=== PATIENT | female | born 1965 | race Caucasian/White ===

== ENCOUNTER 2016-06-20 10:40 | Inpatient (IN) | payer OTHER ==
--- NOTE | 2016-06-20 11:21 | ED ---
Extremity Problem HPI - General Chief complaint: Extremity Problem,Nontraumatic Stated complaint: cellulitius Time Seen by Provider: 06/20/16 11:06 Source: patient, RN notes reviewed Mode of arrival: ambulatory Limitations: no limitations - History of Present Illness Initial comments: 50-year-old female presents emergency Department chief complaint left hand, arm infection. Patient states with the last 24 hours she has noticed streaking from her left hand at the MCP all up into her left axilla. Patient states she' s had this in the past and has almost from this. Patient states have not been able to figure out what causes this. Patient states that she did not have an injury to her hand but she states she has a wound at her MCP. Patient denies any fever but states that she's had chills. She states that she just generally does not feel well. Patient denies any chest pain, shortness breath, headache or dizziness. - Related Data Home Medications Medication Instructions Recorded Confirmed Aspirin/Acetaminophen/Caffeine 2 tab PO DAILY PRN 06/20/16 06/20/16 [Excedrin Migraine Caplet] Dronabinol [Dronabinol] 2.5 mg PO BID 06/20/16 06/20/16 Gabapentin [Neurontin] 600 mg PO TID 06/20/16 06/20/16 Rizatriptan Benzoate [Rizatriptan] 10 mg PO DAILY PRN 06/20/16 06/20/16 diphenhydrAMINE [Benadryl] 25 mg PO HS 06/20/16 06/20/16 traMADol HCL [Tramadol HCl] 50 mg PO HS 06/20/16 06/20/16 Previous Rx's Medication Instructions Recorded Albuterol Sulfate [Ventolin HFA] 2 puff INHALATION Q4H PRN #1 12/09/13 inhaler LORazepam [Ativan] 1 mg PO BID PRN #12 tab 12/15/13 Loratadine [Claritin] 10 mg PO DAILY #30 tab 05/17/14 Metoprolol Tartrate [Lopressor] 25 mg PO BID #14 tablet 05/17/14 Ondansetron Odt [Zofran ODT] 4 mg PO Q8HR PRN #15 tab 06/16/15 Allergies Allergy/AdvReac Type Severity Reaction Status Date / Time metoclopramide HCl Allergy Anaphylaxis Verified 06/20/16 12:30 [From Reglan] morphine Allergy Anaphylaxis Verified 06/20/16 12:30 prochlorperazine edisylate Allergy Anaphylaxis Verified 06/20/16 12:30 [From Compazine] prochlorperazine maleate Allergy Anaphylaxis Verified 06/20/16 12:30 [From Compazine] Tetracyclines Allergy Anaphylaxis Verified 06/20/16 12:30 Review of Systems ROS Statement: Those systems with pertinent positive or pertinent negative responses have been documented in the HPI. ROS Other: All systems not noted in ROS Statement are negative. Past Medical History Past Medical History: GERD/Reflux, Hypertension Additional Past Medical History / Comment(s): pancreatitis, IBS, neuropathy, Renauds, back PAIN, migraines, vitamin D deficiency History of Any Multi-Drug Resistant Organisms: None Reported Past Surgical History: Cholecystectomy, Tonsillectomy Additional Past Surgical History / Comment(s): neuroma, cervix, permanent stitches in common bile duct and pancreatic duct Past Psychological History: Anxiety, Depression Smoking Status: Current every day smoker Past Alcohol Use History: None Reported Past Drug Use History: Marijuana General Exam Limitations: no limitations General appearance: alert, in no apparent distress Head exam: Present: atraumatic, normocephalic, normal inspection Respiratory exam: Present: normal lung sounds bilaterally. Absent: respiratory distress, wheezes, rales, rhonchi, stridor Cardiovascular Exam: Present: regular rate, normal rhythm, normal heart sounds. Absent: systolic murmur, diastolic murmur, rubs, gallop, clicks Extremities exam: Present: other (Left hand there is 2 pustules noted at the MCP on the dorsal aspect with erythematous streaking from the hand to her left axilla there is no palpable lymph nodes in the left axilla pulses are equal bilaterally) Neurological exam: Present: alert Skin exam: Present: warm, dry Course Vital Signs 06/20/16 10:45 Temperature 98.8 F Pulse Rate 88 Respiratory 20 Rate Blood Pressure 119/75 O2 Sat by Pulse 98 Oximetry Medical Decision Making - Lab Data Result diagrams: 06/20/16 12:24 06/20/16 12:24 Lab Results 06/20/16 06/20/16 Range/Units 12:24 12:24 WBC 8.3 (3.8-10.6) k/uL RBC 4.22 (3.80-5.40) m/uL Hgb 13.7 (11.4-16.0) gm/dL Hct 41.2 (34.0-46.0) % MCV 97.6 (80.0-100.0) fL MCH 32.3 (25.0-35.0) pg MCHC 33.1 (31.0-37.0) g/dL RDW 13.2 (11.5-15.5) % Plt Count 267 (150-450) k/uL Neutrophils % 82 % Lymphocytes % 13 % Monocytes % 3 % Eosinophils % 1 % Basophils % 0 % Neutrophils # 6.7 (1.3-7.7) k/uL Lymphocytes # 1.1 (1.0-4.8) k/uL Monocytes # 0.3 (0-1.0) k/uL Eosinophils # 0.1 (0-0.7) k/uL Basophils # 0.0 (0-0.2) k/uL Sodium 143 (137-145) mmol/L Potassium 4.3 (3.5-5.1) mmol/L Chloride 109 H (98-107) mmol/L Carbon Dioxide 25 (22-30) mmol/L Anion Gap 9 mmol/L BUN 12 (7-17) mg/dL Creatinine 0.55 (0.52-1.04) mg/dL Est GFR (MDRD) Af Amer >60 (>60 ml/min/1.73 sqM) Est GFR (MDRD) Non-Af >60 (>60 ml/min/1.73 sqM) Glucose 99 (74-99) mg/dL Calcium 9.4 (8.4-10.2) mg/dL Total Bilirubin 0.5 (0.2-1.3) mg/dL AST 21 (14-36) U/L ALT 18 (9-52) U/L Alkaline Phosphatase 47 (38-126) U/L Total Protein 7.5 (6.3-8.2) g/dL Albumin 4.4 (3.5-5.0) g/dL Disposition Clinical Impression: Cellulitis, Lymphangitis Disposition: ADMITTED IP TO THIS [facility] Condition: Fair
[2016-06-20 12:33] LABS: Basophils % (A) 0 %; CH 33.1; CHCM 34.1; Eosinophils # (A) 0.1 k/uL (0-0.7); Eosinophils % (A) 1 %; HCT 41.2 % (34.0-46.0); HDW 2.49; HGB 13.7 gm/dL (11.4-16.0); Luc # (Auto) 0.08; Luc % (Auto) 1; Lymphocytes # (A) 1.1 k/uL (1.0-4.8); Lymphocytes % (A) 13 %; MCH 32.3 pg (25.0-35.0); MCHC 33.1 g/dL (31.0-37.0); MCV 97.6 fL (80.0-100.0); Monocytes # (A) 0.3 k/uL (0-1.0); Monocytes % (A) 3 %; Neutrophils # (A) 6.7 k/uL (1.3-7.7); Neutrophils % (A) 82 %; RBC 4.22 m/uL (3.80-5.40); RDW 13.2 % (11.5-15.5); WBC 8.3 k/uL (3.8-10.6); WBC (Perox) 8.33
[2016-06-20 12:45] LABS: Anion Gap 9 mmol/L; Calcium 9.4 mg/dL (8.4-10.2); Carbon Dioxide 25 mmol/L (22-30); Chloride 109 mmol/L (98-107); Glucose 99 mg/dL (74-99); Non-African American GFR(MDRD) >60 (>60 ml/min/1.73 sqM); Sodium 143 mmol/L (137-145); Total Bilirubin 0.5 mg/dL (0.2-1.3); Total Protein 7.5 g/dL (6.3-8.2)
[2016-06-20 12:47] LABS: ALT 18 U/L (9-52); AST 21 U/L (14-36); Alkaline Phosphatase 47 U/L (38-126); Blood Urea Nitrogen 12 mg/dL (7-17); Potassium 4.3 mmol/L (3.5-5.1)
[2016-06-20] MEDS ORDERED: IV VANCOMYCIN PER PHARMACY 1 EACH MISC MISCELLANE PRN (12:56)
[2016-06-20] MEDS ORDERED: AMPICILLIN-SULBACTAM 3 GM in SODIUM CHLORIDE 0.9% 100 ML IVPB STA (12:58)
[2016-06-20] MEDS ORDERED: ACETAMINOPHEN TAB 325 MG TAB PO PRN (12:59)
[2016-06-20] MEDS ORDERED: NALOXONE 0.4 MG/ML 1 ML VIAL IV PRN (12:59)
[2016-06-20] MEDS ORDERED: IBUPROFEN 400 MG TAB PO PRN (12:59)
[2016-06-20] MEDS ORDERED: SUMAtriptan SUCCINATE 50 MG TAB PO PRN (13:01)
[2016-06-20] MEDS ORDERED: ALBUTEROL NEBULIZED 2.5 MG/3 ML INHALATION PRN (13:01)
[2016-06-20] MEDS ORDERED: ONDANSETRON ODT 4 MG TAB PO PRN (13:01)
[2016-06-20] MEDS ORDERED: VANCOMYCIN 1,250 MG in SODIUM CHLORIDE 0.9% 250 ML IVPB STA (13:02)
[2016-06-20 14:38] VITALS: BMI 19.2
[2016-06-20] MEDS: GABAPENTIN 300 MG CAP PO SCH ×2 (15:10→20:48)
[2016-06-20] MEDS: NICOTINE 14MG/24HR PATCH TRANSDERM SCH (16:14)
[2016-06-20] MEDS: DRONABINOL 2.5 MG CAP PO SCH (16:14)
[2016-06-20] MEDS ORDERED: ASPIRIN-ACET-CAFF 250-250-65MG 1 EACH TAB PO PRN (20:44)
[2016-06-20] MEDS: diphenhydrAMINE 25 MG CAP PO SCH (20:48)
[2016-06-20] MEDS: LORazepam 1 MG TAB PO PRN (20:48)
[2016-06-20] MEDS: traMADol 50 MG TAB PO SCH (20:48)
[2016-06-20] MEDS: METOPROLOL TARTRATE 25 MG TAB PO SCH (20:48)
[2016-06-20] MEDS ORDERED: TEMAZEPAM 15 MG CAP PO PRN (21:00)
[2016-06-20] MEDS: VANCOMYCIN 1,000 MG in SODIUM CHLORIDE 0.9% 250 ML IVPB SCH (21:36)
[2016-06-21] MEDS: AMPICILLIN-SULBACTAM 3 GM in SODIUM CHLORIDE 0.9% 100 ML IVPB SCH ×4 (00:53→23:29)
[2016-06-21 02:48] LABS: Amorphous Sediment,Urine Rare /hpf; Appearance,Urine Turbid (Clear); Bilirubin,Urine Negative (Negative); Glucose,Urine (UA) Negative (Negative); Ketones,Urine Negative (Negative); Leukocyte Esterase,Urine Negative (Negative); Mucus,Urine Many /hpf; Nitrite,Urine Negative (Negative); Particle Count 14759; Protein,Urine 1+ (Negative); Specific Gravity,Urine 1.028 (1.001-1.035); Squamous Epithelial Cell,Urine 11 /hpf (0-4); UA Billing (MACRO vs. MICRO) MICRO; Urobilinogen,Urine <2.0 mg/dL (<2.0); WBC,Urine 9 /hpf (0-5)
[2016-06-21] MEDS: DRONABINOL 2.5 MG CAP PO SCH ×2 (07:56→17:31)
[2016-06-21] MEDS: LORATADINE 10 MG TAB PO SCH (07:57)
[2016-06-21] MEDS: METOPROLOL TARTRATE 25 MG TAB PO SCH ×2 (07:57→20:45)
[2016-06-21] MEDS: GABAPENTIN 300 MG CAP PO SCH ×3 (07:57→21:05)
[2016-06-21] MEDS: NICOTINE 14MG/24HR PATCH TRANSDERM SCH (07:58)
--- NOTE | 2016-06-21 08:10 | HP ---
DATE OF ADMISSION: Chief complaints are pain and swelling of the hand with red streaking. HISTORY OF PRESENT ILLNESS: This is a 50-year-old woman with a past medical history of GERD, hypertension, history of pancreatitis, irritable bowel syndrome, history of peripheral neuropathy, Raynaud's syndrome, history of back pain, migraines, vitamin D deficiency, tonsillectomy, cholecystectomy, history of neuroma, history of History of anxiety, depression, PTSD not otherwise specified. History of nicotine dependence, being followed by Dr. Finch in the outpatient setting. Has a recurrent infection of the left hand on several occasions which for the last 20 years which the patient has been dealing with. The patient had multiple evaluations in multiple hospitals including [facility], [facility] and other hospitals without any definite diagnosis according to her and also varying diagnosis. The current episode started about 24 hours ago as redness and subsequently patient had discharge and streaking going up the arm. The primary lesion is around the metacarpal phalangeal joints on the dorsum of the left hand. This is no history of any fever, chills or rigors. There is no history of headache, loss of consciousness or seizures. PAST MEDICAL HISTORY: History of GERD, hypertension, history of pancreatitis, IBS, neuropathy, Raynaud's, back pain, migraine, anxiety, depression, PTSD, cholecystectomy, tonsillectomy. Medications prior to admission include, home medications are: 1. Rizatriptan 10 mg daily p.r.n. 2. Excedrin 2 tablets daily p.r.n. 3. Ultram 50 mg q.h.s. 4. Benadryl 25 mg q.h.s. 5. Dronabinol 2.5 mg p.o. b.i.d. 6. Lopressor 25 mg b.i.d. 7. Claritin 10 mg daily. 8. Ativan 1 mg b.i.d. p.r.n. 9. Neurontin 600 mg p.o. t.i.d. 10. Ventolin HFA 2 puffs q.4 p.r.n. 11. Zofran ODT 4 mg q.8 p.r.n. Allergies are METOCLOPRAMIDE, MORPHINE, COMPAZINE, TETRACYCLINE. FAMILY HISTORY: No history of any heart disease or strokes in the family. SOCIAL HISTORY: History of current smoking. No history of alcohol or illicit substance abuse. REVIEW OF SYSTEMS: ENT: No diminishing hearing or diminished vision. CARDIOVASCULAR SYSTEM: No angina or palpitations. RESPIRATORY: No cough, hemoptysis. GI: No nausea. : No dysuria. NERVOUS SYSTEM: No numbness or weakness. ALLERGY/IMMUNOLOGY: No asthma or hayfever. MUSCULOSKELETAL: As mentioned earlier. DERMATOLOGY: Negative. ENDOCRINE: No history of diabetes or hypothyroidism. CONSTITUTIONAL: As mentioned earlier. RHEUMATOLOGY: As mentioned earlier. PSYCHIATRY: As mentioned earlier. PHYSICAL EXAMINATION: Patient is alert and oriented x3. Pulse 79, blood pressure 120/81, respirations 16, temperature is 97.3, pulse ox 99% on room air. HEENT: Conjunctivae normal, oral mucosa moist. Neck is no jugular venous distention. No carotid bruit. No lymph node enlargement. CARDIOVASCULAR SYSTEM: S1, S2, muffled. No S3, no S4. RESPIRATION: Breath sounds diminished at the bases. A few rhonchi, no crackles. Abdomen is soft, nontender. No mass palpable. LEGS: No edema, no swelling. NERVOUS SYSTEM: Higher functions as mentioned. Cranial nerves grossly intact. No focal motor or sensory deficits. LYMPHATICS: No lymph node enlargement in the neck, axillae or groin. Otherwise, examination of the left arm with significant erythema and punctate lesions in the dorsum of second metacarpophalangeal joint with some erythema, tenderness and some streaking has been going up to the axilla. Lab investigations at this time shows WBC is 8.3, hemoglobin is 13.7, chloride is 109. ASSESSMENT: 1. Acute cellulitis of the right hand dorsum with lymphangitis. 2. History of recurrent cellulitis and lymphangitis. 3. History of gastroesophageal reflux disease. 4. Hypertension history. 5. History of pancreatitis. 6. History of irritable bowel syndrome. 7. History of neuropathy. 8. History of Raynaud's. 9. History of back pain. 10. History of migraines. 11. History of degenerative joint disease and a herniated at C4-5. 12. History of cervical cancer. 13. History of cholecystectomy. 14. History of tonsillectomy. 15. History of neuroma. 16. History of anxiety, depression, posttraumatic stress disorder, not otherwise specified. 17. History of nicotine dependence. RECOMMENDATION: In this 50-year-old woman who presented with multiple complex medical issues, will monitor the patient closely. Continue with the current symptomatic treatment with initial broad-spectrum IV antibiotics and also Infectious Disease evaluation. The home medications will be continued. All cultures were obtained. Prognosis guarded because of multiple complex medical issues. Further recommendations to follow. A copy of this dictation will be forwarded to Dr. Finch who is the primary physician. See orders for details. DVT prophylaxis. MTDD
[2016-06-21 09:56] LABS: Basophils % (A) 0 %; CH 32.8; CHCM 33.3; Eosinophils # (A) 0.1 k/uL (0-0.7); Eosinophils % (A) 1 %; HCT 35.9 % (34.0-46.0); HDW 2.42; HGB 11.9 gm/dL (11.4-16.0); Luc # (Auto) 0.08; Luc % (Auto) 1; Lymphocytes # (A) 1.2 k/uL (1.0-4.8); Lymphocytes % (A) 16 %; MCH 32.8 pg (25.0-35.0); MCHC 33.2 g/dL (31.0-37.0); MCV 98.8 fL (80.0-100.0); Mean Platelet Volume 8.4; Monocytes # (A) 0.4 k/uL (0-1.0); Monocytes % (A) 5 %; Neutrophils # (A) 5.7 k/uL (1.3-7.7); Neutrophils % (A) 77 %; RBC 3.63 m/uL (3.80-5.40); WBC 7.4 k/uL (3.8-10.6); WBC (Perox) 7.48
[2016-06-21 10:26] LABS: Anion Gap 8 mmol/L; Blood Urea Nitrogen 10 mg/dL (7-17); Calcium 8.7 mg/dL (8.4-10.2); Carbon Dioxide 24 mmol/L (22-30); Chloride 110 mmol/L (98-107); Glucose 100 mg/dL (74-99); Non-African American GFR(MDRD) >60 (>60 ml/min/1.73 sqM); Potassium 3.9 mmol/L (3.5-5.1); Sodium 142 mmol/L (137-145)
[2016-06-21] MEDS: VANCOMYCIN 1,000 MG in SODIUM CHLORIDE 0.9% 250 ML IVPB SCH ×2 (10:57→21:05)
[2016-06-21 11:58] LABS: Erythrocyte Sedimentation Rate 2 mm/hr (0-20)
--- NOTE | 2016-06-21 12:26 | P.CONS ---
History of Present Illness - Reason for Consult Consult date: 06/21/16 Left arm cellulitis - History of Present Illness This is a 50-year-old female. She gives history that she has had 18 episodes of cellulitis to the left hand over the past 20 years. She states 20 years ago she did have an I&D done to the hand. She was last treated in June 2015 and she came to the [facility] emergency center on 2 occasions for treatment. She was treated with Cefzil for 10 days and valacyclovir for herpes zoster dermatitis and was later changed to clindamycin and Valtrex was continued. Patient states that she had sudden onset of left hand redness swelling and streaking that went all the way up to her axilla area. She states she has had chills at home. She denies any new injury or trauma to the hand. She does have cats in the home and denies any cat scratch or bite to the area. She presented to [facility] emergency center with the above complaint. She has been afebrile, white count 8.3. Urinalysis was turbid nitrate and leukoesterase negative. Urine drug screen was positive for benzodiazepines and marijuana. Patient does use a medical marijuana card and is also on Marinol. Blood culture is status received. Patient was started on Unasyn and vancomycin and [facility]. She has had significant improvement of the redness spreading up her arm. There is currently no active drainage. Tetanus status is up-to-date. Review of Systems All systems: negative Constitutional: Reports weakness, Denies chills, Denies fever Eyes: denies blurred vision, denies pain Ears, nose, mouth and throat: Denies headache, Denies sore throat Cardiovascular: Denies chest pain, Denies shortness of breath Respiratory: Denies cough Gastrointestinal: Denies abdominal pain, Denies diarrhea, Denies nausea, Denies vomiting Genitourinary: Denies dysuria, Denies hematuria Musculoskeletal: Denies myalgias Integumentary: Reports color changes, Reports darkening of skin, Reports wounds , Denies pruritus, Denies rash Neurological: Denies numbness, Denies weakness Psychiatric: Denies anxiety, Denies depression Endocrine: Denies fatigue, Denies weight change Past Medical History Past Medical History: GERD/Reflux, Hypertension Additional Past Medical History / Comment(s): pancreatitis, IBS, neuropathy, Raynauds, back PAIN, migraines, herniated disks C4 and C5; Cervical cancer History of Any Multi-Drug Resistant Organisms: None Reported Past Surgical History: Cholecystectomy, Tonsillectomy Additional Past Surgical History / Comment(s): neuroma, cervical coninition, permanent stitches in common bile duct and pancreatic, and sphincter of Oddi duct Past Anesthesia/Blood Transfusion Reactions: No Reported Reaction Past Psychological History: Anxiety, Depression, PTSD Smoking Status: Current every day smoker Past Alcohol Use History: None Reported Additional Past Alcohol Use History / Comment(s): Patient is a smoker of half a pack per day for 13 years. She smokes marijuana and has a medical marijuana card. She is also on Marinol. She denies any street drug use. She denies any alcohol use. Her 22-year-old son lives with her. There are cats in the home. She denies any recent travel and no hobbies such as gardening. Past Drug Use History: None Reported Medications and Allergies Home Medications Medication Instructions Recorded Confirmed Type Aspirin/Acetaminophen/Caffeine 2 tab PO DAILY PRN 06/20/16 06/20/16 History [Excedrin Migraine Caplet] Dronabinol [Dronabinol] 2.5 mg PO BID 06/20/16 06/20/16 History Gabapentin [Neurontin] 600 mg PO TID 06/20/16 06/20/16 History Rizatriptan Benzoate [Rizatriptan] 10 mg PO DAILY PRN 06/20/16 06/20/16 History diphenhydrAMINE [Benadryl] 25 mg PO HS 06/20/16 06/20/16 History traMADol HCL [Tramadol HCl] 50 mg PO HS 06/20/16 06/20/16 History Allergies Allergy/AdvReac Type Severity Reaction Status Date / Time metoclopramide HCl Allergy Anaphylaxis Verified 06/20/16 12:30 [From Reglan] morphine Allergy Anaphylaxis Verified 06/20/16 12:30 prochlorperazine edisylate Allergy Anaphylaxis Verified 06/20/16 12:30 [From Compazine] prochlorperazine maleate Allergy Anaphylaxis Verified 06/20/16 12:30 [From Compazine] Tetracyclines Allergy Anaphylaxis Verified 06/20/16 12:30 Physical Exam Vitals: Vital Signs Temp Pulse Pulse Pulse Resp BP BP 06/21/16 07:00 98.2 F 69 20 125/70 06/20/16 23:00 98.3 F 77 18 115/72 06/20/16 20:30 83 123/83 06/20/16 19:14 70 06/20/16 19:02 70 06/20/16 14:59 97.3 F L 79 16 120/81 06/20/16 13:53 98.2 F 69 20 117/75 Pulse Ox 06/21/16 07:00 98 06/20/16 23:00 97 06/20/16 20:30 06/20/16 19:14 06/20/16 19:02 06/20/16 14:59 99 06/20/16 13:53 98 Intake and Output 06/20/16 06/21/16 06/21/16 22:59 06:59 14:59 Intake Total 250 100 Balance 250 100 Intake: IV 250 Vancomycin 1,000 mg In 250 Sodium Chloride 0.9% 250 ml @ 125 mls/hr IVPB Q12HR@1000,2200 [facility] Rx#: [id number] Oral 100 Other: Voiding Method Toilet # Voids 0 1 Gen: This is a 50-year-old female. She is sitting up in bed and appears to be in no acute distress. HEENT: Head is atraumatic, normocephalic. Pupils equal, round. Sclerae is anicteric. Conjunctiva pink. Mucous members of the mouth are moist. Dentition is in poor order. NECK: Supple. No JVD. No lymphadenopathy. No thyromegaly. LUNGS: Clear to auscultation. No wheezes or rhonchi. No intercostal retractions. HEART: Regular rate and rhythm. No murmur. ABDOMEN: Soft. Bowel sounds are present. No masses. No tenderness. EXTREMITIES: No pedal edema. No calf tenderness. Dorsalis pedis is weak bilaterally. To the right dorsal hand there is a lesion over the distal third metacarpal with no drainage. There is erythema and edema over the hand with erythema spreading up to the antecubital area. NEUROLOGICAL: Patient is awake, alert and oriented x3. Cranial nerves 2 through 12 are grossly intact. Results Results: Laboratory Results WBC 7.4 k/uL (3.8-10.6) 06/21/16 09:05 RBC 3.63 m/uL (3.80-5.40) L 06/21/16 09:05 Hgb 11.9 gm/dL (11.4-16.0) 06/21/16 09:05 Hct 35.9 % (34.0-46.0) 06/21/16 09:05 MCV 98.8 fL (80.0-100.0) 06/21/16 09:05 MCH 32.8 pg (25.0-35.0) 06/21/16 09:05 MCHC 33.2 g/dL (31.0-37.0) 06/21/16 09:05 RDW 13.0 % (11.5-15.5) 06/21/16 09:05 Plt Count 194 k/uL (150-450) 06/21/16 09:05 Neutrophils % 77 % 06/21/16 09:05 Lymphocytes % 16 % 06/21/16 09:05 Monocytes % 5 % 06/21/16 09:05 Eosinophils % 1 % 06/21/16 09:05 Basophils % 0 % 06/21/16 09:05 Neutrophils # 5.7 k/uL (1.3-7.7) 06/21/16 09:05 Lymphocytes # 1.2 k/uL (1.0-4.8) 06/21/16 09:05 Monocytes # 0.4 k/uL (0-1.0) 06/21/16 09:05 Eosinophils # 0.1 k/uL (0-0.7) 06/21/16 09:05 Basophils # 0.0 k/uL (0-0.2) 06/21/16 09:05 ESR 2 mm/hr (0-20) 06/21/16 09:05 Sodium 142 mmol/L (137-145) 06/21/16 09:05 Potassium 3.9 mmol/L (3.5-5.1) 06/21/16 09:05 Chloride 110 mmol/L (98-107) H 06/21/16 09:05 Carbon Dioxide 24 mmol/L (22-30) 06/21/16 09:05 Anion Gap 8 mmol/L 06/21/16 09:05 BUN 10 mg/dL (7-17) 06/21/16 09:05 Creatinine 0.51 mg/dL (0.52-1.04) L 06/21/16 09:05 Est GFR (MDRD) Af Amer >60 (>60 ml/min/1.73 sqM) 06/21/16 09:05 Est GFR (MDRD) Non-Af >60 (>60 ml/min/1.73 sqM) 06/21/16 09:05 Glucose 100 mg/dL (74-99) H 06/21/16 09:05 Plasma Lactic Acid Karlo 1.2 mmol/L (0.7-2.0) 06/20/16 12:48 Calcium 8.7 mg/dL (8.4-10.2) 06/21/16 09:05 Total Bilirubin 0.5 mg/dL (0.2-1.3) 06/20/16 12:24 AST 21 U/L (14-36) 06/20/16 12:24 ALT 18 U/L (9-52) 06/20/16 12:24 Alkaline Phosphatase 47 U/L (38-126) 06/20/16 12:24 C-Reactive Protein <5.0 mg/L (<10.0) 06/20/16 12:24 Total Protein 7.5 g/dL (6.3-8.2) 06/20/16 12:24 Albumin 4.4 g/dL (3.5-5.0) 06/20/16 12:24 Urine Color Yellow 06/21/16 02:30 Urine Appearance Turbid (Clear) H 06/21/16 02:30 Urine pH 7.0 (5.0-8.0) 06/21/16 02:30 Ur Specific Indian 1.028 (1.001-1.035) 06/21/16 02:30 Urine Protein 1+ (Negative) H 06/21/16 02:30 Urine Glucose (UA) Negative (Negative) 06/21/16 02:30 Urine Ketones Negative (Negative) 06/21/16 02:30 Urine Blood Negative (Negative) 06/21/16 02:30 Urine Nitrite Negative (Negative) 06/21/16 02:30 Urine Bilirubin Negative (Negative) 06/21/16 02:30 Urine Urobilinogen <2.0 mg/dL (<2.0) 06/21/16 02:30 Ur Leukocyte Esterase Negative (Negative) 06/21/16 02:30 Urine WBC 9 /hpf (0-5) H 06/21/16 02:30 Ur Squamous Epith Cells 11 /hpf (0-4) H 06/21/16 02:30 Amorphous Sediment Rare /hpf (None) H 06/21/16 02:30 Urine Mucus Many /hpf (None) H 06/21/16 02:30 Urine Opiates Screen Not Detected (NotDetected) 06/21/16 02:30 Ur Oxycodone Screen Not Detected (NotDetected) 06/21/16 02:30 Urine Methadone Screen Not Detected (NotDetected) 06/21/16 02:30 Ur Propoxyphene Screen Not Detected (NotDetected) 06/21/16 02:30 Ur Barbiturates Screen Not Detected (NotDetected) 06/21/16 02:30 U Tricyclic Antidepress Not Detected (NotDetected) 06/21/16 02:30 Ur Phencyclidine Scrn Not Detected (NotDetected) 06/21/16 02:30 Ur Amphetamines Screen Not Detected (NotDetected) 06/21/16 02:30 U Methamphetamines Scrn Not Detected (NotDetected) 06/21/16 02:30 U Benzodiazepines Scrn Detected (NotDetected) H 06/21/16 02:30 Urine Cocaine Screen Not Detected (NotDetected) 06/21/16 02:30 U Marijuana (THC) Screen Detected (NotDetected) H 06/21/16 02:30 CBC & Chem 7: 06/21/16 09:05 06/21/16 09:05 Labs: Abnormal Lab Results - Last 24 Hours (Table) 06/21/16 Range/Units 02:30 Urine Appearance Turbid H (Clear) Urine Protein 1+ H (Negative) Urine WBC 9 H (0-5) /hpf Ur Squamous Epith Cells 11 H (0-4) /hpf Amorphous Sediment Rare H (None) /hpf Urine Mucus Many H (None) /hpf U Benzodiazepines Scrn Detected H (NotDetected) U Marijuana (THC) Screen Detected H (NotDetected) Assessment and Plan Plan: This is a 50-year-old female presented to the hospital with cellulitis to the left hand with a descending lymphangitis. She has been started on Unasyn and vancomycin with significant improvement of her symptoms. No wound cultures available. Blood cultures status received. Tetanus status is up-to-date. Immunocompromise workup will be placed. Ensure has been resumed per patient's request and probiotic has been started. Continue supportive care. Further recommendations as patient progresses. The above dictated assessment and findings were discussed with Dr. Sal. The impression and plan of care have been directed as dictated. Sara Dao nurse practitioner acting as scribe for Dr. Sal. Time with Patient: Greater than 30
--- NOTE | 2016-06-21 16:13 | P.PN ---
Subjective Disservice by [id number]. Progress note being dictated for Dr. Johnson. Interval history: This is a 50-year-old female admitted with recurrent left hand cellulitis with lymphangitis and multiple other medical issues. Maintained on vancomycin and Unasyn. Improving. Denies pain of affected extremity. Afebrile, normal WBC. Denies chest pain, palpitations or increasing shortness of breath. Objective - Vital Signs Vital signs: Vital Signs Temp 98.1 F 06/21/16 15:00 Pulse 55 L 06/21/16 15:00 Resp 18 06/21/16 15:00 BP 121/76 06/21/16 15:00 Pulse Ox 99 06/21/16 15:00 Intake & Output 06/20/16 06/21/16 06/21/16 18:59 06:59 18:59 Intake Total 350 Balance 350 Weight 47.627 kg 47.627 kg Intake: IV 250 Vancomycin 1,000 mg In 250 Sodium Chloride 0.9% 250 ml @ 125 mls/hr IVPB Q12HR@1000,2200 [facility] Rx#: [id number] Oral 100 Other: Voiding Method Toilet Toilet # Voids 1 3 - Exam PHYSICAL EXAM: VITAL SIGNS: As above GENERAL: Sitting up in bed, no acute distress] HEENT: [Pupils equal conjunctiva normal.] NECK: [Supple, no JVD] RESPIRATORY EFFORT:[Normal] LUNGS: [Lungs clear, no wheezes rhonchi or crackles] CARDIOVASCULAR[regular S1 and S2, no murmurs rubs or gallops, decreasing edema] GI: [Abdomen soft, nontender, positive bowel sounds.] PSYCH: [Alert and oriented -3, mood and affect normal.] SKIN: Left hand, decreased pinkness, erythema, positive edema, warm, positive radial pulse, no drainage NEURO: No focal deficits, moves all 4 extremities Microbiology 06/20/16 12:24 Blood Blood Culture - Preliminary No Growth after 24 hours 06/21/16 02:30 Urine,Clean Catch Urine Culture - Preliminary - Labs CBC & Chem 7: 06/21/16 09:05 06/21/16 09:05 Labs: Abnormal Lab Results - Last 24 Hours (Table) 06/21/16 06/21/16 06/21/16 Range/Units 02:30 09:05 09:05 RBC 3.63 L (3.80-5.40) m/uL Chloride 110 H (98-107) mmol/L Creatinine 0.51 L (0.52-1.04) mg/dL Glucose 100 H (74-99) mg/dL Urine Appearance Turbid H (Clear) Urine Protein 1+ H (Negative) Urine WBC 9 H (0-5) /hpf Ur Squamous Epith Cells 11 H (0-4) /hpf Amorphous Sediment Rare H (None) /hpf Urine Mucus Many H (None) /hpf U Benzodiazepines Scrn Detected H (NotDetected) U Marijuana (THC) Screen Detected H (NotDetected) Microbiology - Last 24 Hours (Table) 06/21/16 02:30 Urine Culture - Preliminary Urine,Clean Catch Assessment and Plan Plan: 1. Acute cellulitis of left hand dorsum with lymphangitis,recurrent]. 2. Gastroesophageal reflux disease 3. [Hypertension]. 4. [Irritable bowel syndrome, history of]. 5. [Neuropathy]. 6. [Raynauds disease]. 7. [Chronic Back pain, degenerative joint disease, herniated at C4-5]. 8. History of anxiety, depression, posttraumatic stress disorder, not otherwise specified 9. History of nicotine dependence Plan: Continue on current medication regime , antibiotics, monitoring and symptomatic treatment. Antibiotics as per infectious disease. Follow cultures closely. Further recommendations to follow. The impression and plan of care has been dictated as directed. : I performed a H&P examination of this patient and discussed the same with the dictator. I agree with the dictator's note. Any additional findings/opinions/ etc. will be noted.
[2016-06-21] MEDS: LACTOBACILLUS ACIDOPH & BULGAR 1 EACH PACKET PO SCH (20:37)
--- NOTE | 2016-06-21 20:41 | P.CON ---
Consult Note - . Consult date: 06/21/16 Assessment/Plan:: This is a 50-year-old female. She gives history that she has had 18 episodes of cellulitis to the left hand over the past 20 years. She states 20 years ago she did have an I&D done to the hand. She was last treated in June 2015 and she came to the [facility] emergency center on 2 occasions for treatment. She was treated with Cefzil for 10 days and valacyclovir for herpes zoster dermatitis and was later changed to clindamycin and Valtrex was continued. Patient states that she had sudden onset of left hand redness swelling and streaking that went all the way up to her axilla area. She states she has had chills at home. She denies any new injury or trauma to the hand. She does have cats in the home and denies any cat scratch or bite to the area. She presented to [facility] emergency center with the above complaint. She has been afebrile, white count 8.3. Urinalysis was turbid nitrate and leukoesterase negative. Urine drug screen was positive for benzodiazepines and marijuana. Patient does use a medical marijuana card and is also on Marinol. Blood culture is status received. Patient was started on Unasyn and vancomycin and admitted to the [facility] floor. She has had significant improvement of the redness spreading up her arm. There is currently no active drainage. Tetanus status is up-to-date. Please see the consult note is dictated by nurse practitioner Sara Hernándezneo. This pleasant 42-year-old woman has a very extensive past medical history for her age. She does relate that she's had many bouts of lesions to her left hand. She relates that it is always in the same spot. She develops a few blisters at the dorsum of the left third metacarpal head. After which she develops the ascending infection and lymphangitis. She's had several hospitalizations. 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 At this time with the occurrence, with a common lesion at the same place would make a herpetic filemon a likely source of her recurrent infection at this site. There is blister that is present in this is unroofed and material was sent for herpes PCR. Routine wound culture is also sent. She is receiving antibiotic therapy because of the ascending lymphangitis. It seems to be having quite a good response at this time. We'll continue current antibiotics while cultures are process. Oral antiviral therapy with Valtrex as initiated given the current high probability of the herpetic process. The patient is instructed about the potential. In that the drainage that would come from this area would be infectious. She does have a bit of a prodrome before the onset of the lesions. If it's happening once a year and we prove that it is herpetic in nature, she would be able to utilize a preemptive antiviral therapy in the future to prevent further severe disease. Given that it's only yearly would not likely be a candidate for daily antiviral suppressive therapy. The patient is a slight build and further workup is being initiated including an IgG level, and complement factors to ensure there is adequate immune response at this time. She has been for 5 years. I agree with evaluation, assessment and plan as dictated by nurse practitioner Mrs. Sara Dao.
[2016-06-21] MEDS: diphenhydrAMINE 25 MG CAP PO SCH (20:45)
[2016-06-21] MEDS: traMADol 50 MG TAB PO SCH (20:46)
[2016-06-21] MEDS ORDERED: valACYclovir 500 MG TAB PO SCH (21:00)
[2016-06-21] MEDS: LORazepam 1 MG TAB PO PRN (21:05)
[2016-06-22] MEDS: DRONABINOL 2.5 MG CAP PO SCH ×2 (07:51→16:28)
[2016-06-22] MEDS: LORazepam 1 MG TAB PO PRN (07:51)
[2016-06-22] MEDS: AMPICILLIN-SULBACTAM 3 GM in SODIUM CHLORIDE 0.9% 100 ML IVPB SCH ×2 (07:52→15:05)
[2016-06-22] MEDS: METOPROLOL TARTRATE 25 MG TAB PO SCH (07:52)
[2016-06-22] MEDS: GABAPENTIN 300 MG CAP PO SCH ×2 (07:52→15:06)
[2016-06-22] MEDS: LACTOBACILLUS ACIDOPH & BULGAR 1 EACH PACKET PO SCH (07:52)
[2016-06-22] MEDS: NICOTINE 14MG/24HR PATCH TRANSDERM SCH (07:52)
[2016-06-22] MEDS: LORATADINE 10 MG TAB PO SCH (07:52)
[2016-06-22] MEDS ORDERED: VANCOMYCIN TROUGH DUE 1 EACH MISC MISCELLANE ONE (09:00)
[2016-06-22] MEDS: valACYclovir HCL 1,000 MG TABLET PO SCH (09:36)
[2016-06-22 09:44] LABS: Basophils % (A) 1 %; CHCM 34.1; Eosinophils % (A) 1 %; HCT 36.3 % (34.0-46.0); HDW 2.49; Luc # (Auto) 0.09; Luc % (Auto) 2; Lymphocytes # (A) 1.2 k/uL (1.0-4.8); Lymphocytes % (A) 29 %; MCH 32.2 pg (25.0-35.0); MCHC 33.1 g/dL (31.0-37.0); MCV 97.2 fL (80.0-100.0); Mean Platelet Volume 7.3; Monocytes # (A) 0.3 k/uL (0-1.0); Monocytes % (A) 7 %; Neutrophils # (A) 2.4 k/uL (1.3-7.7); Neutrophils % (A) 61 %; RBC 3.74 m/uL (3.80-5.40); WBC 3.9 k/uL (3.8-10.6); WBC (Perox) 4.08
[2016-06-22 09:57] LABS: Anion Gap 8 mmol/L; Blood Urea Nitrogen 7 mg/dL (7-17); Calcium 8.8 mg/dL (8.4-10.2); Carbon Dioxide 24 mmol/L (22-30); Chloride 110 mmol/L (98-107); Glucose 91 mg/dL (74-99); Non-African American GFR(MDRD) >60 (>60 ml/min/1.73 sqM); Potassium 3.7 mmol/L (3.5-5.1); Sodium 142 mmol/L (137-145)
[2016-06-22] MEDS: VANCOMYCIN 1,000 MG in SODIUM CHLORIDE 0.9% 250 ML IVPB SCH ×2 (10:38→16:28)
--- NOTE | 2016-06-22 10:45 | PN ---
DATE OF SERVICE: 06/21/2016 This is a 50-year-old woman who was admitted with acute cellulitis of the left hand and recurrent lymphangitis, is being monitored closely and is on broad-spectrum IV antibiotics. Seen and evaluated the patient with the nurse practitioner. Please refer to the nurse practitioner's notes and impression documented as ascribed for further information.
[2016-06-22] MEDS ORDERED: METOPROLOL TARTRATE 25 MG TAB ONE (21:00)
[2016-06-22] MEDS ORDERED: LORazepam 1 MG TAB ONE (21:00)
[2016-06-22] MEDS ORDERED: diphenhydrAMINE 25 MG CAP ONE (21:00)
[2016-06-22] MEDS ORDERED: traMADol 50 MG TAB ONE (21:00)
[2016-06-22] MEDS ORDERED: GABAPENTIN 300 MG CAP ONE (21:00)
[2016-06-22] MEDS ORDERED: valACYclovir HCL 1,000 MG TABLET PO ONE (21:00)
[2016-06-23 07:26] VITALS: BP 121/76; PULSE 62; RESP 18; TEMP 97.1
[2016-06-23] MEDS: valACYclovir HCL 1,000 MG TABLET PO SCH ×2 (07:57→08:45)
[2016-06-23] MEDS: traMADol 50 MG TAB PO SCH (07:57)
[2016-06-23] MEDS: LACTOBACILLUS ACIDOPH & BULGAR 1 EACH PACKET PO SCH ×2 (07:57→08:45)
[2016-06-23] MEDS: METOPROLOL TARTRATE 25 MG TAB PO SCH ×2 (07:57→08:45)
[2016-06-23] MEDS: diphenhydrAMINE 25 MG CAP PO SCH (07:57)
[2016-06-23] MEDS: AMPICILLIN-SULBACTAM 3 GM in SODIUM CHLORIDE 0.9% 100 ML IVPB SCH ×2 (07:58→08:44)
[2016-06-23] MEDS: VANCOMYCIN 1,000 MG in SODIUM CHLORIDE 0.9% 250 ML IVPB SCH ×2 (07:58→10:34)
[2016-06-23] MEDS: GABAPENTIN 300 MG CAP PO SCH ×2 (07:58→08:45)
[2016-06-23] MEDS: DRONABINOL 2.5 MG CAP PO SCH (08:44)
[2016-06-23] MEDS: NICOTINE 14MG/24HR PATCH TRANSDERM SCH (08:45)
[2016-06-23] MEDS: LORATADINE 10 MG TAB PO SCH (08:45)
--- NOTE | 2016-06-23 11:28 | PN ---
DATE OF SERVICE: 06/22/2016 This 50-year-old woman who was admitted with acute cellulitis, also No chest pain, no palpitation, no fever. The patient was started on acyclovir. On exam, alert and oriented x3. Pulse is 71, blood pressure 123/78, temperature 98.9, pulse ox 98% on room air. HEENT: Conjunctivae normal. NECK: No JVD. CARDIAC: S1, S2 LUNGS: Diminished at the bases. A few rhonchi, no crackles. ABDOMEN: Soft, nontender. NEURO: No focal deficits. LABS: WBC 3, hemoglobin is 12, sodium 142, potassium 3.7. UA noted. ASSESSMENT: 1. Acute cellulitis of the left hand dorsum with lymphangitis, recurrent. 2. Gastroesophageal reflux disease. 3. Hypertension. 5. Irritable bowel syndrome history. 6. History of neuropathy. 7. History Raynaud's. 8. History of chronic back pain, degenerative joint disease and herniated disc C4-5. 9. History of anxiety and depression, posttraumatic stress disorder, not otherwise specified. 10. History of nicotine dependence. Recommendations and discussion: Recommendation to continue current medication, continue symptomatic treatment. Continue with antibiotics. Continue with antivirals. Guarded prognosis. Further recommendations to follow. MTDD
[2016-06-23 11:45] LABS: Basophils % (A) 1 %; CH 33.1; Eosinophils % (A) 1 %; HCT 36.8 % (34.0-46.0); HDW 2.63; HGB 12.8 gm/dL (11.4-16.0); Luc % (Auto) 2; Lymphocytes # (A) 1.5 k/uL (1.0-4.8); Lymphocytes % (A) 30 %; MCH 32.9 pg (25.0-35.0); MCHC 34.7 g/dL (31.0-37.0); MCV 94.9 fL (80.0-100.0); Mean Platelet Volume 7.1; Monocytes # (A) 0.3 k/uL (0-1.0); Monocytes % (A) 5 %; Neutrophils # (A) 3.1 k/uL (1.3-7.7); Neutrophils % (A) 62 %; RBC 3.88 m/uL (3.80-5.40); RDW 12.6 % (11.5-15.5); WBC (Perox) 5.29
[2016-06-23 11:48] LABS: Anion Gap 8 mmol/L; Blood Urea Nitrogen 10 mg/dL (7-17); Calcium 9.2 mg/dL (8.4-10.2); Carbon Dioxide 25 mmol/L (22-30); Chloride 109 mmol/L (98-107); Glucose 91 mg/dL (74-99); Non-African American GFR(MDRD) >60 (>60 ml/min/1.73 sqM); Potassium 4.7 mmol/L (3.5-5.1); Sodium 142 mmol/L (137-145)
[2016-06-23] MEDS ORDERED: VANCOMYCIN TROUGH DUE 1 EACH MISC MISCELLANE ONE (23:00)
--- NOTE | 2016-06-26 20:40 | DS ---
DATE OF ADMISSION: 06/20/2016 DATE OF DISCHARGE: 06/23/2016 FINAL DIAGNOSES: 1. Acute cellulitis of the left hand, dorsum, with lymphangitis, recurrent. 2. Gastroesophageal reflux disease. 3. Herpetic filemon possibly. 4. Hypertension. 5. Irritable bowel syndrome. 6. History of neuropathy. 7. History of Raynaud's. 8. History of chronic back pain, degenerative joint disease as well as herniated disc at C4-5. 9. History of anxiety, depression, post-traumatic disorder not otherwise specified. 10. History of nicotine dependence. 11. FULL CODE. DISCHARGE DISPOSITION: The patient will be discharged in stable condition with a guarded prognosis. Discharge cleared by multiple consultants. HISTORY OF PRESENT ILLNESS: This 50-year-old woman with a past medical history of severe cellulitis and infection of the dorsum of the left hand. The patient was thought to have a combination of cellulitis as well as herpetic filemon. Dr. Sal saw the patient. Patient was treated with antibiotics and antivirals; improved significantly. The cultures and pancultures are pending at this time. The complements levels are normal. Other reports are pending at this time. On exam, vitals are stable. CARDIOVASCULAR SYSTEM: S1, S2 muffled. ABDOMEN: Soft. NERVOUS SYSTEM: No focal deficit. DISCHARGE ADVICE AND MEDICATIONS: 1. Diet is cardiac. 2. Activity limited until followup. 3. Follow up with Dr. Finch in 1 to 2 days. 4. Follow up with Dr. Sal as recommended. 5. Albuterol HFA 2 puffs q.i.d. and p.r.n. 6. Augmentin 875 mg p.o. b.i.d. for 5 days. 7. Aspirin acetaminophen 2 tablets p.o. daily p.r.n. 8. Dronabinol 2.5 mg p.o. b.i.d. 9. Neurontin 600 mg p.o. b.i.d. 10. Ativan 1 mg b.i.d. p.r.n. 11. Claritin 10 mg p.o. daily. 12. Lopressor 25 mg p.o. b.i.d. 13. Habitrol 14 daily. 14. No smoking. 15. Zofran 4 mg p.o. q.8 p.r.n. 16. Rizatriptan 10 mg daily p.r.n. 17. Benadryl 25 mg p.o. at bedtime. 18. Ultram 50 mg p.o. at bedtime. 19. Valtrex 1000 mg p.o. b.i.d. for 10 days and then continue to follow with Dr. Sal. Once again, the patient will be discharged in stable condition with guarded prognosis. [facility]
== END 2016-06-23 15:33 | disposition home or self-care (01) | DRG 603 ==
LOC: EC 10:40 → SUPCPDRO 10:40 → 4MS4W 13:09 → OBSVTOIN 13:09
PROVIDERS: ADMIT Internal Medicine; ATTEND Internal Medicine
DX: L03.114 Cellulitis of left upper limb (principal); B02.8 Zoster with other complications; I10 Essential (primary) hypertension; G62.9 Polyneuropathy, unspecified; M50.221 Other cervical disc displacement at C4-C5 level; F17.200 Nicotine dependence, unspecified, uncomplicated; F43.10 Post-traumatic stress disorder, unspecified; I73.00 Raynaud's syndrome without gangrene; K21.9 Gastro-esophageal reflux disease without esophagitis; K58.9 Irritable bowel syndrome, unspecified; E55.9 Vitamin D deficiency, unspecified; F32.9 Major depressive disorder, single episode, unspecified; F41.9 Anxiety disorder, unspecified; G43.909 Migraine, unspecified, not intractable, without status migrainosus; G89.29 Other chronic pain; M19.90 Unspecified osteoarthritis, unspecified site; M50.321 Other cervical disc degeneration at C4-C5 level; Z79.899 Other long term (current) drug therapy; Z79.82 Long term (current) use of aspirin; Z88.1 Allergy status to other antibiotic agents; Z88.5 Allergy status to narcotic agent; Z88.8 Allergy status to other drugs, medicaments and biological substances
CPT/HCPCS: 36415; 80048; 80053; 80202; 80306; 81001; 82784; 82785; 83605; 85025; 85652; 86140; 86160; 86162; 87040; 87070; 87086; 87205; 87529; 94640; 99285

== ENCOUNTER 2017-03-20 08:55 | Emergency (ER) | payer OTHER ==
[2017-03-20 09:11] VITALS: TEMP 99
[2017-03-20] MEDS ORDERED: SODIUM CHLORIDE 0.9% 1,000 ML IV ONE (09:28)
[2017-03-20] MEDS ORDERED: KETOROLAC 30 MG/ML 1 ML VIAL IVP STA (09:29)
[2017-03-20] MEDS ORDERED: ONDANSETRON 4 MG/2 ML VIAL IVP STA (09:29)
--- NOTE | 2017-03-20 09:37 | ED ---
Abdominal Pain HPI - General Chief Complaint: Abdominal Pain Stated Complaint: Abd Pain, nauseated Time Seen by Provider: 03/20/17 09:15 Source: patient, RN notes reviewed Mode of arrival: ambulatory Limitations: no limitations - History of Present Illness Initial Comments: This is a 51-year-old female who presents with a chief complaint of chronic abdominal pain. Her pain is located in the right upper quadrant, right back, and right epigastric region. She has a history of pancreatitis, cholecystitis and other abdominal surgeries. The patient has been controlling her pain with Dronabinol, but had a recent insurance change where they will no longer cover the medication for her. She last took the medication 3 weeks ago, and began experiencing nausea and vomiting 6 days after discontinuing the Dronabinol. The patient reports taking Vicodin, which did not help with her pain. She states that she has been working with her Dronabinol prescriber, but has been unsuccessful in getting the medication covered. She was instructed to come to the ED if she was unable to tolerate the pain. - Related Data Home Medications Medication Instructions Recorded Confirmed Aspirin/Acetaminophen/Caffeine 2 tab PO DAILY PRN 06/20/16 03/20/17 [Excedrin Migraine Caplet] Dronabinol 2.5 mg PO BID 06/20/16 03/20/17 Gabapentin [Neurontin] 600 mg PO TID 06/20/16 03/20/17 Rizatriptan Benzoate [Rizatriptan] 10 mg PO DAILY PRN 06/20/16 03/20/17 diphenhydrAMINE [Benadryl] 25 mg PO HS 06/20/16 03/20/17 Albuterol Sulfate [Ventolin HFA] 2 puff INHALATION RT-Q6H PRN 03/20/17 03/20/17 Famotidine [Pepcid AC] 10 mg PO BID PRN 03/20/17 03/20/17 Nicotine 7Mg/24Hr Patch [Habitrol 1 patch TRANSDERM DAILY 03/20/17 03/20/17 7Mg/24Hr Patch] Omeprazole [PriLOSEC] 20 mg PO DAILY 03/20/17 03/20/17 Vitamin D3 200iu 200 unit PO DAILY 03/20/17 03/20/17 Previous Rx's Medication Instructions Recorded LORazepam [Ativan] 1 mg PO BID PRN #12 tab 12/15/13 Loratadine [Claritin] 10 mg PO DAILY #30 tab 05/17/14 Metoprolol Tartrate [Lopressor] 25 mg PO BID #14 tablet 05/17/14 Ondansetron Odt [Zofran ODT] 4 mg PO Q8HR PRN #15 tab 06/16/15 Hydrocodone/Acetaminophen [Canton 1 tab PO Q6HR PRN #10 tab 03/20/17 5-325] Allergies Allergy/AdvReac Type Severity Reaction Status Date / Time metoclopramide HCl Allergy Anaphylaxis Verified 03/20/17 09:44 [From Reglan] morphine Allergy Anaphylaxis Verified 03/20/17 09:44 prochlorperazine edisylate Allergy Anaphylaxis Verified 03/20/17 09:44 [From Compazine] prochlorperazine maleate Allergy Anaphylaxis Verified 03/20/17 09:44 [From Compazine] Tetracyclines Allergy Anaphylaxis Verified 03/20/17 09:44 levofloxacin [From Levaquin] AdvReac Nausea & Verified 03/20/17 09:44 Vomiting Review of Systems ROS Statement: Those systems with pertinent positive or pertinent negative responses have been documented in the HPI. ROS Other: All systems not noted in ROS Statement are negative. Past Medical History Past Medical History: Cancer, GERD/Reflux, Hypertension Additional Past Medical History / Comment(s): pancreatitis, IBS, neuropathy, Raynauds, back PAIN, migraines, herniated disks C4 and C5; Cervical cancer, herpetic filemon History of Any Multi-Drug Resistant Organisms: None Reported Past Surgical History: Cholecystectomy, Tonsillectomy Additional Past Surgical History / Comment(s): neuroma, cervical coninition, permanent stitches in common bile duct and pancreatic, and sphincter of Oddi duct Past Anesthesia/Blood Transfusion Reactions: No Reported Reaction Past Psychological History: Anxiety, Depression, PTSD Smoking Status: Current every day smoker Past Alcohol Use History: None Reported Past Drug Use History: None Reported General Exam Limitations: no limitations General appearance: alert, in no apparent distress Head exam: Present: atraumatic, normocephalic, normal inspection Eye exam: Present: normal appearance, PERRL, EOMI. Absent: scleral icterus, conjunctival injection, periorbital swelling Respiratory exam: Present: normal lung sounds bilaterally. Absent: respiratory distress, wheezes, rales, rhonchi, stridor Cardiovascular Exam: Present: regular rate, normal rhythm, normal heart sounds. Absent: systolic murmur, diastolic murmur, rubs, gallop, clicks GI/Abdominal exam: Present: soft, tenderness (generalized abdominal tenderness) , normal bowel sounds. Absent: distended, guarding, rebound, rigid, organomegaly, mass Back exam: Present: normal inspection, tenderness (mild tenderness to palpation of the right medial mid-back) Neurological exam: Present: alert, oriented X3, CN II-XII intact Psychiatric exam: Present: normal affect, normal mood Skin exam: Present: warm, dry, intact, normal color. Absent: rash Course Vital Signs 03/20/17 09:07 Temperature 99.0 F Pulse Rate 96 Respiratory 18 Rate Blood Pressure 159/82 O2 Sat by Pulse 96 Oximetry Medical Decision Making - Medical Decision Making 51-year-old female presented from for chronic abdominal issues pancreatitis. Patient's labwork is unremarkable vitals are stable. I did explain that she needs a follow-up with primary care physician for pain medication and figure out what their prescribers secondary to her insurance not covering her cannabis. Patient will be discharged at this time return parameters were discussed. - Lab Data Result diagrams: 03/20/17 09:35 03/20/17 09:35 Lab Results 03/20/17 03/20/17 03/20/17 Range/Units 09:35 09:35 10:00 WBC 7.2 (3.8-10.6) k/uL RBC 4.21 (3.80-5.40) m/uL Hgb 13.7 (11.4-16.0) gm/dL Hct 39.4 (34.0-46.0) % MCV 93.7 (80.0-100.0) fL MCH 32.6 (25.0-35.0) pg MCHC 34.8 (31.0-37.0) g/dL RDW 12.2 (11.5-15.5) % Plt Count 267 (150-450) k/uL Neutrophils % 60 % Lymphocytes % 31 % Monocytes % 6 % Eosinophils % 2 % Basophils % 1 % Neutrophils # 4.3 (1.3-7.7) k/uL Lymphocytes # 2.3 (1.0-4.8) k/uL Monocytes # 0.4 (0-1.0) k/uL Eosinophils # 0.1 (0-0.7) k/uL Basophils # 0.0 (0-0.2) k/uL Sodium 143 (137-145) mmol/L Potassium 4.1 (3.5-5.1) mmol/L Chloride 105 (98-107) mmol/L Carbon Dioxide 26 (22-30) mmol/L Anion Gap 12 mmol/L BUN 15 (7-17) mg/dL Creatinine 0.70 (0.52-1.04) mg/dL Est GFR (MDRD) Af Amer >60 (>60 ml/min/1.73 sqM) Est GFR (MDRD) Non-Af >60 (>60 ml/min/1.73 sqM) Glucose 103 H (74-99) mg/dL Calcium 9.6 (8.4-10.2) mg/dL Total Bilirubin 0.3 (0.2-1.3) mg/dL AST 22 (14-36) U/L ALT 22 (9-52) U/L Alkaline Phosphatase 46 (38-126) U/L Total Protein 7.4 (6.3-8.2) g/dL Albumin 4.5 (3.5-5.0) g/dL Amylase 59 (30-110) U/L Lipase 157 (23-300) U/L Urine Color Yellow Urine Appearance Slightly Cloudy H (Clear) Urine pH 6.0 (5.0-8.0) Ur Specific Kimper 1.030 (1.001-1.035) Urine Protein 1+ (Negative) Urine Glucose (UA) Negative (Negative) Urine Ketones 1+ (Negative) Urine Blood Negative (Negative) Urine Nitrite Negative (Negative) Urine Bilirubin 1+ H (Negative) Urine Urobilinogen 2.0 (<2.0) mg/dL Ur Leukocyte Esterase Negative (Negative) Urine WBC 1 (0-5) /hpf Ur Squamous Epith Cells 6 H (0-4) /hpf Calcium Oxalate Crystal Rare H (None) /hpf Urine Mucus Many H (None) /hpf Disposition Clinical Impression: Chronic abdominal pain Disposition: HOME SELF-CARE Condition: Stable Instructions: Abdominal Pain (ED) Additional Instructions: Please return to the Emergency Department if symptoms worsen or any other concerns. Prescriptions: Hydrocodone/Acetaminophen [Canton 5-325] 1 tab PO Q6HR PRN #10 tab PRN Reason: Pain Referrals: Ridge Finch III, MD [Primary Care Provider] - 1-2 days Time of Disposition: 11:16
[2017-03-20 10:00] LABS: Basophils % (A) 1 %; Eosinophils # (A) 0.1 k/uL (0-0.7); Eosinophils % (A) 2 %; HCT 39.4 % (34.0-46.0); HGB 13.7 gm/dL (11.4-16.0); Lymphocytes # (A) 2.3 k/uL (1.0-4.8); Lymphocytes % (A) 31 %; MCH 32.6 pg (25.0-35.0); MCHC 34.8 g/dL (31.0-37.0); MCV 93.7 fL (80.0-100.0); Mean Platelet Volume 7.6; Monocytes # (A) 0.4 k/uL (0-1.0); Monocytes % (A) 6 %; Neutrophils # (A) 4.3 k/uL (1.3-7.7); Neutrophils % (A) 60 %; Platelet Count 267 k/uL (150-450); RBC 4.21 m/uL (3.80-5.40); RDW 12.2 % (11.5-15.5); WBC 7.2 k/uL (3.8-10.6)
[2017-03-20 10:11] LABS: ALT 22 U/L (9-52); AST 22 U/L (14-36); Albumin 4.5 g/dL (3.5-5.0); Alkaline Phosphatase 46 U/L (38-126); Amylase 59 U/L (30-110); Anion Gap 12 mmol/L; Blood Urea Nitrogen 15 mg/dL (7-17); Calcium 9.6 mg/dL (8.4-10.2); Carbon Dioxide 26 mmol/L (22-30); Chloride 105 mmol/L (98-107); Glucose 103 mg/dL (74-99); Lipase 157 U/L (23-300); Potassium 4.1 mmol/L (3.5-5.1); Sodium 143 mmol/L (137-145); Total Bilirubin 0.3 mg/dL (0.2-1.3); Total Protein 7.4 g/dL (6.3-8.2)
[2017-03-20 10:25] LABS: Calcium Oxalate Crystals,Urine Rare /hpf; Mucus,Urine Many /hpf; Squamous Epithelial Cell,Urine 6 /hpf (0-4); WBC,Urine 1 /hpf (0-5)
[2017-03-20 10:29] LABS: Appearance,Urine Slightly Cloudy (Clear); Color,Urine Yellow; Protein,Urine 1+ (Negative)
[2017-03-20 10:30] LABS: Bilirubin,Urine 1+ (Negative); Blood,Urine Negative (Negative); Glucose,Urine (UA) Negative (Negative); Ketones,Urine 1+ (Negative); Leukocyte Esterase,Urine Negative (Negative); Nitrite,Urine Negative (Negative)
[2017-03-20] MEDS ORDERED: HYDROmorphone 0.5 MG/0.5 ML SYRINGE IVP STA (10:40)
[2017-03-20 11:29] VITALS: BP 129/78; PULSE 73; RESP 16
[2017-03-21 14:12] LABS: Bilirubin Confirmation, Urine QNS (Negative)
== END 2017-03-20 11:36 | disposition home or self-care (01) ==
LOC: EC 08:55
DX: G89.29 Other chronic pain (principal); R10.13 Epigastric pain; R10.11 Right upper quadrant pain; K21.9 Gastro-esophageal reflux disease without esophagitis; F17.200 Nicotine dependence, unspecified, uncomplicated; Z85.41 Personal history of malignant neoplasm of cervix uteri; Z90.49 Acquired absence of other specified parts of digestive tract; Z79.899 Other long term (current) drug therapy; Z88.8 Allergy status to other drugs, medicaments and biological substances; Z88.5 Allergy status to narcotic agent; Z88.1 Allergy status to other antibiotic agents
CPT/HCPCS: 36415; 80053; 82150; 83690; 85025; 81001; 99284; 96374; 96375 ×2; 96361 ×2; J2405; J1885; J1170

== ENCOUNTER → 2018-01-06 | Outpatient (CLI) | payer OTHER ==
--- NOTE | 2018-01-06 11:57 | MM ---
Reason for exam: clinical finding. History: Patient had first child at age 35. Family history of breast cancer in sister at age 47, breast cancer in maternal aunt at age 70, and breast cancer in maternal grandmother at age 50. Took hormonal contraceptives for 3 years beginning at age 18. Indicated problem(s): lump or thickening and pain in the right breast. Physical Findings: Nurse Summary: 1cm nodule in the right breast at 11 o'clock (nurse cw). [facility] Diagnostic Mammo w CAD MARSHA Bilateral CC and MLO view(s) were taken. No prior studies available for comparison. The breast tissue is extremely dense which could obscure a lesion on mammography. Finding: There is a complex coarse calcifications in the 6 o'clock lower quadrant, middle position of the left breast, 3cm from the nipple. Subtle distortion right MLO view, not on ML. These results were verbally communicated with the patient and result sheet given to the patient on 01/06/18. ASSESSMENT: Benign, BI-RAD 2 RECOMMENDATION: Routine screening mammogram of both breasts in 1 year. Manage on a clinical basis with regard to palpable.
--- NOTE | 2018-01-06 11:59 | USB ---
Reason for exam: clinical finding. History: Patient had first child at age 35. Family history of breast cancer in sister at age 47, breast cancer in maternal aunt at age 70, and breast cancer in maternal grandmother at age 50. Took hormonal contraceptives for 3 years beginning at age 18. US Breast BILAT Right complete breast ultrasound includes all four quadrants, the retroareolar region and axilla. Finding demonstrates a 0.9 x 1.0 x 0.7cm oval, cystic lesion at 10 o'clock BB, a 0.8 x 1.1 x 0.4cm oval, cystic lesion at 10 o'clock and a 0.5 x 0.6 x 0.4cm oval, cystic lesion at 11 o'clock. Corresponds to palpable. Left complete breast ultrasound includes all four quadrants, the retroareolar region and axilla. Finding demonstrates a 0.7 x 0.4 x 0.7cm node at 3 o'clock, 6cm from nipple. These results were verbally communicated with the patient and result sheet given to the patient on 01/06/18. ASSESSMENT: Benign, BI-RAD 2 RECOMMENDATION: Routine screening mammogram of both breasts in 1 year. Manage on a clinical basis with regard to palpable.
== END | disposition home or self-care (01) ==
LOC: RADMAMWWP 08:51
PROVIDERS: ATTEND Family Medicine
DX: N63.10 Unspecified lump in the right breast, unspecified quadrant (principal)
CPT/HCPCS: 77066

== ENCOUNTER 2018-04-16 15:25 | Emergency (ER) | payer OTHER ==
[2018-04-16 15:40] VITALS: RESP 18; TEMP 98.3
[2018-04-16] MEDS ORDERED: PANTOPRAZOLE 40 MG/10 ML VIAL IVP STA (15:52)
[2018-04-16] MEDS ORDERED: ONDANSETRON 4 MG/2 ML VIAL IVP STA (15:52)
[2018-04-16] MEDS ORDERED: SODIUM CHLORIDE 0.9% 1,000 ML IV STA (15:52)
--- NOTE | 2018-04-16 15:56 | ED ---
General Adult HPI - General Chief complaint: Abdominal Pain Stated complaint: RT FLANK PAIN Time Seen by Provider: 04/16/18 15:25 Source: patient, EMS, RN notes reviewed Mode of arrival: EMS Limitations: no limitations - History of Present Illness Initial comments: This is a 52-year-old female presents emergency Department with past medical history significant pancreatitis. Patient comes in today stating she has the same symptom she has no chest pain or tightness. Patient states she has some epigastric right upper quadrant abdominal pain. Patient denies any radiation today. Patient states she's been vomiting since yesterday and cannot keep any thing down. Patient denies any fever or chills. Patient denies any chest pain patient denies any palpitations. Patient denies any lightheadedness dizziness or near syncopal episode. Patient states she does have some burning with urination and some urinary frequency she thinks she has urinary tract infection. Patient denies any swelling to the legs. - Related Data Home Medications Medication Instructions Recorded Confirmed Gabapentin [Neurontin] 600 mg PO QID 06/20/16 04/16/18 Sucralfate [Carafate] 1 gm PO BID 04/16/18 04/16/18 tiZANidine HCL [Zanaflex] 4 mg PO BID 04/16/18 04/16/18 Previous Rx's Medication Instructions Recorded LORazepam [Ativan] 1 mg PO BID PRN #12 tab 12/15/13 Loratadine [Claritin] 10 mg PO DAILY #30 tab 05/17/14 Metoprolol Tartrate [Lopressor] 25 mg PO BID #14 tablet 05/17/14 Hydrocodone/Acetaminophen [Hardin 1 tab PO Q6HR PRN #10 tab 03/20/17 5-325] Sulfamethox-Tmp 800-160Mg [Bactrim 1 each PO Q12HR #14 tab 04/16/18 DS 800-160 mg] Allergies Allergy/AdvReac Type Severity Reaction Status Date / Time metoclopramide HCl Allergy Anaphylaxis Verified 04/16/18 16:05 [From Reglan] morphine Allergy Anaphylaxis Verified 04/16/18 16:05 prochlorperazine edisylate Allergy Anaphylaxis Verified 04/16/18 16:05 [From Compazine] prochlorperazine maleate Allergy Anaphylaxis Verified 04/16/18 16:05 [From Compazine] Tetracyclines Allergy Anaphylaxis Verified 04/16/18 16:05 levofloxacin [From Levaquin] AdvReac Nausea & Verified 04/16/18 16:05 Vomiting Review of Systems ROS Statement: Those systems with pertinent positive or pertinent negative responses have been documented in the HPI. ROS Other: All systems not noted in ROS Statement are negative. Past Medical History Past Medical History: Cancer, GERD/Reflux, Hypertension Additional Past Medical History / Comment(s): pancreatitis, IBS, neuropathy, Raynauds, back PAIN, migraines, herniated disks C4 and C5; Cervical cancer, herpetic filemon History of Any Multi-Drug Resistant Organisms: None Reported Past Surgical History: Cholecystectomy, Tonsillectomy Additional Past Surgical History / Comment(s): neuroma, cervical coninition, permanent stitches in common bile duct and pancreatic, and sphincter of Oddi duct Past Anesthesia/Blood Transfusion Reactions: No Reported Reaction Past Psychological History: Anxiety, Depression, PTSD Smoking Status: Current every day smoker Past Alcohol Use History: None Reported Past Drug Use History: None Reported General Exam - General Exam Comments Initial Comments: GENERAL: Patient is well-developed and well-nourished. Patient is nontoxic and well- hydrated and is in mild distress. ENT: Neck is soft and supple. No significant lymphadenopathy is noted. Oropharynx is clear. Moist mucous membranes. Neck has full range of motion without eliciting any pain. EYES: The sclera were anicteric and conjunctiva were pink and moist. Extraocular movements were intact and pupils were equal round and reactive to light. Eyelids were unremarkable. PULMONARY: Unlabored respirations. Good breath sounds bilaterally. No audible rales rhonchi or wheezing was noted. CARDIOVASCULAR: There is a regular rate and rhythm without any murmurs gallops or rubs. ABDOMEN: Mild right upper quadrant and epigastric tenderness no rebound or guarding. SKIN: Skin is clear with no lesions or rashes and otherwise unremarkable. NEUROLOGIC: Patient is alert and oriented x3. Cranial nerves II through XII are grossly intact. Motor and sensory are also intact. Normal speech, volume and content. Symmetrical smile. MUSCULOSKELETAL: Normal extremities with adequate strength and full range of motion. No lower extremity swelling or edema. No calf tenderness. LYMPHATICS: No significant lymphadenopathy is noted PSYCHIATRIC: Normal psychiatric evaluation. Limitations: no limitations Course Vital Signs 04/16/18 04/16/18 15:36 16:42 Temperature 98.3 F Pulse Rate 67 58 L Respiratory 18 18 Rate Blood Pressure 130/96 127/72 O2 Sat by Pulse 95 100 Oximetry Medical Decision Making - Medical Decision Making Computed tomography scan shows no acute abnormality. Patient did not vomit while in the emergency department. Patient was aware that she has hematuria at this point will follow-up. I will treat the patient with antibiotics until the patient follows up to find out what her culture results are. - Lab Data Result diagrams: 04/16/18 16:15 04/16/18 16:15 Lab Results 04/16/18 04/16/18 04/16/18 Range/Units 16:15 16:15 16:36 WBC 7.5 (3.8-10.6) k/uL RBC 3.70 L (3.80-5.40) m/uL Hgb 12.8 (11.4-16.0) gm/dL Hct 38.1 (34.0-46.0) % MCV 103.0 H (80.0-100.0) fL MCH 34.6 (25.0-35.0) pg MCHC 33.6 (31.0-37.0) g/dL RDW 13.6 (11.5-15.5) % Plt Count 299 (150-450) k/uL Neutrophils % 71 % Lymphocytes % 24 % Monocytes % 4 % Eosinophils % 0 % Basophils % 0 % Neutrophils # 5.3 (1.3-7.7) k/uL Lymphocytes # 1.8 (1.0-4.8) k/uL Monocytes # 0.3 (0-1.0) k/uL Eosinophils # 0.0 (0-0.7) k/uL Basophils # 0.0 (0-0.2) k/uL Macrocytosis Slight Sodium 139 (137-145) mmol/L Potassium 3.8 (3.5-5.1) mmol/L Chloride 107 (98-107) mmol/L Carbon Dioxide 26 (22-30) mmol/L Anion Gap 6 mmol/L BUN 12 (7-17) mg/dL Creatinine 0.52 (0.52-1.04) mg/dL Est GFR (CKD-EPI)AfAm >90 (>60 ml/min/1.73 sqM) Est GFR (CKD-EPI)NonAf >90 (>60 ml/min/1.73 sqM) Glucose 94 (74-99) mg/dL Calcium 9.5 (8.4-10.2) mg/dL Total Bilirubin 0.5 (0.2-1.3) mg/dL AST 24 (14-36) U/L ALT 38 (9-52) U/L Alkaline Phosphatase 64 (38-126) U/L Total Protein 7.2 (6.3-8.2) g/dL Albumin 4.4 (3.5-5.0) g/dL Amylase 49 (30-110) U/L Lipase 62 (23-300) U/L Urine Color Dark Brown Urine Appearance Clear (Clear) Urine pH 6.0 (5.0-8.0) Ur Specific [place] 1.016 (1.001-1.035) Urine Protein Trace H (Negative) Urine Glucose (UA) Negative (Negative) Urine Ketones Negative (Negative) Urine Blood Moderate H (Negative) Urine Nitrite Positive H (Negative) Urine Bilirubin 1+ H (Negative) Urine Urobilinogen 4.0 (<2.0) mg/dL Ur Leukocyte Esterase Negative (Negative) Urine RBC 53 H (0-5) /hpf Urine WBC 1 (0-5) /hpf Ur Squamous Epith Cells 2 (0-4) /hpf Urine Bacteria Rare H (None) /hpf Urine Mucus Few H (None) /hpf Disposition Clinical Impression: Abdominal pain, Hematuria Disposition: HOME SELF-CARE Condition: Good Instructions (If sedation given, give patient instructions): Hematuria (ED), Abdominal Pain (ED) Prescriptions: Sulfamethox-Tmp 800-160Mg [Bactrim DS 800-160 mg] 1 each PO Q12HR #14 tab Is patient prescribed a controlled substance at d/c from ED?: No Referrals: Caroline Diamond MD [Primary Care Provider] - 1-2 days Time of Disposition: 18:06
[2018-04-16 16:20] LABS: Basophils % (A) 0 %; Eosinophils % (A) 0 %; HCT 38.1 % (34.0-46.0); HGB 12.8 gm/dL (11.4-16.0); Lymphocytes # (A) 1.8 k/uL (1.0-4.8); Lymphocytes % (A) 24 %; MCH 34.6 pg (25.0-35.0); MCHC 33.6 g/dL (31.0-37.0); Macrocytosis Slight; Mean Platelet Volume 7.2; Monocytes # (A) 0.3 k/uL (0-1.0); Monocytes % (A) 4 %; Neutrophils # (A) 5.3 k/uL (1.3-7.7); Neutrophils % (A) 71 %; Platelet Count 299 k/uL (150-450); RDW 13.6 % (11.5-15.5); WBC 7.5 k/uL (3.8-10.6)
--- NOTE | 2018-04-16 16:25 | XR ---
EXAMINATION TYPE: XR KUB DATE OF EXAM: 04/16/2018 CLINICAL DATA: 52 year-old female with right flank and abdominal pain, [facility] COMPARISON: 06/16/2015 FINDINGS: Lung bases are clear. No evidence for free intraperitoneal air. No dilated small bowel. Scattered colonic air is present. Some colonic air-fluid levels in the pelvis . Stable curvilinear calcification projecting over the right iliac bone. Moderate progressive degenerat caron change right hip and at least mild at the left hip. Mild levoconvex scoliosis. IMPRESSION: Some colonic air-fluid levels in the pelvis suggests ileus or enteritis. Overall nonobstructive bowel gas pattern. No free air.
[2018-04-16 16:28] LABS: Potassium 3.8 mmol/L (3.5-5.1)
[2018-04-16 16:29] LABS: ALT 38 U/L (9-52); AST 24 U/L (14-36); Albumin 4.4 g/dL (3.5-5.0); Alkaline Phosphatase 64 U/L (38-126); Amylase 49 U/L (30-110); Anion Gap 6 mmol/L; Blood Urea Nitrogen 12 mg/dL (7-17); Calcium 9.5 mg/dL (8.4-10.2); Carbon Dioxide 26 mmol/L (22-30); Chloride 107 mmol/L (98-107); Glucose 94 mg/dL (74-99); Lipase 62 U/L (23-300); Sodium 139 mmol/L (137-145); Total Bilirubin 0.5 mg/dL (0.2-1.3); Total Protein 7.2 g/dL (6.3-8.2)
[2018-04-16 16:50] LABS: Appearance,Urine Clear (Clear); Bacteria,Urine Rare /hpf; Bilirubin,Urine 1+ (Negative); Blood,Urine Moderate (Negative); Color,Urine Dark Brown; Glucose,Urine (UA) Negative (Negative); Ketones,Urine Negative (Negative); Leukocyte Esterase,Urine Negative (Negative); Mucus,Urine Few /hpf; Nitrite,Urine Positive (Negative); Protein,Urine Trace (Negative); RBC,Urine 53 /hpf (0-5); Specific Gravity,Urine 1.016 (1.001-1.035); Squamous Epithelial Cell,Urine 2 /hpf (0-4); WBC,Urine 1 /hpf (0-5)
[2018-04-16] MEDS ORDERED: HYDROmorphone 1 MG/ML 1 ML SYRINGE IVP STA (16:51)
[2018-04-16] MEDS ORDERED: cefTRIAXone IN SWFI 1,000 MG/10 ML SYRINGE IVP STA (17:05)
--- NOTE | 2018-04-16 17:40 | CT ---
EXAMINATION TYPE: CT abdomen pelvis w con DATE OF EXAM: 04/16/2018 COMPARISON: 06/26/2013 HISTORY: Generalized pain with nasuea CT DLP: 372 mGycm Automated exposure control for dose reduction was used. TECHNIQUE: Helical acquisition of images was performed from the lung bases through the pelvis. CONTRAST: Performed without Oral Contrast and with IV Contrast, patient injected with 100 mL of Isovue 300. FINDINGS: Lung bases are clear of consolidation. There is no pleural effusion. Heart size is normal. There is n o pericardial effusion. There are small amount of air in the biliary tree. There is cholecystectomy. Spleen appears normal. There is no evidence of pancreatic mass. The bile ducts are not dilated. There is no adrenal mass. Kidneys have normal size and contour. There is satisfactory contrast opacif ication. There is no hydronephrosis. Ureters are not dilated. There is no retroperitoneal adenopathy. Uterus is anteverted. Bladder distends smoothly. There is no free fluid in the pelvis. There is no in guinal hernia. The appendix is partly filled with air and appears normal. There is no evidence of a p elvic mass. There is no ascites. There is no evidence of free air. IMPRESSION: AIR IN THE BILIARY TREE UNCHANGED COMPARED TO OLD EXAM. NO DILATED DUCTS. NORMAL APPENDIX.
[2018-04-16 18:29] VITALS: BP 121/70; PULSE 78
== END 2018-04-16 18:29 | disposition home or self-care (01) ==
LOC: EC 15:25
DX: R10.11 Right upper quadrant pain (principal); R10.13 Epigastric pain; R31.9 Hematuria, unspecified; G62.9 Polyneuropathy, unspecified; K21.9 Gastro-esophageal reflux disease without esophagitis; F41.9 Anxiety disorder, unspecified; F17.200 Nicotine dependence, unspecified, uncomplicated; Z79.899 Other long term (current) drug therapy; Z88.5 Allergy status to narcotic agent; Z88.1 Allergy status to other antibiotic agents; Z88.8 Allergy status to other drugs, medicaments and biological substances; Z90.49 Acquired absence of other specified parts of digestive tract; Z85.41 Personal history of malignant neoplasm of cervix uteri
CPT/HCPCS: 36415; 80053; 82150; 83690; 85025; 81001; 87086; 74018; 74177; 99285; 96374; 96375 ×3; 96361 ×2; J2405; J0696; J1170; C9113; Q9967

== ENCOUNTER 2018-05-12 07:31 | Emergency (ER) | payer OTHER ==
[2018-05-12] MEDS ORDERED: SODIUM CHLORIDE 0.9% 2,000 ML IV STA (07:42)
[2018-05-12] MEDS ORDERED: diphenhydrAMINE 50 MG/ML 1 ML VIAL IVP STA (07:51)
[2018-05-12] MEDS ORDERED: ONDANSETRON 4 MG/2 ML VIAL IVP STA (07:51)
[2018-05-12] MEDS ORDERED: HYDROmorphone 1 MG/ML 1 ML SYRINGE IVP STA (07:51)
[2018-05-12 08:13] LABS: Basophils % (A) 0 %; Eosinophils # (A) 0.1 k/uL (0-0.7); Eosinophils % (A) 1 %; HCT 40.4 % (34.0-46.0); HGB 13.7 gm/dL (11.4-16.0); Lymphocytes # (A) 2.2 k/uL (1.0-4.8); Lymphocytes % (A) 17 %; MCH 34.4 pg (25.0-35.0); MCV 100.9 fL (80.0-100.0); Macrocytosis Slight; Mean Platelet Volume 8.3; Monocytes # (A) 0.5 k/uL (0-1.0); Monocytes % (A) 4 %; Neutrophils # (A) 9.9 k/uL (1.3-7.7); Neutrophils % (A) 77 %; Platelet Count 346 k/uL (150-450); WBC 12.8 k/uL (3.8-10.6)
--- NOTE | 2018-05-12 08:22 | ED ---
Abdominal Pain HPI - General Chief Complaint: Abdominal Pain Stated Complaint: Nausea/Vomiting Time Seen by Provider: 05/12/18 07:42 Source: patient, EMS, RN notes reviewed Mode of arrival: EMS Limitations: no limitations - History of Present Illness Initial Comments: This a 52-year-old female presents emergency Department with chief complaint of abdominal pain. Patient states severe pain in her midabdomen slightly radiates. Patient states she does have history of chronic pancreatitis. Patient states she's also had multiple surgeries and abdomen with prior obstruction. Patient reports no fever or chills no chest pain or shortness breath. Patient has no dysuria no hematuria slight diarrhea no melena. She is a. Patient states she cannot keep anything down. This was a sudden onset of pain this morning. - Related Data Home Medications Medication Instructions Recorded Confirmed Gabapentin [Neurontin] 600 mg PO QID 06/20/16 05/12/18 Sucralfate [Carafate] 1 gm PO BID 04/16/18 05/12/18 tiZANidine HCL [Zanaflex] 4 mg PO BID 04/16/18 05/12/18 Aspirin/Acetaminophen/Caffeine 1 tab PO Q12H PRN 05/12/18 05/12/18 [Excedrin Migraine Caplet] Cetirizine HCl [Zyrtec] 10 mg PO DAILY 05/12/18 05/12/18 Cholecalciferol [Vitamin D3] 3,000 unit PO DAILY 05/12/18 05/12/18 Ensure 1 can PO DAILY 05/12/18 05/12/18 Esomeprazole Magnesium [NexIUM] 20 mg PO DAILY 05/12/18 05/12/18 Famotidine [Pepcid] 20 mg PO DAILY 05/12/18 05/12/18 Hyoscyamine Sulfate [Hyoscyamine 0.125 mg SL DAILY PRN 05/12/18 05/12/18 Sulfate SL] LORazepam [Ativan] 1 mg PO HS PRN 05/12/18 05/12/18 Multivitamins, Thera [Multivitamin 1 tab PO DAILY 05/12/18 05/12/18 (formulary)] Nicotine 7Mg/24Hr Patch [Habitrol 1 patch TRANSDERM DAILY 05/12/18 05/12/18 7Mg/24Hr Patch] Ondansetron [Zofran] 4 mg PO Q12HR PRN 05/12/18 05/12/18 Rizatriptan Benzoate [Maxalt PAINTER PLATE] 10 mg PO DAILY PRN 05/12/18 05/12/18 valACYclovir HCL [Valtrex] 1,000 mg PO DAILY PRN 05/12/18 05/12/18 Previous Rx's Medication Instructions Recorded Loratadine [Claritin] 10 mg PO DAILY #30 tab 05/17/14 Metoprolol Tartrate [Lopressor] 25 mg PO BID #14 tablet 05/17/14 HYDROcodone/APAP 7.5-325MG [Sheldon 1 tab PO Q6HR PRN 3 Days #12 tab 05/12/18 7.5-325] Ondansetron Odt [Zofran Odt] 4 mg PO Q8HR PRN #10 tab 05/12/18 Allergies Allergy/AdvReac Type Severity Reaction Status Date / Time metoclopramide HCl Allergy Anaphylaxis Verified 05/12/18 08:19 [From Reglan] morphine Allergy Anaphylaxis Verified 05/12/18 08:19 prochlorperazine edisylate Allergy Anaphylaxis Verified 05/12/18 08:19 [From Compazine] prochlorperazine maleate Allergy Anaphylaxis Verified 05/12/18 08:19 [From Compazine] Tetracyclines Allergy Anaphylaxis Verified 05/12/18 08:19 levofloxacin [From Levaquin] AdvReac Nausea & Verified 05/12/18 08:19 Vomiting Review of Systems ROS Statement: Those systems with pertinent positive or pertinent negative responses have been documented in the HPI. ROS Other: All systems not noted in ROS Statement are negative. Past Medical History Past Medical History: Cancer, GERD/Reflux, Hypertension Additional Past Medical History / Comment(s): pancreatitis, IBS, neuropathy, Raynauds, back PAIN, migraines, herniated disks C4 and C5; Cervical cancer (in remission), herpetic filemon History of Any Multi-Drug Resistant Organisms: None Reported Past Surgical History: Cholecystectomy, Tonsillectomy Additional Past Surgical History / Comment(s): neuroma, cervical coninition, permanent stitches in common bile duct and pancreatic, and sphincter of Oddi duct Past Anesthesia/Blood Transfusion Reactions: No Reported Reaction Past Psychological History: Anxiety, Depression, PTSD Smoking Status: Current every day smoker Past Alcohol Use History: None Reported Past Drug Use History: Marijuana General Exam Limitations: no limitations General appearance: alert, in no apparent distress Head exam: Present: atraumatic, normocephalic, normal inspection Eye exam: Present: normal appearance, PERRL, EOMI. Absent: scleral icterus, conjunctival injection, periorbital swelling ENT exam: Present: normal exam, mucous membranes moist Neck exam: Present: normal inspection. Absent: tenderness, meningismus, lymphadenopathy Respiratory exam: Present: normal lung sounds bilaterally. Absent: respiratory distress, wheezes, rales, rhonchi, stridor Cardiovascular Exam: Present: regular rate, normal rhythm, normal heart sounds. Absent: systolic murmur, diastolic murmur, rubs, gallop, clicks GI/Abdominal exam: Present: soft, tenderness, normal bowel sounds. Absent: distended, guarding, rebound, rigid Neurological exam: Present: alert, oriented X3, CN II-XII intact Skin exam: Present: warm, dry, intact, normal color. Absent: rash Course Vital Signs 05/12/18 05/12/18 07:35 11:27 Temperature 97.3 F L 97.6 F Pulse Rate 58 L 64 Respiratory 26 H 18 Rate Blood Pressure 161/119 97/77 O2 Sat by Pulse 100 100 Oximetry Medical Decision Making - Medical Decision Making 52-year-old female presented from for abdominal pain left flank pain. Patient has obstructive uropathy. Patient has no evidence of stone. Case discussed with Dr. Ratliff at urology patient was seen in office this week. Patient we discharged with pain medication, antiemetics. - Lab Data Result diagrams: 05/12/18 07:45 05/12/18 07:45 Lab Results 05/12/18 05/12/18 05/12/18 Range/Units 07:45 07:45 07:45 WBC 12.8 H (3.8-10.6) k/uL RBC 4.00 (3.80-5.40) m/uL Hgb 13.7 (11.4-16.0) gm/dL Hct 40.4 (34.0-46.0) % MCV 100.9 H (80.0-100.0) fL MCH 34.4 (25.0-35.0) pg MCHC 34.0 (31.0-37.0) g/dL RDW 14.0 (11.5-15.5) % Plt Count 346 (150-450) k/uL Neutrophils % 77 % Lymphocytes % 17 % Monocytes % 4 % Eosinophils % 1 % Basophils % 0 % Neutrophils # 9.9 H (1.3-7.7) k/uL Lymphocytes # 2.2 (1.0-4.8) k/uL Monocytes # 0.5 (0-1.0) k/uL Eosinophils # 0.1 (0-0.7) k/uL Basophils # 0.0 (0-0.2) k/uL Macrocytosis Slight Sodium 141 (137-145) mmol/L Potassium 3.5 (3.5-5.1) mmol/L Chloride 107 (98-107) mmol/L Carbon Dioxide 23 (22-30) mmol/L Anion Gap 11 mmol/L BUN 17 (7-17) mg/dL Creatinine 0.61 (0.52-1.04) mg/dL Est GFR (CKD-EPI)AfAm >90 (>60 ml/min/1.73 sqM) Est GFR (CKD-EPI)NonAf >90 (>60 ml/min/1.73 sqM) Glucose 106 H (74-99) mg/dL Calcium 9.7 (8.4-10.2) mg/dL Total Bilirubin 0.7 (0.2-1.3) mg/dL AST 25 (14-36) U/L ALT 28 (9-52) U/L Alkaline Phosphatase 70 (38-126) U/L Troponin I <0.012 (0.000-0.034) ng/mL Total Protein 7.6 (6.3-8.2) g/dL Albumin 4.7 (3.5-5.0) g/dL Amylase 79 (30-110) U/L Lipase 113 (23-300) U/L Urine Color Urine Appearance (Clear) Urine pH (5.0-8.0) Ur Specific [place] (1.001-1.035) Urine Protein (Negative) Urine Glucose (UA) (Negative) Urine Ketones (Negative) Urine Blood (Negative) Urine Nitrite (Negative) Urine Bilirubin (Negative) Urine Urobilinogen (<2.0) mg/dL Ur Leukocyte Esterase (Negative) Urine RBC (0-5) /hpf Urine WBC (0-5) /hpf Ur Squamous Epith Cells (0-4) /hpf Urine Mucus (None) /hpf 05/12/18 Range/Units 09:05 WBC (3.8-10.6) k/uL RBC (3.80-5.40) m/uL Hgb (11.4-16.0) gm/dL Hct (34.0-46.0) % MCV (80.0-100.0) fL MCH (25.0-35.0) pg MCHC (31.0-37.0) g/dL RDW (11.5-15.5) % Plt Count (150-450) k/uL Neutrophils % % Lymphocytes % % Monocytes % % Eosinophils % % Basophils % % Neutrophils # (1.3-7.7) k/uL Lymphocytes # (1.0-4.8) k/uL Monocytes # (0-1.0) k/uL Eosinophils # (0-0.7) k/uL Basophils # (0-0.2) k/uL Macrocytosis Sodium (137-145) mmol/L Potassium (3.5-5.1) mmol/L Chloride (98-107) mmol/L Carbon Dioxide (22-30) mmol/L Anion Gap mmol/L BUN (7-17) mg/dL Creatinine (0.52-1.04) mg/dL Est GFR (CKD-EPI)AfAm (>60 ml/min/1.73 sqM) Est GFR (CKD-EPI)NonAf (>60 ml/min/1.73 sqM) Glucose (74-99) mg/dL Calcium (8.4-10.2) mg/dL Total Bilirubin (0.2-1.3) mg/dL AST (14-36) U/L ALT (9-52) U/L Alkaline Phosphatase (38-126) U/L Troponin I (0.000-0.034) ng/mL Total Protein (6.3-8.2) g/dL Albumin (3.5-5.0) g/dL Amylase (30-110) U/L Lipase (23-300) U/L Urine Color Light Yellow Urine Appearance Clear (Clear) Urine pH 7.0 (5.0-8.0) Ur Specific [place] 1.010 (1.001-1.035) Urine Protein Negative (Negative) Urine Glucose (UA) Negative (Negative) Urine Ketones 1+ H (Negative) Urine Blood Trace H (Negative) Urine Nitrite Negative (Negative) Urine Bilirubin Negative (Negative) Urine Urobilinogen <2.0 (<2.0) mg/dL Ur Leukocyte Esterase Negative (Negative) Urine RBC 9 H (0-5) /hpf Urine WBC <1 (0-5) /hpf Ur Squamous Epith Cells 3 (0-4) /hpf Urine Mucus Rare H (None) /hpf Disposition Clinical Impression: Obstructive uropathy, Abdominal pain Disposition: HOME SELF-CARE Condition: Stable Instructions (If sedation given, give patient instructions): Abdominal Pain (ED) Additional Instructions: Please return to the Emergency Department if symptoms worsen or any other concerns. Prescriptions: HYDROcodone/APAP 7.5-325MG [Sheldon 7.5-325] 1 tab PO Q6HR PRN 3 Days #12 tab PRN Reason: Pain Ondansetron Odt [Zofran Odt] 4 mg PO Q8HR PRN #10 tab PRN Reason: Nausea Is patient prescribed a controlled substance at d/c from ED?: Yes Referrals: Caroline Diamond MD [Primary Care Provider] - 1-2 days Konrad Ryan MD [STAFF PHYSICIAN] - 1-2 days Time of Disposition: 14:13
[2018-05-12 08:24] LABS: ALT 28 U/L (9-52); AST 25 U/L (14-36); Albumin 4.7 g/dL (3.5-5.0); Alkaline Phosphatase 70 U/L (38-126); Amylase 79 U/L (30-110); Anion Gap 11 mmol/L; Blood Urea Nitrogen 17 mg/dL (7-17); Calcium 9.7 mg/dL (8.4-10.2); Carbon Dioxide 23 mmol/L (22-30); Chloride 107 mmol/L (98-107); Glucose 106 mg/dL (74-99); Lipase 113 U/L (23-300); Potassium 3.5 mmol/L (3.5-5.1); Sodium 141 mmol/L (137-145); Total Bilirubin 0.7 mg/dL (0.2-1.3); Total Protein 7.6 g/dL (6.3-8.2)
--- NOTE | 2018-05-12 08:42 | XR ---
EXAMINATION TYPE: XR KUB DATE OF EXAM: 05/12/2018 CLINICAL DATA: 52 year-old female with abdominal pain, [facility] COMPARISON: 04/16/2018 FINDINGS: Lung bases are clear. No evidence for free intraperitoneal air. No dilated small bowel or air-fluid levels. Scattered small air-fluid levels are present centrally in the mid to lower abdomen and right lower quadrant. Colonic gas is present on the left side of the ab domen. Scattered calcifications are unchanged. Advanced degenerative changes of the right hip. IMPRESSION: Scattered small air-fluid levels in the mid to lower abdomen seem to be within the small bowel. Howev er, colonic gas is present and no abnormal bowel dilatation is seen. Findings are suggestive of a reg ional ileus or enteritis rather than small bowel obstruction. No free air.
[2018-05-12 09:27] LABS: Appearance,Urine Clear (Clear); Bilirubin,Urine Negative (Negative); Blood,Urine Trace (Negative); Color,Urine Light Yellow; Glucose,Urine (UA) Negative (Negative); Ketones,Urine 1+ (Negative); Leukocyte Esterase,Urine Negative (Negative); Mucus,Urine Rare /hpf; Nitrite,Urine Negative (Negative); Protein,Urine Negative (Negative); RBC,Urine 9 /hpf (0-5); Squamous Epithelial Cell,Urine 3 /hpf (0-4); Urobilinogen,Urine <2.0 mg/dL (<2.0); WBC,Urine <1 /hpf (0-5)
[2018-05-12] MEDS ORDERED: KETOROLAC 30 MG/ML 1 ML VIAL IVP STA (10:17)
[2018-05-12] MEDS ORDERED: LORazepam 2 MG/ML INJ IV STA (10:17)
--- NOTE | 2018-05-12 10:40 | CT ---
EXAMINATION TYPE: CT abdomen pelvis w con DATE OF EXAM: 05/12/2018 COMPARISON: Prior CT 04/16/2017 HISTORY: Upper Abdominal and upper flank pain CT DLP: 471.2 mGycm Automated exposure control for dose reduction was used. TECHNIQUE: Helical acquisition of images from the lung bases through the pelvis have been completed. Exam performed without oral and with IV contrast. CONTRAST: Performed without Oral Contrast and with IV Contrast, patient injected with 100 mL of Isovue 300. FINDINGS: Lack of oral contrast could compromise the sensitivity of the exam. LUNG BASES: No significant abnormality is appreciated. AORTA: No significant abnormality is appreciated. LIVER/GB: Air in the biliary tree is again noted, there is periportal halo noted within the liver, ga llbladder is absent, central bile duct prominent likely due to postcholecystectomy change. PANCREAS: No significant abnormality is seen. SPLEEN: No significant abnormality is seen. ADRENALS: No significant abnormality is seen. KIDNEYS: The left kidney shows decreased nephrogram as compared to the right, there is delayed contra st excretion and left-sided hydronephrosis. Perinephric fluid is present on the left which is develop ed in the interval. Multiple serpiginous enhancing structures compatible with collateral vasculature is noted about the left renal collecting system similar to prior. A ureteral calculus is not identifi ed. REPRODUCTIVE ORGANS: Extensive vascularity, collateralization present in the left adnexal region. [place] within normal limits. Probable follicles associated with the right ovary. BOWEL: Fluid-filled colon is noted in the right lower quadrant. The appendix not seen with certainty . There is mass effect by the fluid-filled colon on the urinary bladder. FREE AIR: No Free Air visible. ASCITES: None visible. PELVIC ADENOPATHY: None visualized. RETROPERITONEAL ADENOPATHY: No Retroperitoneal Adenopathy visible. URINARY BLADDER: Mass effect as described due to fluid-filled right-sided:. OSSEOUS STRUCTURES: No significant abnormality is seen. IMPRESSION: FINDINGS SUGGEST URETERAL OBSTRUCTION WITHOUT DEFINITE STONE, CORRELATE FOR POSSIBLE URINARY TRACT IN FECTION. CONSIDER PLAIN FILM EXAM TO ASSESS FOR URINARY EXCRETION ON THE LEFT. LARGE AMOUNT OF VASCUL AR COLLATERALS ARE NOTED IN THE LEFT ADNEXAL REGION WELL ABOUT THE LEFT RENAL PELVIS. ADDITIONA L FINDINGS ABOVE.
[2018-05-12 12:30] VITALS: RESP 18
[2018-05-12 14:25] VITALS: BP 127/76; PULSE 60; TEMP 98
== END 2018-05-12 14:20 | disposition home or self-care (01) ==
LOC: EC 07:31
DX: N13.9 Obstructive and reflux uropathy, unspecified (principal); I10 Essential (primary) hypertension; K21.9 Gastro-esophageal reflux disease without esophagitis; G62.9 Polyneuropathy, unspecified; F41.9 Anxiety disorder, unspecified; F17.200 Nicotine dependence, unspecified, uncomplicated; Z79.82 Long term (current) use of aspirin; Z79.899 Other long term (current) drug therapy; Z88.1 Allergy status to other antibiotic agents; Z88.5 Allergy status to narcotic agent; Z88.8 Allergy status to other drugs, medicaments and biological substances; Z90.49 Acquired absence of other specified parts of digestive tract; Z85.41 Personal history of malignant neoplasm of cervix uteri
CPT/HCPCS: 99284 ×2; 96374 ×2; 96375 ×5; 96361 ×5; 36415; 80053; 82150; 83690; 84484; 85025; 81001; 74018; 74177; J2060; J1200; J2405; J1885; J1170; Q9967

== ENCOUNTER 2018-07-24 14:58 | Emergency (ER) | payer OTHER ==
[2018-07-24] MEDS ORDERED: KETOROLAC 30 MG/ML 1 ML VIAL IVP STA (16:08)
[2018-07-24] MEDS ORDERED: SODIUM CHLORIDE 0.9% 1,000 ML IV STA (16:08)
[2018-07-24 16:21] LABS: Basophils % (A) 0 %; Eosinophils # (A) 0.1 k/uL (0-0.7); Eosinophils % (A) 1 %; HCT 44.1 % (34.0-46.0); HGB 14.8 gm/dL (11.4-16.0); Lymphocytes # (A) 2.3 k/uL (1.0-4.8); Lymphocytes % (A) 22 %; MCH 34.8 pg (25.0-35.0); MCHC 33.6 g/dL (31.0-37.0); MCV 103.8 fL (80.0-100.0); Macrocytosis Slight; Mean Platelet Volume 7.5; Monocytes # (A) 0.3 k/uL (0-1.0); Monocytes % (A) 3 %; Neutrophils # (A) 7.3 k/uL (1.3-7.7); Neutrophils % (A) 72 %; Platelet Count 292 k/uL (150-450); RBC 4.25 m/uL (3.80-5.40); RDW 12.7 % (11.5-15.5); WBC 10.2 k/uL (3.8-10.6)
[2018-07-24 16:27] LABS: Appearance,Urine Clear (Clear); Bacteria,Urine Occasional /hpf; Bilirubin,Urine Negative (Negative); Blood,Urine Negative (Negative); Calcium Oxalate Crystals,Urine Few /hpf; Color,Urine Yellow; Glucose,Urine (UA) Negative (Negative); Ketones,Urine 1+ (Negative); Leukocyte Esterase,Urine Trace (Negative); Mucus,Urine Many /hpf; Nitrite,Urine Negative (Negative); PH, Urine 5.5 (5.0-8.0); Protein,Urine 1+ (Negative); RBC,Urine 5 /hpf (0-5); Specific Gravity,Urine 1.025 (1.001-1.035); Squamous Epithelial Cell,Urine 3 /hpf (0-4); WBC,Urine 3 /hpf (0-5)
[2018-07-24 16:30] LABS: ALT 15 U/L (9-52); AST 26 U/L (14-36); African American GFR (CKD) >90 (>60 ml/min/1.73 sqM); Albumin 5.2 g/dL (3.5-5.0); Alkaline Phosphatase 78 U/L (38-126); Amylase 56 U/L (30-110); Anion Gap 8 mmol/L; Blood Urea Nitrogen 21 mg/dL (7-17); Calcium 10.3 mg/dL (8.4-10.2); Carbon Dioxide 26 mmol/L (22-30); Chloride 109 mmol/L (98-107); Glucose 97 mg/dL (74-99); Lipase 96 U/L (23-300); Potassium 4.2 mmol/L (3.5-5.1); Sodium 143 mmol/L (137-145); Total Bilirubin 0.4 mg/dL (0.2-1.3); Total Protein 8.6 g/dL (6.3-8.2)
--- NOTE | 2018-07-24 16:35 | XR ---
EXAMINATION TYPE: XR KUB DATE OF EXAM: 07/24/2018 CLINICAL DATA: 52 year-old female abdominal pain, nausea, and diarrhea, [facility] COMPARISON: 05/12/2018 FINDINGS: Lung bases are clear. No evidence for free intraperitoneal air. A few small air-fluid levels in the pelvis. Small amount of scattered colonic air. No dilated small b owel loops. Tiny phleboliths in the pelvis. Stable curvilinear calcification projecting over the right iliac bone . At least moderate degenerative change of the right hip and [id number] at the left hip. IMPRESSION: 1. No evidence for free air or bowel obstruction. 2. Scattered small air-fluid levels in the pelvis could represent enteritis or ileus.
[2018-07-24] MEDS ORDERED: ONDANSETRON 4 MG/2 ML VIAL IVP STA (16:58)
--- NOTE | 2018-07-24 17:13 | ED ---
Abdominal Pain HPI - General Chief Complaint: Abdominal Pain Stated Complaint: Diarrhea Time Seen by Provider: 07/24/18 15:07 Source: patient Mode of arrival: ambulatory Limitations: no limitations - History of Present Illness Initial Comments: Patient is a 52-year-old female with a history of IBS is presenting to the emergency department with diarrhea x 1 week. Patient reports the diarrhea has been persistent with multiple episodes daily. Patient also reports intermittent nausea and 2-3 episodes of vomiting. Patient reports generalized abdominal cramping and pain that is constant and has not improved in a week. Patient reports the symptoms are typical for her due to her IBS but the prolonged diarrhea is not. Patient denies hematemesis, hematochezia or melena. Patient denies fever, headache, chest pain, shortness of breath, chest tightness or back pain. - Related Data Home Medications Medication Instructions Recorded Confirmed Gabapentin [Neurontin] 600 mg PO QID 06/20/16 05/12/18 Sucralfate [Carafate] 1 gm PO BID 04/16/18 05/12/18 tiZANidine HCL [Zanaflex] 4 mg PO BID 04/16/18 05/12/18 Aspirin/Acetaminophen/Caffeine 1 tab PO Q12H PRN 05/12/18 05/12/18 [Excedrin Migraine Caplet] Cetirizine HCl [Zyrtec] 10 mg PO DAILY 05/12/18 05/12/18 Cholecalciferol [Vitamin D3] 3,000 unit PO DAILY 05/12/18 05/12/18 Ensure 1 can PO DAILY 05/12/18 05/12/18 Esomeprazole Magnesium [NexIUM] 20 mg PO DAILY 05/12/18 05/12/18 Famotidine [Pepcid] 20 mg PO DAILY 05/12/18 05/12/18 Hyoscyamine Sulfate [Hyoscyamine 0.125 mg SL DAILY PRN 05/12/18 05/12/18 Sulfate SL] LORazepam [Ativan] 1 mg PO HS PRN 05/12/18 05/12/18 Multivitamins, Thera [Multivitamin 1 tab PO DAILY 05/12/18 05/12/18 (formulary)] Nicotine 7Mg/24Hr Patch [Habitrol 1 patch TRANSDERM DAILY 05/12/18 05/12/18 7Mg/24Hr Patch] Ondansetron [Zofran] 4 mg PO Q12HR PRN 05/12/18 05/12/18 Rizatriptan Benzoate [Maxalt MACHINE SETUP OPERATOR] 10 mg PO DAILY PRN 05/12/18 05/12/18 valACYclovir HCL [Valtrex] 1,000 mg PO DAILY PRN 05/12/18 05/12/18 Previous Rx's Medication Instructions Recorded Loratadine [Claritin] 10 mg PO DAILY #30 tab 05/17/14 Metoprolol Tartrate [Lopressor] 25 mg PO BID #14 tablet 05/17/14 HYDROcodone/APAP 7.5-325MG [[place] 1 tab PO Q6HR PRN 3 Days #12 tab 05/12/18 7.5-325] Ondansetron Odt [Zofran Odt] 4 mg PO Q8HR PRN #10 tab 05/12/18 Allergies Allergy/AdvReac Type Severity Reaction Status Date / Time metoclopramide HCl Allergy Anaphylaxis Verified 07/24/18 15:02 [From Reglan] morphine Allergy Anaphylaxis Verified 07/24/18 15:02 prochlorperazine edisylate Allergy Anaphylaxis Verified 07/24/18 15:02 [From Compazine] prochlorperazine maleate Allergy Anaphylaxis Verified 07/24/18 15:02 [From Compazine] Tetracyclines Allergy Anaphylaxis Verified 07/24/18 15:02 levofloxacin [From Levaquin] AdvReac Nausea & Verified 07/24/18 15:02 Vomiting Review of Systems ROS Statement: Those systems with pertinent positive or pertinent negative responses have been documented in the HPI. ROS Other: All systems not noted in ROS Statement are negative. Past Medical History Past Medical History: Cancer, GERD/Reflux, Hypertension Additional Past Medical History / Comment(s): pancreatitis, IBS, neuropathy, Raynauds, back PAIN, migraines, herniated disks C4 and C5; Cervical cancer (in remission), herpetic filemon History of Any Multi-Drug Resistant Organisms: None Reported Past Surgical History: Cholecystectomy, Tonsillectomy Additional Past Surgical History / Comment(s): neuroma, cervical coninition, permanent stitches in common bile duct and pancreatic, and sphincter of Oddi duct Past Anesthesia/Blood Transfusion Reactions: No Reported Reaction Past Psychological History: Anxiety, Depression, PTSD Smoking Status: Current every day smoker Past Alcohol Use History: None Reported Past Drug Use History: Marijuana General Exam Limitations: no limitations General appearance: alert, in no apparent distress Head exam: Present: atraumatic, normocephalic, normal inspection Eye exam: Present: normal appearance, PERRL, EOMI Pupils: Present: normal accommodation ENT exam: Present: normal exam, mucous membranes moist Neck exam: Present: normal inspection, full ROM Respiratory exam: Present: normal lung sounds bilaterally Cardiovascular Exam: Present: regular rate, normal rhythm, normal heart sounds GI/Abdominal exam: Present: soft, tenderness (Generalized abdominal tenderness on palpation.), normal bowel sounds. Absent: guarding, rebound, rigid Extremities exam: Present: normal inspection, full ROM Back exam: Present: normal inspection, full ROM. Absent: tenderness, CVA tenderness (R), CVA tenderness (L) Neurological exam: Present: alert, oriented X3 Psychiatric exam: Present: normal affect, normal mood Skin exam: Present: warm, intact, normal color Course Vital Signs 07/24/18 14:59 Temperature 99.5 F Pulse Rate 88 Respiratory 20 Rate Blood Pressure 121/75 O2 Sat by Pulse 97 Oximetry Medical Decision Making - Medical Decision Making Patient is a 52-year-old female presents emergency department for diarrhea. Patient was given IV fluids and Zofran. KUB is negative for perforation But is suggestive of possible enteritis. On reevaluation patient reports she feels much better and is ready go home. She will be discharged with Zofran. Patient advised to follow-up with a GI specialist. Patient advised to return to emergency department if symptoms worsen. Case discussed with physician. - Lab Data Result diagrams: 07/24/18 16:05 07/24/18 16:05 Lab Results 07/24/18 07/24/18 07/24/18 Range/Units 16:05 16:05 16:05 WBC 10.2 (3.8-10.6) k/uL RBC 4.25 (3.80-5.40) m/uL Hgb 14.8 (11.4-16.0) gm/dL Hct 44.1 (34.0-46.0) % MCV 103.8 H (80.0-100.0) fL MCH 34.8 (25.0-35.0) pg MCHC 33.6 (31.0-37.0) g/dL RDW 12.7 (11.5-15.5) % Plt Count 292 (150-450) k/uL Neutrophils % 72 % Lymphocytes % 22 % Monocytes % 3 % Eosinophils % 1 % Basophils % 0 % Neutrophils # 7.3 (1.3-7.7) k/uL Lymphocytes # 2.3 (1.0-4.8) k/uL Monocytes # 0.3 (0-1.0) k/uL Eosinophils # 0.1 (0-0.7) k/uL Basophils # 0.0 (0-0.2) k/uL Macrocytosis Slight Sodium 143 (137-145) mmol/L Potassium 4.2 (3.5-5.1) mmol/L Chloride 109 H (98-107) mmol/L Carbon Dioxide 26 (22-30) mmol/L Anion Gap 8 mmol/L BUN 21 H (7-17) mg/dL Creatinine 0.58 (0.52-1.04) mg/dL Est GFR (CKD-EPI)AfAm >90 (>60 ml/min/1.73 sqM) Est GFR (CKD-EPI)NonAf >90 (>60 ml/min/1.73 sqM) Glucose 97 (74-99) mg/dL Calcium 10.3 H (8.4-10.2) mg/dL Total Bilirubin 0.4 (0.2-1.3) mg/dL AST 26 (14-36) U/L ALT 15 (9-52) U/L Alkaline Phosphatase 78 (38-126) U/L Total Protein 8.6 H (6.3-8.2) g/dL Albumin 5.2 H (3.5-5.0) g/dL Amylase 56 (30-110) U/L Lipase 96 (23-300) U/L Urine Color Yellow Urine Appearance Clear (Clear) Urine pH 5.5 (5.0-8.0) Ur Specific [place] 1.025 (1.001-1.035) Urine Protein 1+ H (Negative) Urine Glucose (UA) Negative (Negative) Urine Ketones 1+ H (Negative) Urine Blood Negative (Negative) Urine Nitrite Negative (Negative) Urine Bilirubin Negative (Negative) Urine Urobilinogen 3.0 (<2.0) mg/dL Ur Leukocyte Esterase Trace H (Negative) Urine RBC 5 (0-5) /hpf Urine WBC 3 (0-5) /hpf Ur Squamous Epith Cells 3 (0-4) /hpf Calcium Oxalate Crystal Few H (None) /hpf Urine Bacteria Occasional H (None) /hpf Urine Mucus Many H (None) /hpf Disposition Clinical Impression: Diarrhea Disposition: HOME SELF-CARE Condition: Stable Additional Instructions: Please take prescribed medication as directed. Please follow up with GI. Please return to emergency department if symptoms worsen. Is patient prescribed a controlled substance at d/c from ED?: No Referrals: Caroline Diamond MD [Primary Care Provider] - 1-2 days Time of Disposition: 17:44
[2018-07-24 18:25] VITALS: BP 124/78; PULSE 87; RESP 18; TEMP 98
== END 2018-07-24 18:25 | disposition home or self-care (01) ==
LOC: EC 14:58
DX: R19.7 Diarrhea, unspecified (principal); R10.84 Generalized abdominal pain; R11.2 Nausea with vomiting, unspecified; K21.9 Gastro-esophageal reflux disease without esophagitis; G62.9 Polyneuropathy, unspecified; I10 Essential (primary) hypertension; K58.9 Irritable bowel syndrome, unspecified; F32.9 Major depressive disorder, single episode, unspecified; F41.9 Anxiety disorder, unspecified; F43.10 Post-traumatic stress disorder, unspecified; F17.200 Nicotine dependence, unspecified, uncomplicated; Z85.41 Personal history of malignant neoplasm of cervix uteri; Z79.899 Other long term (current) drug therapy; Z88.1 Allergy status to other antibiotic agents; Z88.5 Allergy status to narcotic agent; Z88.8 Allergy status to other drugs, medicaments and biological substances
CPT/HCPCS: 36415; 80053; 82150; 83690; 85025; 81001; 74018; 99284; 96374; 96375; 96361 ×2; J2405; J1885

== ENCOUNTER 2019-02-19 16:38 | Inpatient (IN) | payer OTHER ==
[2019-02-19] MEDS ORDERED: ACETAMINOPHEN TAB 500 MG TAB PO STA (17:24)
[2019-02-19 17:37] LABS: Basophils # (A) 0.2 k/uL (0-0.2); Basophils % (A) 2 %; Eosinophils # (A) 0.1 k/uL (0-0.7); Eosinophils % (A) 1 %; HCT 43.1 % (34.0-46.0); HGB 14.8 gm/dL (11.4-16.0); Lymphocytes # (A) 0.8 k/uL (1.0-4.8); Lymphocytes % (A) 7 %; MCH 34.9 pg (25.0-35.0); MCHC 34.3 g/dL (31.0-37.0); MCV 101.6 fL (80.0-100.0); Mean Platelet Volume 8.1; Monocytes # (A) 0.6 k/uL (0-1.0); Monocytes % (A) 5 %; Neutrophils # (A) 9.7 k/uL (1.3-7.7); Neutrophils % (A) 85 %; Platelet Count 295 k/uL (150-450); RBC 4.24 m/uL (3.80-5.40); RDW 12.6 % (11.5-15.5); WBC 11.5 k/uL (3.8-10.6)
[2019-02-19] MEDS ORDERED: SODIUM CHLORIDE 0.9% 1,000 ML IV STA (17:40)
[2019-02-19 17:48] LABS: Appearance,Urine Turbid (Clear); Bilirubin,Urine Negative (Negative); Blood,Urine Moderate (Negative); Color,Urine Yellow; Glucose,Urine (UA) Negative (Negative); Ketones,Urine 1+ (Negative); Leukocyte Esterase,Urine Large (Negative); Mucus,Urine Few /hpf; Nitrite,Urine Positive (Negative); Protein,Urine 2+ (Negative); RBC,Urine 16 /hpf (0-5); WBC,Urine >182 /hpf (0-5)
[2019-02-19 17:50] LABS: African American GFR (CKD) >90 (>60 ml/min/1.73 sqM); Amphetamine Screen,Urine Not Detected (NotDetected); Anion Gap 12 mmol/L; Barbiturate Screen,Urine Not Detected (NotDetected); Benzodiazepines Screen,Urine Not Detected (NotDetected); Blood Urea Nitrogen 18 mg/dL (7-17); Calcium 9.9 mg/dL (8.4-10.2); Carbon Dioxide 23 mmol/L (22-30); Chloride 104 mmol/L (98-107); Cocaine Screen,Urine Not Detected (NotDetected); Glucose 112 mg/dL (74-99); Magnesium 1.8 mg/dL (1.6-2.3); Methadone Screen, Urine Not Detected (NotDetected); Non-African American GFR(CKD) >90 (>60 ml/min/1.73 sqM); Opiate Screen,Urine Not Detected (NotDetected); Oxycodone Screen, Urine Not Detected (NotDetected); Phencyclidine Screen,Urine Not Detected (NotDetected); Potassium 4.1 mmol/L (3.5-5.1); Sodium 139 mmol/L (137-145); Tricyclic Antidepressant,Urine Not Detected (NotDetected); Urn Cannabinoid Scrn Detected (NotDetected)
--- NOTE | 2019-02-19 18:04 | XR ---
EXAMINATION TYPE: XR chest 2V DATE OF EXAM: 02/19/2019 COMPARISON: 03/03/2015 HISTORY: Fever TECHNIQUE: FINDINGS: Heart and mediastinum are normal. Lungs are clear of infiltrate. There is mild pulmonary hy perinflation. Bony thorax is intact. IMPRESSION: There is probably some COPD. Normal heart. No change compared to old exam. No acute lung disease.
--- NOTE | 2019-02-19 18:09 | ED ---
General Adult HPI - General Chief complaint: Psychiatric Symptoms Stated complaint: Mental health Time Seen by Provider: 02/19/19 17:02 Source: patient Mode of arrival: wheelchair Limitations: physical limitation - History of Present Illness Initial comments: Dictation was produced using [employer] dictation software. please excuse any grammatical, word or spelling errors. Chief Complaint: 53-year-old female past medical history of GERD, hypertension, pancreatic tenderness presents with homelessness, suicidal ideation and fever. History of Present Illness: 53-year-old female presents with suicidal ideation. Patient has no specific plan. She is recently homeless again. Patient has been not having nausea vomiting and fever. She does have some right-sided flank pain. Patient has been having urinary urgency over the last one week. She also has been having nasal congestion, cough and runnynose. He reports that she normally has runny nose. Denies any overt sick contacts. The ROS documented in this emergency department record has been reviewed and confirmed by me. Those systems with pertinent positive or negative responses have been documented in the HPI. All other systems are other negative and/or noncontributory. PHYSICAL EXAM: General Impression: Alert and oriented x3, not in acute distress HEENT: Normocephalic atraumatic, extra-ocular movements intact, pupils equal and reactive to light bilaterally, mucous membranes moist. Cardiovascular: Heart regular rate and rhythm, S1&S2 audible, no murmurs, rubs or gallops Chest: Lungs clear to auscultation bilaterally, no rhonchi, no wheeze, no rales Abdomen: Bowel sounds present, abdomen soft, non-tender, non-distended, no organomegaly Musculoskeletal: Pulses present and equal in all extremities, no peripheral edema, positive CVA tenderness on the right Motor: no focal deficits noted Neurological: CN II-XII grossly intact, no focal motor or sensory deficits noted Skin: Intact with no visualized rashes Psych: Normal affect and mood ED course: 53-year-old female presents with fever, suicidal ideation upon arrival shows temperature 102.3, heart rate of 129. She has urinary symptoms and right-sided flank pain. There is concern for pyelonephritis. Laboratory evaluation obtained. Leukocytosis of 11.5, macrocytosis. Anabolic panel is unremarkable. No lactic acidosis. Urinalysis positive for urinary tract infection. Chest x-ray, flu and rapid strep test is negative. Urine drug screen positive for marijuana. He didn't patient's social situation believe patient would benefit from inpatient admission. Patient given Rocephin. She'll be admitted for pyelonephritis. Psychiatry in consultation for suicidal ideation. Suicide precautions are ordered. Discussed patient case with Dr. Mark elizabeth was willing to accept patient's care. EKG interpretation: Ventricular rate 119, sinus tachycardia,. 112, QRS 70, QTC 427. No ND prolongation, no QTC prolongation, no ST or T-wave changes noted. EKG compared to 02/19/2014 showing no changes. Overall, this EKG is unremarkable - Related Data Home Medications Medication Instructions Recorded Confirmed Gabapentin [Neurontin] 600 mg PO QID 06/20/16 05/12/18 Sucralfate [Carafate] 1 gm PO BID 04/16/18 05/12/18 tiZANidine HCL [Zanaflex] 4 mg PO BID 04/16/18 05/12/18 Aspirin/Acetaminophen/Caffeine 1 tab PO Q12H PRN 05/12/18 05/12/18 [Excedrin Migraine Caplet] Cetirizine HCl [Zyrtec] 10 mg PO DAILY 05/12/18 05/12/18 Cholecalciferol [Vitamin D3] 3,000 unit PO DAILY 05/12/18 05/12/18 Ensure 1 can PO DAILY 05/12/18 05/12/18 Esomeprazole Magnesium [NexIUM] 20 mg PO DAILY 05/12/18 05/12/18 Famotidine [Pepcid] 20 mg PO DAILY 05/12/18 05/12/18 Hyoscyamine Sulfate [Hyoscyamine 0.125 mg SL DAILY PRN 05/12/18 05/12/18 Sulfate SL] LORazepam [Ativan] 1 mg PO HS PRN 05/12/18 05/12/18 Multivitamins, Thera [Multivitamin 1 tab PO DAILY 05/12/18 05/12/18 (formulary)] Nicotine 7Mg/24Hr Patch [Habitrol 1 patch TRANSDERM DAILY 05/12/18 05/12/18 7Mg/24Hr Patch] Ondansetron [Zofran] 4 mg PO Q12HR PRN 05/12/18 05/12/18 Rizatriptan Benzoate [Maxalt ADVERTISING COPYWRITER] 10 mg PO DAILY PRN 05/12/18 05/12/18 valACYclovir HCL [Valtrex] 1,000 mg PO DAILY PRN 05/12/18 05/12/18 Previous Rx's Medication Instructions Recorded Loratadine [Claritin] 10 mg PO DAILY #30 tab 05/17/14 Metoprolol Tartrate [Lopressor] 25 mg PO BID #14 tablet 05/17/14 HYDROcodone/APAP 7.5-325MG [[place] 1 tab PO Q6HR PRN 3 Days #12 tab 05/12/18 7.5-325] Ondansetron Odt [Zofran Odt] 4 mg PO Q8HR PRN #10 tab 05/12/18 Allergies Allergy/AdvReac Type Severity Reaction Status Date / Time metoclopramide HCl Allergy Anaphylaxis Verified 07/24/18 15:02 [From Reglan] morphine Allergy Anaphylaxis Verified 07/24/18 15:02 prochlorperazine edisylate Allergy Anaphylaxis Verified 07/24/18 15:02 [From Compazine] prochlorperazine maleate Allergy Anaphylaxis Verified 07/24/18 15:02 [From Compazine] Tetracyclines Allergy Anaphylaxis Verified 07/24/18 15:02 levofloxacin [From Levaquin] AdvReac Nausea & Verified 07/24/18 15:02 Vomiting Review of Systems ROS Statement: Those systems with pertinent positive or pertinent negative responses have been documented in the HPI. ROS Other: All systems not noted in ROS Statement are negative. Past Medical History Past Medical History: Cancer, GERD/Reflux, Hypertension Additional Past Medical History / Comment(s): pancreatitis, IBS, neuropathy, Raynauds, back PAIN, migraines, herniated disks C4 and C5; Cervical cancer (in remission), herpetic filemon History of Any Multi-Drug Resistant Organisms: None Reported Past Surgical History: Cholecystectomy, Tonsillectomy Additional Past Surgical History / Comment(s): neuroma, cervical coninition, permanent stitches in common bile duct and pancreatic, and sphincter of Oddi duct Past Anesthesia/Blood Transfusion Reactions: No Reported Reaction Past Psychological History: Anxiety, Depression, PTSD Smoking Status: Current every day smoker Past Alcohol Use History: None Reported Past Drug Use History: Marijuana General Exam Limitations: physical limitation Course Vital Signs 02/19/19 02/19/19 02/19/19 16:48 17:44 18:10 Temperature 102.3 F H Pulse Rate 129 H 97 Respiratory 19 16 16 Rate Blood Pressure 137/92 O2 Sat by Pulse 96 99 Oximetry 02/19/19 18:47 Temperature 102.2 F H Pulse Rate Respiratory Rate Blood Pressure O2 Sat by Pulse Oximetry Medical Decision Making - Lab Data Result diagrams: 02/19/19 17:29 02/19/19 17:29 Lab Results 02/19/19 02/19/19 02/19/19 Range/Units 17:29 17:29 17:29 WBC 11.5 H (3.8-10.6) k/uL RBC 4.24 (3.80-5.40) m/uL Hgb 14.8 (11.4-16.0) gm/dL Hct 43.1 (34.0-46.0) % MCV 101.6 H (80.0-100.0) fL MCH 34.9 (25.0-35.0) pg MCHC 34.3 (31.0-37.0) g/dL RDW 12.6 (11.5-15.5) % Plt Count 295 (150-450) k/uL Neutrophils % 85 % Lymphocytes % 7 % Monocytes % 5 % Eosinophils % 1 % Basophils % 2 % Neutrophils # 9.7 H (1.3-7.7) k/uL Lymphocytes # 0.8 L (1.0-4.8) k/uL Monocytes # 0.6 (0-1.0) k/uL Eosinophils # 0.1 (0-0.7) k/uL Basophils # 0.2 (0-0.2) k/uL Sodium 139 (137-145) mmol/L Potassium 4.1 (3.5-5.1) mmol/L Chloride 104 (98-107) mmol/L Carbon Dioxide 23 (22-30) mmol/L Anion Gap 12 mmol/L BUN 18 H (7-17) mg/dL Creatinine 0.67 (0.52-1.04) mg/dL Est GFR (CKD-EPI)AfAm >90 (>60 ml/min/1.73 sqM) Est GFR (CKD-EPI)NonAf >90 (>60 ml/min/1.73 sqM) Glucose 112 H (74-99) mg/dL Plasma Lactic Acid [place] 1.1 (0.7-2.0) mmol/L Calcium 9.9 (8.4-10.2) mg/dL Magnesium 1.8 (1.6-2.3) mg/dL Lipase (23-300) U/L Urine Color Urine Appearance (Clear) Urine pH (5.0-8.0) Ur Specific [place] (1.001-1.035) Urine Protein (Negative) Urine Glucose (UA) (Negative) Urine Ketones (Negative) Urine Blood (Negative) Urine Nitrite (Negative) Urine Bilirubin (Negative) Urine Urobilinogen (<2.0) mg/dL Ur Leukocyte Esterase (Negative) Urine RBC (0-5) /hpf Urine WBC (0-5) /hpf Urine WBC Clumps (None) /hpf Urine Mucus (None) /hpf Urine Opiates Screen (NotDetected) Ur Oxycodone Screen (NotDetected) Urine Methadone Screen (NotDetected) Ur Propoxyphene Screen (NotDetected) Ur Barbiturates Screen (NotDetected) U Tricyclic Antidepress (NotDetected) Ur Phencyclidine Scrn (NotDetected) Ur Amphetamines Screen (NotDetected) U Methamphetamines Scrn (NotDetected) U Benzodiazepines Scrn (NotDetected) Urine Cocaine Screen (NotDetected) U Marijuana (THC) Screen (NotDetected) Influenza Type A RNA (Not Detectd) Influenza Type B (PCR) (Not Detectd) Group A Strep Rapid (Negative) 02/19/19 02/19/19 02/19/19 Range/Units 17:29 17:29 17:29 WBC (3.8-10.6) k/uL RBC (3.80-5.40) m/uL Hgb (11.4-16.0) gm/dL Hct (34.0-46.0) % MCV (80.0-100.0) fL MCH (25.0-35.0) pg MCHC (31.0-37.0) g/dL RDW (11.5-15.5) % Plt Count (150-450) k/uL Neutrophils % % Lymphocytes % % Monocytes % % Eosinophils % % Basophils % % Neutrophils # (1.3-7.7) k/uL Lymphocytes # (1.0-4.8) k/uL Monocytes # (0-1.0) k/uL Eosinophils # (0-0.7) k/uL Basophils # (0-0.2) k/uL Sodium (137-145) mmol/L Potassium (3.5-5.1) mmol/L Chloride (98-107) mmol/L Carbon Dioxide (22-30) mmol/L Anion Gap mmol/L BUN (7-17) mg/dL Creatinine (0.52-1.04) mg/dL Est GFR (CKD-EPI)AfAm (>60 ml/min/1.73 sqM) Est GFR (CKD-EPI)NonAf (>60 ml/min/1.73 sqM) Glucose (74-99) mg/dL Plasma Lactic Acid [place] (0.7-2.0) mmol/L Calcium (8.4-10.2) mg/dL Magnesium (1.6-2.3) mg/dL Lipase 69 (23-300) U/L Urine Color Yellow Urine Appearance Turbid H (Clear) Urine pH 6.0 (5.0-8.0) Ur Specific [place] 1.020 (1.001-1.035) Urine Protein 2+ H (Negative) Urine Glucose (UA) Negative (Negative) Urine Ketones 1+ H (Negative) Urine Blood Moderate H (Negative) Urine Nitrite Positive H (Negative) Urine Bilirubin Negative (Negative) Urine Urobilinogen 2.0 (<2.0) mg/dL Ur Leukocyte Esterase Large H (Negative) Urine RBC 16 H (0-5) /hpf Urine WBC >182 H (0-5) /hpf Urine WBC Clumps Many H (None) /hpf Urine Mucus Few H (None) /hpf Urine Opiates Screen Not Detected (NotDetected) Ur Oxycodone Screen Not Detected (NotDetected) Urine Methadone Screen Not Detected (NotDetected) Ur Propoxyphene Screen Not Detected (NotDetected) Ur Barbiturates Screen Not Detected (NotDetected) U Tricyclic Antidepress Not Detected (NotDetected) Ur Phencyclidine Scrn Not Detected (NotDetected) Ur Amphetamines Screen Not Detected (NotDetected) U Methamphetamines Scrn Not Detected (NotDetected) U Benzodiazepines Scrn Not Detected (NotDetected) Urine Cocaine Screen Not Detected (NotDetected) U Marijuana (THC) Screen Detected H (NotDetected) Influenza Type A RNA (Not Detectd) Influenza Type B (PCR) (Not Detectd) Group A Strep Rapid (Negative) 02/19/19 02/19/19 Range/Units 17:34 17:34 WBC (3.8-10.6) k/uL RBC (3.80-5.40) m/uL Hgb (11.4-16.0) gm/dL Hct (34.0-46.0) % MCV (80.0-100.0) fL MCH (25.0-35.0) pg MCHC (31.0-37.0) g/dL RDW (11.5-15.5) % Plt Count (150-450) k/uL Neutrophils % % Lymphocytes % % Monocytes % % Eosinophils % % Basophils % % Neutrophils # (1.3-7.7) k/uL Lymphocytes # (1.0-4.8) k/uL Monocytes # (0-1.0) k/uL Eosinophils # (0-0.7) k/uL Basophils # (0-0.2) k/uL Sodium (137-145) mmol/L Potassium (3.5-5.1) mmol/L Chloride (98-107) mmol/L Carbon Dioxide (22-30) mmol/L Anion Gap mmol/L BUN (7-17) mg/dL Creatinine (0.52-1.04) mg/dL Est GFR (CKD-EPI)AfAm (>60 ml/min/1.73 sqM) Est GFR (CKD-EPI)NonAf (>60 ml/min/1.73 sqM) Glucose (74-99) mg/dL Plasma Lactic Acid [place] (0.7-2.0) mmol/L Calcium (8.4-10.2) mg/dL Magnesium (1.6-2.3) mg/dL Lipase (23-300) U/L Urine Color Urine Appearance (Clear) Urine pH (5.0-8.0) Ur Specific [place] (1.001-1.035) Urine Protein (Negative) Urine Glucose (UA) (Negative) Urine Ketones (Negative) Urine Blood (Negative) Urine Nitrite (Negative) Urine Bilirubin (Negative) Urine Urobilinogen (<2.0) mg/dL Ur Leukocyte Esterase (Negative) Urine RBC (0-5) /hpf Urine WBC (0-5) /hpf Urine WBC Clumps (None) /hpf Urine Mucus (None) /hpf Urine Opiates Screen (NotDetected) Ur Oxycodone Screen (NotDetected) Urine Methadone Screen (NotDetected) Ur Propoxyphene Screen (NotDetected) Ur Barbiturates Screen (NotDetected) U Tricyclic Antidepress (NotDetected) Ur Phencyclidine Scrn (NotDetected) Ur Amphetamines Screen (NotDetected) U Methamphetamines Scrn (NotDetected) U Benzodiazepines Scrn (NotDetected) Urine Cocaine Screen (NotDetected) U Marijuana (THC) Screen (NotDetected) Influenza Type A RNA Not Detected (Not Detectd) Influenza Type B (PCR) Not Detected (Not Detectd) Group A Strep Rapid Negative (Negative) Disposition Clinical Impression: Pyelonephritis Disposition: ADMITTED IP TO THIS [facility] Condition: Fair Referrals: None,Stated [Primary Care Provider] - 1-2 days Decision Time: 19:15
[2019-02-19] MEDS ORDERED: cefTRIAXone IN SWFI 1,000 MG/10 ML SYRINGE IVP STA (18:54)
[2019-02-19] MEDS ORDERED: NALOXONE 0.4 MG/ML 1 ML VIAL IV PRN (19:10)
[2019-02-19] MEDS ORDERED: LORazepam 1 MG TAB PO PRN (21:14)
--- NOTE | 2019-02-19 21:44 | P.HPIM ---
History of Present Illness H&P Date: 02/19/19 The patient is a 53-year-old female with a past medical history of PTSD, anxiety, depression, chronic pain secondary to DJD as well as cervical disc herniation C4 through 6, essential hypertension, GERD, PUD, neuropathy, Raynauds syndrome who presented to the ER due to poor social situation and being homeless, there is concern for suicidal ideation her the patient reported no plan and actually stated that she was feeling increasingly hopeless and was going to sleep on the street as she had nowhere to go. The patient since September has been [employer] and has [email or web address] friends recently found herself without a place to stay. The patient also reports a week of dysuria urgency and suprapubic and lower abdominal pain, with subjective fevers and chills for the last 2-3 days, she also reports lower back pain, and noted some nausea heaves and nonbloody bilious emesis today. The patient has tried hear cranberry pills without any improvement, she reports that diminished appetite over the last 2 days has had minimal oral intake. She also reports symptoms of URI including nasal congestion cough and runny nose. In the ER the patient had a comprehensive workup she was noted to be febrile at 102.3 and was tachycardic on presentation, she was normotensive. Chest x-ray showed probable COPD no acute lung disease Further workup with a CBC Indicated a white count of 11.5, sodium 139, potassium 4.1, BUN 18, urinalysis was nitrite positive large leuk esterase positive, With greater than 182 WBCs, The patient was given a liter of fluids and given a dose of Rocephin recommended for admission Review of Systems Pertinent positives per HPI all other review of systems are otherwise negative Past Medical History Past Medical History: Cancer, GERD/Reflux, Hypertension Additional Past Medical History / Comment(s): pancreatitis, IBS, neuropathy, Raynauds, back PAIN, migraines, herniated disks C4 and C5; Cervical cancer (in remission), herpetic filemon History of Any Multi-Drug Resistant Organisms: None Reported Past Surgical History: Cholecystectomy, Tonsillectomy Additional Past Surgical History / Comment(s): neuroma, cervical coninition, permanent stitches in common bile duct and pancreatic, and sphincter of Oddi duct Past Anesthesia/Blood Transfusion Reactions: No Reported Reaction Past Psychological History: Anxiety, Depression, PTSD Smoking Status: Current every day smoker Past Alcohol Use History: None Reported Past Drug Use History: Marijuana Medications and Allergies Home Medications Medication Instructions Recorded Confirmed Type Loratadine [Claritin] 10 mg PO DAILY #30 tab 05/17/14 02/19/19 Rx Metoprolol Tartrate [Lopressor] 25 mg PO BID #14 tablet 05/17/14 02/19/19 Rx Gabapentin [Neurontin] 600 mg PO QID 06/20/16 02/19/19 History Aspirin/Acetaminophen/Caffeine 1 tab PO Q12H PRN 05/12/18 02/19/19 History [Excedrin Migraine Caplet] Cholecalciferol [Vitamin D3] 3,000 unit PO DAILY 05/12/18 02/19/19 History Esomeprazole Magnesium [NexIUM] 20 mg PO DAILY 05/12/18 02/19/19 History Famotidine [Pepcid] 20 mg PO DAILY 05/12/18 02/19/19 History Hyoscyamine Sulfate [Hyoscyamine 0.125 mg SL Q12H PRN 05/12/18 02/19/19 History Sulfate SL] LORazepam [Ativan] 1 mg PO HS PRN 05/12/18 02/19/19 History Nicotine 7Mg/24Hr Patch [Habitrol 1 patch TRANSDERM DAILY 05/12/18 02/19/19 History 7Mg/24Hr Patch] Rizatriptan Benzoate [Maxalt TIMBER SIZER] 10 mg PO DAILY PRN 05/12/18 02/19/19 History valACYclovir HCL [Valtrex] 1,000 mg PO BID 05/12/18 02/19/19 History Ascorbic Acid [Vitamin C] 500 mg PO DAILY 02/19/19 02/19/19 History DULoxetine HCL [Cymbalta] 20 mg PO DAILY 02/19/19 02/19/19 History Lidocaine 4% Cream [Lmx 4] 1 applic TOPICAL DAILY 02/19/19 02/19/19 History Ondansetron Odt [Zofran Odt] 8 mg PO Q8HR PRN 02/19/19 02/19/19 History Sucralfate [Carafate] 1 gm PO BID 02/19/19 02/19/19 History tiZANidine HCL [Zanaflex] 2 - 4 mg PO Q8H PRN 02/19/19 02/19/19 History traZODone HCL [Desyrel] 100 mg PO HS 02/19/19 02/19/19 History Allergies Allergy/AdvReac Type Severity Reaction Status Date / Time metoclopramide HCl Allergy Anaphylaxis Verified 02/19/19 20:45 [From Reglan] morphine Allergy Anaphylaxis Verified 02/19/19 20:45 prochlorperazine edisylate Allergy Anaphylaxis Verified 02/19/19 20:45 [From Compazine] prochlorperazine maleate Allergy Anaphylaxis Verified 02/19/19 20:45 [From Compazine] Tetracyclines Allergy Anaphylaxis Verified 02/19/19 20:45 levofloxacin [From Levaquin] AdvReac Nausea & Verified 02/19/19 20:45 Vomiting Physical Exam Vitals: Vital Signs Temp Pulse Resp BP Pulse Ox 02/19/19 19:47 100.9 F H 89 16 115/74 98 02/19/19 18:47 102.2 F H 02/19/19 18:10 97 16 99 02/19/19 17:44 16 02/19/19 16:48 102.3 F H 129 H 19 137/92 96 Intake and Output 02/19/19 02/19/19 02/19/19 06:59 14:59 22:59 Other: Weight 45.359 kg Constitutional: No acute distress, conversant, pleasant Eyes: Anicteric sclerae, moist conjunctiva, no lid-lag, PERRLA ENMT: NC/AT,Oropharynx clear, no erythema, exudates Neck:Supple, FROM, no masses, or JVD, No carotid bruits; No thyromegaly Lungs: Clear to auscultation, Clear to percussion, Normal respiratory effort, no accessory muscle use Cardiovascular: Heart regular in rate and rhythm, No murmurs, gallops, or rubs no peripheral edema Abdominal/: Right CVA tenderness, Soft mild suprapubic tenderness, non distended, no guarding, no rebound or rigidity, Normoactive bowel sounds No hepatomegaly, No splenomegaly, No palpable mass No abdominal wall hernia noted Skin: Normal temperature, tone, texture, turgor, No induration No subcutaneous nodules, No rash, lesions, No ulcers Extremities:No digital cyanosis No clubbing, Pedal pulses intact and symmetrical Radial pulses intact and symmetrical Normal gait and station, No calf tenderness Psychiatric: Alert and oriented to person, place and time, flat affect depressed emotional, denies any suicidal ideation, noted depressive symptomatology Neuro: Muscles Strength 5/5 in all 4 extremities, Sensation to light touch g rossly present throughout, Cranial nerves II-XII grossly intact. No focal sensory deficits Results CBC & Chem 7: 02/19/19 17:29 02/19/19 17:29 Labs: Abnormal Lab Results - Last 24 Hours (Table) 02/19/19 02/19/19 02/19/19 Range/Units 17:29 17:29 17:29 WBC 11.5 H (3.8-10.6) k/uL MCV 101.6 H (80.0-100.0) fL Neutrophils # 9.7 H (1.3-7.7) k/uL Lymphocytes # 0.8 L (1.0-4.8) k/uL BUN 18 H (7-17) mg/dL Glucose 112 H (74-99) mg/dL Urine Appearance Turbid H (Clear) Urine Protein 2+ H (Negative) Urine Ketones 1+ H (Negative) Urine Blood Moderate H (Negative) Urine Nitrite Positive H (Negative) Ur Leukocyte Esterase Large H (Negative) Urine RBC 16 H (0-5) /hpf Urine WBC >182 H (0-5) /hpf Urine WBC Clumps Many H (None) /hpf Urine Mucus Few H (None) /hpf U Marijuana (THC) Screen (NotDetected) 02/19/19 Range/Units 17:29 WBC (3.8-10.6) k/uL MCV (80.0-100.0) fL Neutrophils # (1.3-7.7) k/uL Lymphocytes # (1.0-4.8) k/uL BUN (7-17) mg/dL Glucose (74-99) mg/dL Urine Appearance (Clear) Urine Protein (Negative) Urine Ketones (Negative) Urine Blood (Negative) Urine Nitrite (Negative) Ur Leukocyte Esterase (Negative) Urine RBC (0-5) /hpf Urine WBC (0-5) /hpf Urine WBC Clumps (None) /hpf Urine Mucus (None) /hpf U Marijuana (THC) Screen Detected H (NotDetected) Assessment and Plan Assessment: Sepsis Acute pyelonephritis Severe Depression Chronic pain Peripheral neuropathy PTSD and anxiety IBS Raynaud's syndrome Plan: The patient is admitted anticipated greater than 2 midnight stay with sepsis secondary to urinary tract infection, patient is normotensive and hemodynamically stable after being initially tachycardic, will order blood cultures, and urine cultures stat. Continue empiric IV antibiotics with Rocephin with supportive therapy Zofran and morphine as needed. Patient is severely depressed but is not actively suicidal, agree with consult to psychiatry, discontinue one-to-one site safety manager. Continue IV fluids NS at 100 mL an hour. Resume all the patient's home medications, continue to follow her clinical course, initiate her on SCDs heparin and PPI for DVT and GI prophylaxis respectively CODE STATUS: Full code Anticipated discharge: 2-3 days Discussed plan of care with patient
[2019-02-19] MEDS ORDERED: HYOSCYAMINE SULFATE 0.125 MG TAB PO PRN (22:00)
[2019-02-19] MEDS ORDERED: SUMAtriptan SUCCINATE 50 MG TAB PO PRN (22:00)
[2019-02-19] MEDS: GABAPENTIN 300 MG CAP PO SCH (22:08)
[2019-02-19] MEDS ORDERED: traZODone HCL 100 MG TAB PO SCH (23:15)
[2019-02-19] MEDS: tiZANidine 4 MG TAB PO PRN (23:46)
[2019-02-19] MEDS: HEPARIN SODIUM,PORCINE 5,000 UNIT/ML 1 ML VIAL SQ SCH (23:46)
[2019-02-19] MEDS: SODIUM CHLORIDE 0.9% 1,000 ML IV SCH (23:46)
[2019-02-20] MEDS: ACETAMINOPHEN TAB 325 MG TAB PO PRN ×3 (01:55→19:28)
[2019-02-20] MEDS: ASCORBIC ACID 500 MG TAB PO SCH (08:05)
[2019-02-20] MEDS: FAMOTIDINE 20 MG TAB PO SCH (08:05)
[2019-02-20] MEDS: METOPROLOL TARTRATE 25 MG TAB PO SCH ×2 (08:05→20:24)
[2019-02-20] MEDS: GABAPENTIN 300 MG CAP PO SCH ×4 (08:05→20:23)
[2019-02-20] MEDS: SUCRALFATE 1 GM TAB PO SCH ×2 (08:05→17:01)
[2019-02-20] MEDS: HEPARIN SODIUM,PORCINE 5,000 UNIT/ML 1 ML VIAL SQ SCH ×2 (08:05→17:01)
[2019-02-20] MEDS: PANTOPRAZOLE 40 MG TABLET PO SCH (08:05)
[2019-02-20] MEDS: CHOLECALCIFEROL 1,000 UNIT TAB PO SCH (08:06)
[2019-02-20] MEDS: valACYclovir HCL 1,000 MG TABLET PO SCH ×2 (08:29→20:24)
[2019-02-20] MEDS: NICOTINE 7MG/24HR PATCH TRANSDERM SCH (08:29)
[2019-02-20] MEDS ORDERED: LORATADINE 10 MG TAB PO SCH (09:00)
[2019-02-20] MEDS ORDERED: DULoxetine HCL 20 MG CAPSULE.DR PO SCH (09:00)
--- NOTE | 2019-02-20 10:39 | P.CN ---
Psychiatric Consult - . Consult date: 02/20/19 Consult:: 02/20/19 10:25 IDENTIFYING DATA: This patient is a 53-year-old female who is currently homeless and is has 1 kid and no current income. HISTORY OF PRESENT ILLNESS: The patient was brought into the ED for suicidal ideation with no plan, homelessness, nausea or vomiting fever and urinary urgency Times one week. Patient was admitted to the medical floors for treatment of pyelonephritis. Psychiatry was consulted for depression and suicidal ideation with no plan. Patient was seen at the bedside sleeping however was awoken. She was somewhat argumentative with play writer however was directable during conversation. Patient was preoccupied with her medical comorbidities and her medications. Patient also spoke significantly about her pain which she feels is not under control. Patient claims that she is in a "crappy mood" since September. She states that she is feeling overwhelmed due to being homeless and having to go to shelters and be on a wait list. She states that she cannot go on the top bunk due to her medical problems at a group home. Patient states that she did have some fleeting thoughts of suicidal ideations with no plan however claims that she would not act on it and states that if her medical issues are addressed in the hospital and she will not be suicidal and will be "happier". She admits to mild anxiety. She claims that she has poor sleep due to her restless leg symptoms and pain. At this time patient denies any homical ideations, intent or plan. Patient denies any auditory, visual hallucinations and denies any paranoia or delusions. patient admits to smoking marijuana daily less than 1 g and states that "it's my medication is not a drug". She admits to smoking cigarettes daily and denies any other drugs or alcohol. PAST PSYCHIATRIC HISTORY: she claims that she has a history of anxiety and depression and is currently on Cymbalta 20 mg daily and trazodone 100 mg at night. She denies any suicide attempts in the past. She claims that she was admitted to [facility] inpatient psych facility in 2010 after her . PAST MEDICAL HISTORY: GERD, hypertension, back pain, cervical cancer, pyelonephritis ALLERGIES: [as per EMR]. CHEMICAL DEPENDENCY HISTORY: [as per HPI]. FAMILY PSYCHIATRIC/SUBSTANCE USE HISTORY: [denies] SOCIAL HISTORY: patient states that she is , homeless and has 1 kid and no income. Patient states that she was born and raised in [place] and moved to [place] afterwards. She states that she completed high school and did a degree at [employer] for [employer] and [place]. MENTAL STATUS EXAM: General Appearance: Patient appears to be stated age is thin,alert, argumentative at times, however is directable.fair hygiene and grooming, diaphoresis. Behavior: [Patient is calmly lying in bed without any agitated behavior.]in some distress secondary to pain. Speech: Patient's speech is fluent and nonpressured. irritable tone at times. Mood/Affect: Patient reports their mood is "crappy mood", affect is congruent Suicidality/Homicidality: Patient denies having any homicidal ideation intent or plan. she admits to fleeting thoughts of suicide in the past however no current plan or intent. Suicidal ideation also seems to be in the setting of manipulation for pain medication and related to her medical comorbidity. Perceptions: Patient denies any auditory or visual hallucinations. Though content/process: There is no evidence of any delusional thought content and thought process is linear and goal-directed. argumentative with play writer and med seeking. Memory and concentration: AOX3, grossly intact for the purposes of this session. Can spell "WORLD" backwards Judgment and insight: poor IMPRESSIONS: depressive disorder unspecified Anxiety disorder unspecified cluster C personality traits PLAN: -At this time patient does NOT meet criteria for inpatient psychiatric admission. -Would recommend the following medication changes/additions: we will increase Cymbalta to 20 mg twice a day for depression/pain. Will increase trazodone to 150 mg daily at bedtime. Will add on ropinirole 0.25 mg daily at bedtime for RLS, this can be increased to help manage restless leg symptoms at night. On melatonin for sleep. -would recommend strict limits on med seeking behavior and would refrain from giving any benzodiazepines at this time. patient does have manipulative traits and her suicidal ideations are most likely related to her medical condition and also her pain level and housing situation. Would recommend continuing with pain control and treatment of underlying medical conditions. -can discontinue one-to-one sitter at this time, however nurses to give close observation the patient and reassess if sitter needs to be restarted once again. -Psychiatry will sign off at this point, please contact with any questions. social work to look at appropriate housing options for patient
[2019-02-20 14:11] VITALS: BMI 18.3
--- NOTE | 2019-02-20 17:08 | P.PN ---
Subjective Progress Note Date: 02/20/19 Patient is a 53-year-old female, homeless with a PMH of anxiety, depression, cervical DJD, hypertension, GERD, peptic ulcer disease, and PTSD who presented to the ED with suicidal ideation, poor social situation, and complaints of dysuria with abdominal pain. The patient had reported that she had been having difficulty in her life since she has recently become homeless and has been sleeping on the streets. She reported that due to her abdominal pain, she had not been able to tolerate much food. The patient underwent an extensive evaluation in the emergency room, and was noted to be febrile to 102.9, laboratory evaluation showing WBC count of 11.5, hemoglobin 14.8, platelet is 295, UA consistent with UTI, sodium 139, potassium 4.1, BUN 18, creatinine 0.67, and lipase 69. She was admitted for further management of pyelonephritis. The patient was evaluated by psychiatry for her suicidal ideation who recommended no current one-to-one sitter needed. The patient was seen and examined at the bedside on 02/20. She reported continued suprapubic along with right upper quadrant abdominal pain with radiation to the back. She denied fever, chills, and though endorsed poor appetite with some nausea. Objective - Vital Signs Vital signs: Vital Signs Temp 98.7 F 02/20/19 15:00 Pulse 88 02/20/19 15:00 Resp 17 02/20/19 15:00 BP 110/71 02/20/19 15:00 Pulse Ox 96 02/20/19 15:00 Intake & Output 02/19/19 02/20/19 02/20/19 18:59 06:59 18:59 Intake Total 590 Balance 590 Weight 45.359 kg 45.359 kg 45.359 kg Intake: Oral 590 Other: Voiding Method Toilet # Voids 2 1 - Exam General: Disheveled female, non-toxic, in no acute distress, appears older than stated age, normal weight HEENT: NC/AT, anicteric sclerae, moist conjunctiva, no lid-lag, PERRLA, poor dentition Cardiovascular: S1/S2 wnl, no murmurs, rubs, or gallops Lungs: Clear to auscultation, normal respiratory effort, no accessory muscle use Abdominal: Soft, suprapubic and right upper quadrant tenderness to palpation, non-distended, mild guarding, rebound, or rigidity, right CVA tenderness Skin: Warm, dry Extremities: No edema or contractures Psychiatric: Alert and oriented to person, place and time, appropriate affect Neuro: CN II-XII grossly intact, Strength 5/5 in all 4 extremities, Speech intact, Sensation to light touch grossly intact throughout - Labs CBC & Chem 7: 02/19/19 17:29 02/19/19 17:29 Labs: Abnormal Lab Results - Last 24 Hours (Table) 02/19/19 02/19/19 02/19/19 Range/Units 17:29 17:29 17:29 WBC 11.5 H (3.8-10.6) k/uL MCV 101.6 H (80.0-100.0) fL Neutrophils # 9.7 H (1.3-7.7) k/uL Lymphocytes # 0.8 L (1.0-4.8) k/uL BUN 18 H (7-17) mg/dL Glucose 112 H (74-99) mg/dL Urine Appearance Turbid H (Clear) Urine Protein 2+ H (Negative) Urine Ketones 1+ H (Negative) Urine Blood Moderate H (Negative) Urine Nitrite Positive H (Negative) Ur Leukocyte Esterase Large H (Negative) Urine RBC 16 H (0-5) /hpf Urine WBC >182 H (0-5) /hpf Urine WBC Clumps Many H (None) /hpf Urine Mucus Few H (None) /hpf U Marijuana (THC) Screen (NotDetected) 02/19/19 Range/Units 17:29 WBC (3.8-10.6) k/uL MCV (80.0-100.0) fL Neutrophils # (1.3-7.7) k/uL Lymphocytes # (1.0-4.8) k/uL BUN (7-17) mg/dL Glucose (74-99) mg/dL Urine Appearance (Clear) Urine Protein (Negative) Urine Ketones (Negative) Urine Blood (Negative) Urine Nitrite (Negative) Ur Leukocyte Esterase (Negative) Urine RBC (0-5) /hpf Urine WBC (0-5) /hpf Urine WBC Clumps (None) /hpf Urine Mucus (None) /hpf U Marijuana (THC) Screen Detected H (NotDetected) Microbiology - Last 24 Hours (Table) 02/19/19 17:29 Urine Culture - Preliminary Urine,Clean Catch 02/19/19 17:34 Group A Strep Throat Culture - Preliminary Throat Assessment and Plan Plan: Acute pyelonephritis -Continue with IV ceftriaxone -Follow urine cultures -Follow blood cultures -Antiemetics Depression with suicidal ideation -Psychiatry recommendations appreciated Chronic conditions, depression, chronic pain, peripheral neuropathy, resides syndrome, PTSD, anxiety -Continue with home meds DVT prophylaxis -Heparin Discussed with: Patient Anticipated discharge date: 1-[address] A total of 35 minutes was spent on the care of this complex patient more than 50% of the time was spent in counseling and care coordination.
[2019-02-20] MEDS: ONDANSETRON ODT 4 MG TAB PO PRN (17:15)
[2019-02-20] MEDS: MELATONIN 3 MG TABLET PO SCH (20:23)
[2019-02-20] MEDS: traZODone HCL 50 MG TAB PO SCH (20:24)
[2019-02-20] MEDS: DULoxetine HCL 20 MG CAPSULE.DR PO SCH (20:39)
[2019-02-20] MEDS ORDERED: traZODone HCL 100 MG TAB PO SCH (21:00)
[2019-02-20] MEDS: tiZANidine 4 MG TAB PO PRN (21:47)
[2019-02-20] MEDS: SODIUM CHLORIDE 0.9% 1,000 ML IV SCH (22:15)
[2019-02-21] MEDS: HEPARIN SODIUM,PORCINE 5,000 UNIT/ML 1 ML VIAL SQ SCH ×3 (00:43→17:54)
[2019-02-21] MEDS: GABAPENTIN 300 MG CAP PO SCH ×4 (07:59→20:48)
[2019-02-21] MEDS: ASCORBIC ACID 500 MG TAB PO SCH (07:59)
[2019-02-21] MEDS: CHOLECALCIFEROL 1,000 UNIT TAB PO SCH (07:59)
[2019-02-21] MEDS: SUCRALFATE 1 GM TAB PO SCH ×2 (08:00→17:54)
[2019-02-21] MEDS: FAMOTIDINE 20 MG TAB PO SCH (08:00)
[2019-02-21] MEDS: PANTOPRAZOLE 40 MG TABLET PO SCH (08:00)
[2019-02-21] MEDS: METOPROLOL TARTRATE 25 MG TAB PO SCH ×2 (08:01→21:03)
[2019-02-21] MEDS: valACYclovir HCL 1,000 MG TABLET PO SCH ×2 (08:01→20:49)
[2019-02-21] MEDS: DULoxetine HCL 20 MG CAPSULE.DR PO SCH ×2 (08:01→20:49)
[2019-02-21] MEDS: NICOTINE 7MG/24HR PATCH TRANSDERM SCH (08:02)
[2019-02-21 09:12] LABS: HCT 34.4 % (34.0-46.0); MCH 34.2 pg (25.0-35.0); MCV 103.6 fL (80.0-100.0); Macrocytosis Slight; Platelet Count 170 k/uL (150-450); RBC 3.32 m/uL (3.80-5.40); RDW 12.7 % (11.5-15.5); WBC 5.9 k/uL (3.8-10.6)
[2019-02-21 09:15] LABS: HGB 11.4 gm/dL (11.4-16.0)
[2019-02-21] MEDS ORDERED: IBUPROFEN 600 MG TAB PO STA (11:26)
--- NOTE | 2019-02-21 15:28 | P.PN ---
Subjective Progress Note Date: 02/21/19 Patient is a 53-year-old female, homeless with a PMH of anxiety, depression, cervical DJD, hypertension, GERD, peptic ulcer disease, and PTSD who presented to the ED with suicidal ideation, poor social situation, and complaints of dysuria with abdominal pain. The patient had reported that she had been having difficulty in her life since she has recently become homeless and has been sleeping on the streets. She reported that due to her abdominal pain, she had not been able to tolerate much food. The patient underwent an extensive evaluation in the emergency room, and was noted to be febrile to 102.9, laboratory evaluation showing WBC count of 11.5, hemoglobin 14.8, platelet is 295, UA consistent with UTI, sodium 139, potassium 4.1, BUN 18, creatinine 0.67, and lipase 69. She was admitted for further management of pyelonephritis. The patient was evaluated by psychiatry for her suicidal ideation who recommended no current one-to-one sitter needed. The patient was seen and examined at the bedside on 02/21. The patient continues to have suprapubic and R flank pain. She denied fever, chills, nausea, or vomiting. Objective - Vital Signs Vital signs: Vital Signs Temp 98.6 F 02/21/19 07:00 Pulse 76 02/21/19 07:00 Resp 16 02/21/19 07:00 BP 110/71 02/21/19 07:00 Pulse Ox 98 02/21/19 07:00 Intake & Output 02/20/19 02/21/19 02/21/19 18:59 06:59 18:59 Intake Total 590 Balance 590 Weight 45.359 kg Intake: Oral 590 Other: # Voids 1 3 2 - Exam General: Disheveled female, non-toxic, in no acute distress, appears older than stated age, normal weight HEENT: NC/AT, anicteric sclerae, moist conjunctiva, no lid-lag, PERRLA, poor dentition Cardiovascular: S1/S2 wnl, no murmurs, rubs, or gallops Lungs: Clear to auscultation, normal respiratory effort, no accessory muscle use Abdominal: Soft, suprapubic and right upper quadrant tenderness to palpation, non-distended, mild guarding, rebound, or rigidity, right CVA tenderness Skin: Warm, dry Extremities: No edema or contractures Psychiatric: Alert and oriented to person, place and time, appropriate affect Neuro: CN II-XII grossly intact, Strength 5/5 in all 4 extremities, Speech intact, Sensation to light touch grossly intact throughout - Labs CBC & Chem 7: 02/21/19 08:46 02/19/19 17:29 Labs: Abnormal Lab Results - Last 24 Hours (Table) 02/21/19 Range/Units 08:46 RBC 3.32 L (3.80-5.40) m/uL MCV 103.6 H (80.0-100.0) fL Microbiology - Last 24 Hours (Table) 02/19/19 17:34 Group A Strep Throat Culture - Final Throat 02/19/19 17:29 Urine Culture - Preliminary Urine,Clean Catch Gram Neg Bacilli 02/19/19 19:08 Blood Culture - Preliminary Blood No Growth after 24 hours Assessment and Plan Plan: Acute pyelonephritis -Continue with IV ceftriaxone -Follow urine cultures -Follow blood cultures -Antiemetics -Will avoid IV narcotics due to history of substance use and drug-seeking behavior Depression with suicidal ideation -Psychiatry recommendations appreciated Chronic conditions, depression, chronic pain, peripheral neuropathy, resides syndrome, PTSD, anxiety -Continue with home meds DVT prophylaxis -Heparin Discussed with: Patient Anticipated discharge date: 1-[address] A total of 35 minutes was spent on the care of this complex patient more than 50% of the time was spent in counseling and care coordination.
[2019-02-21] MEDS: ONDANSETRON ODT 4 MG TAB PO PRN (15:35)
[2019-02-21] MEDS: LORATADINE 10 MG TAB PO SCH (20:48)
[2019-02-21] MEDS: MELATONIN 3 MG TABLET PO SCH (20:48)
[2019-02-21] MEDS: traZODone HCL 50 MG TAB PO SCH (20:48)
[2019-02-21] MEDS: SODIUM CHLORIDE 0.9% 1,000 ML IV SCH (21:34)
[2019-02-22] MEDS: HEPARIN SODIUM,PORCINE 5,000 UNIT/ML 1 ML VIAL SQ SCH ×3 (00:37→16:02)
[2019-02-22] MEDS: ACETAMINOPHEN TAB 325 MG TAB PO PRN (03:37)
[2019-02-22] MEDS: NICOTINE 7MG/24HR PATCH TRANSDERM SCH (08:07)
[2019-02-22] MEDS: CHOLECALCIFEROL 1,000 UNIT TAB PO SCH (08:07)
[2019-02-22] MEDS: valACYclovir HCL 1,000 MG TABLET PO SCH ×2 (08:07→20:15)
[2019-02-22] MEDS: GABAPENTIN 300 MG CAP PO SCH ×4 (08:07→21:58)
[2019-02-22] MEDS: SUCRALFATE 1 GM TAB PO SCH ×3 (08:07→16:03)
[2019-02-22] MEDS: DULoxetine HCL 20 MG CAPSULE.DR PO SCH ×2 (08:08→20:15)
[2019-02-22] MEDS: METOPROLOL TARTRATE 25 MG TAB PO SCH ×2 (08:08→20:16)
[2019-02-22] MEDS: ASCORBIC ACID 500 MG TAB PO SCH (08:08)
[2019-02-22] MEDS: PANTOPRAZOLE 40 MG TABLET PO SCH (09:56)
[2019-02-22] MEDS: FAMOTIDINE 20 MG TAB PO SCH (09:57)
--- NOTE | 2019-02-22 17:52 | P.PN ---
Subjective Progress Note Date: 02/22/19 Principal diagnosis: Bilateral polynephritis Patient was seen and examined. No acute events overnight. Patient reports mild dysuria. She reports flank pain left greater than right. Pain is well- controlled with current medication. She denies any chest pain, shortness of breath or palpitations. No nausea or vomiting. No fever or chills. Objective - Vital Signs Vital signs: Vital Signs Temp 98.5 F 02/22/19 15:00 Pulse 62 02/22/19 15:00 Resp 12 02/22/19 15:00 BP 125/74 02/22/19 15:00 Pulse Ox 97 02/22/19 15:00 Intake & Output 02/21/19 02/22/19 02/22/19 18:59 06:59 18:59 Intake Total 500 Balance 500 Intake: Oral 500 Other: Voiding Method Toilet Toilet # Voids 2 1 2 - Exam General: [non toxic], [no distress], [appears at stated age] Derm: [warm], [dry] Head: [atraumatic], [normocephalic], [symmetric] Eyes: [EOMI], [no lid lag], [anicteric sclera] Mouth: [no lip lesion], [mucus membranes moist] Cardiovascular: [S1S2 reg], [no murmur], [positive posterior tibial pulse bilateral], Lungs: [CTA bilateral], [no rhonchi, no rales] , [no accessory muscle use] Abdominal: [soft], [ nontender to palpation], [no guarding], [no appreciable organomegaly], [bilateral CVA tenderness] Ext: [no gross muscle atrophy], [no edema], [no contractures] Neuro: [no focal neuro deficits] Psych: [Alert], [oriented], [appropriate affect] - Labs CBC & Chem 7: 02/21/19 08:46 02/19/19 17:29 Labs: Microbiology - Last 24 Hours (Table) 02/19/19 17:29 Urine Culture - Final Urine,Clean Catch Escherichia coli 02/19/19 19:08 Blood Culture - Preliminary Blood No Growth after 48 hours Assessment and Plan Assessment: Acute pyelonephritis Depression with suicidal ideation Macrocytosis Homelessness Chronic conditions: Depression, peripheral neuropathy, PTSD and anxiety Urine culture back with bowens sensitive E. coli. We will continue Rocephin and transition to oral antibiotics for discharge tomorrow. Psychiatry has evaluated the patient and cleared the patient for discharge. Social work has been consulted and patient has been given resources for shelters. Add B12 and folic acid for macrocytosis. Plans to DC the patient tomorrow to a [facility] as patient has no current arrangements for housing. I feel it is too late to discharge the patient safely today.
[2019-02-22] MEDS: SODIUM CHLORIDE 0.9% 1,000 ML IV SCH (18:03)
[2019-02-22] MEDS: LORATADINE 10 MG TAB PO SCH (20:15)
[2019-02-22] MEDS: MELATONIN 3 MG TABLET PO SCH (20:15)
[2019-02-22] MEDS: traZODone HCL 50 MG TAB PO SCH (21:58)
[2019-02-23] MEDS: HEPARIN SODIUM,PORCINE 5,000 UNIT/ML 1 ML VIAL SQ SCH ×2 (00:05→08:04)
[2019-02-23] MEDS: ACETAMINOPHEN TAB 325 MG TAB PO PRN (07:59)
[2019-02-23] MEDS: SUCRALFATE 1 GM TAB PO SCH (07:59)
[2019-02-23 08:07] VITALS: BP 145/85; PULSE 65; RESP 16; TEMP 98.4
[2019-02-23] MEDS: CHOLECALCIFEROL 1,000 UNIT TAB PO SCH (09:26)
[2019-02-23] MEDS: METOPROLOL TARTRATE 25 MG TAB PO SCH (09:26)
[2019-02-23] MEDS: GABAPENTIN 300 MG CAP PO SCH ×2 (09:26→13:59)
[2019-02-23] MEDS: ASCORBIC ACID 500 MG TAB PO SCH (09:26)
[2019-02-23] MEDS: DULoxetine HCL 20 MG CAPSULE.DR PO SCH (09:27)
[2019-02-23] MEDS: NICOTINE 7MG/24HR PATCH TRANSDERM SCH (09:27)
[2019-02-23] MEDS: valACYclovir HCL 1,000 MG TABLET PO SCH (09:27)
[2019-02-23] MEDS: FAMOTIDINE 20 MG TAB PO SCH (11:17)
[2019-02-23] MEDS: PANTOPRAZOLE 40 MG TABLET PO SCH (11:17)
[2019-02-23 11:42] LABS: Folate, Serum 19.7 ng/mL
--- NOTE | 2019-02-23 12:37 | CDI ---
Documentation Clarification Form Date: 02/23/2019 12:28:09 PM From: Ivette ZimmermanWolfeMARIE dougherty, CCDS Admit Date: 02/21/2019 02:11:00 PM Patient Name: Zoe Almonte Visit Number: [id number] Discharge Date: ATTENTION: The Clinical Documentation Specialists (CDI) and [facility] Coding Staff appreciate your assistance in clarifying documentation. Please respond to the clarification below the line at the bottom and electronically sign. The CDI & [facility] Coding staff will review the response and follow-up if needed. Please note: Queries are made part of the Legal Health Record. If you have any questions, please contact the author of this message via ITS. Dr. Kristina Garcia: The patient presented with the following: Urinary symptoms, rt flank & low back pain, suicidal ideations & is homeless. Diagnosed with "Sepsis" per History & Physical with pyelonephritis. Sepsis is not documented in the subsequent progress notes. History/Risk Factors: Previously homeless, GERD, IBS, PUD, Polyneuropathy, OA & low back pain with sciatica, Raynaud's syndrome, RLS, Migraines, PTSD, Depression, Anxiety, Smoker. History of cervical cancer. Clinical Indicators: Presented as above, urinary urgency & pain x1 week, cough, congestion & runny nose. VS: T 102.3^, P 129^ LAB: WBC 11.5^, Neut 9.7^, Lactic Acid (1.1) Urine culture: e coli Blood culture: preliminary: neg >72 hrs. Group A strep throat: final: negative. Treatment: IV fluid bolus, IV Rocephin, IV fluid rate 100. Psych consult. In your professional opinion, please clarify if these findings signify one of the following conditions, whether the condition is POA, and cause, if known: Sepsis ruled out Sepsis ruled in, please specify cause: Other, please specify Unable to determine Present on Admission: Yes or No Identify the (suspected) organism (Last Revision: May 2017) sepsis present on admission MTDD
--- NOTE | 2019-02-23 13:30 | P.DS ---
Providers Date of admission: 02/21/19 14:11 Expected date of discharge: 02/23/19 Attending physician: Tami Newell MD Consults: 02/19/19 18:55 Consult Physician Routine Consulting Provider: Johny Coto Consult Reason/Comments: suicidal Do you want consulting provider notified?: Yes Primary care physician: Stated None Hospital Course: Patient is a 53-year-old female, homeless with a PMH of anxiety, depression, cervical DJD, hypertension, GERD, peptic ulcer disease, and PTSD who presented to the ED with suicidal ideation, poor social situation, and complaints of dysuria with abdominal pain. The patient had reported that she had been having difficulty in her life since she has recently become homeless and has been sleeping on the streets. She reported that due to her abdominal pain, she had not been able to tolerate much food. The patient underwent an extensive evaluation in the emergency room, and was noted to be febrile to 102.9, laboratory evaluation showing WBC count of 11.5, hemoglobin 14.8, platelet is 295, UA consistent with UTI, sodium 139, potassium 4.1, BUN 18, creatinine 0.67, and lipase 69. She was admitted for further management of pyelonephritis. The patient was evaluated by psychiatry for her suicidal ideation who recommended no current one-to-one sitter needed. The patient was seen and examined at the bedside on 02/21. The patient continues to have suprapubic and R flank pain. She denied fever, chills, nausea, or vomiting. Psychiatry evaluated the patient include the patient for discharge. Her urine culture came back positive with E. coli that was pansensitive. Patient reported no adverse reactions to Bactrim in the past. She complains of mild dysuria at this time. She denies any abdominal pain. No nausea or vomiting. No fever or chills. No chest pain, shortness breath or palpitations. General: [non toxic], [no distress], [appears at stated age] Derm: [warm], [dry] Head: [atraumatic], [normocephalic], [symmetric] Eyes: [EOMI], [no lid lag], [anicteric sclera] Mouth: [no lip lesion], [mucus membranes moist] Cardiovascular: [S1S2 reg], [no murmur], [positive posterior tibial pulse bilateral], Lungs: [CTA bilateral], [no rhonchi, no rales] , [no accessory muscle use] Abdominal: [soft], [ nontender to palpation], [no guarding], [no appreciable organomegaly], [bilateral CVA tenderness] Ext: [no gross muscle atrophy], [no edema], [no contractures] Neuro: [no focal neuro deficits] Psych: [Alert], [oriented], [appropriate affect] Acute pyelonephritis with resolved sepsis Depression with suicidal ideation Macrocytosis Homelessness Chronic conditions: Depression, peripheral neuropathy, PTSD and anxiety We'll discharge the patient home with 3 more days of Bactrim. Her blood cultures have been negative at 72 hours. Psychiatry has evaluated the patient and cleared the patient for discharge. Social work has been consulted and patient has been given resources for shelters. B12 and folic acid within normal limits. Plans to DC the patient to assisted. Patient Condition at Discharge: Stable Plan - Discharge Summary Discharge Rx Participant: Yes New Discharge Prescriptions: New Sulfamethox-Tmp 800-160Mg [Bactrim DS 800-160 mg] 1 tab PO Q12HR #6 tab DULoxetine HCL [Cymbalta] 20 mg PO BID #60 capsule. traZODone HCL [Desyrel] 150 mg PO HS #30 tab rOPINIRole HCL [Requip] 0.25 mg PO HS #30 tab Continue Loratadine [Claritin] 10 mg PO DAILY #30 tab Metoprolol Tartrate [Lopressor] 25 mg PO BID #14 tablet Gabapentin [Neurontin] 600 mg PO QID Famotidine [Pepcid] 20 mg PO DAILY Esomeprazole Magnesium [NexIUM] 20 mg PO DAILY Hyoscyamine Sulfate [Hyoscyamine Sulfate SL] 0.125 mg SL Q12H PRN PRN Reason: IBS Aspirin/Acetaminophen/Caffeine [Excedrin Migraine Caplet] 1 tab PO Q12H PRN PRN Reason: Migraine Headache valACYclovir HCL [Valtrex] 1,000 mg PO BID Nicotine 7Mg/24Hr Patch [Habitrol] 1 patch TRANSDERM DAILY Cholecalciferol [Vitamin D3 (25 Mcg = 1000 Iu)] 3,000 unit PO DAILY Rizatriptan Benzoate [Maxalt [employer]] 10 mg PO DAILY PRN PRN Reason: Migraine Headache LORazepam [Ativan] 1 mg PO HS PRN PRN Reason: restlessness Ascorbic Acid [Vitamin C] 500 mg PO DAILY tiZANidine HCL [Zanaflex] 2 - 4 mg PO Q8H PRN PRN Reason: Muscle Spasm Lidocaine 4% Cream [Lmx 4] 1 applic TOPICAL DAILY Ondansetron Odt [Zofran ODT] 8 mg PO Q8HR PRN PRN Reason: Nausea Sucralfate [Carafate] 1 gm PO BID Discontinued traZODone HCL [Desyrel] 100 mg PO HS DULoxetine HCL [Cymbalta] 20 mg PO DAILY Discharge Medication List Loratadine [Claritin] 10 mg PO DAILY #30 tab 05/17/14 [Rx] Metoprolol Tartrate [Lopressor] 25 mg PO BID #14 tablet 05/17/14 [Rx] Gabapentin [Neurontin] 600 mg PO QID 06/20/16 [History] Aspirin/Acetaminophen/Caffeine [Excedrin Migraine Caplet] 1 tab PO Q12H PRN 05/12/18 [History] Cholecalciferol [Vitamin D3 (25 Mcg = 1000 Iu)] 3,000 unit PO DAILY 05/12/18 [History] Esomeprazole Magnesium [NexIUM] 20 mg PO DAILY 05/12/18 [History] Famotidine [Pepcid] 20 mg PO DAILY 05/12/18 [History] Hyoscyamine Sulfate [Hyoscyamine Sulfate SL] 0.125 mg SL Q12H PRN 05/12/18 [History] LORazepam [Ativan] 1 mg PO HS PRN 05/12/18 [History] Nicotine 7Mg/24Hr Patch [Habitrol] 1 patch TRANSDERM DAILY 05/12/18 [History] Rizatriptan Benzoate [Maxalt [employer]THROP[employer]] 10 mg PO DAILY PRN 05/12/18 [History] valACYclovir HCL [Valtrex] 1,000 mg PO BID 05/12/18 [History] Ascorbic Acid [Vitamin C] 500 mg PO DAILY 02/19/19 [History] Lidocaine 4% Cream [Lmx 4] 1 applic TOPICAL DAILY 02/19/19 [History] Ondansetron Odt [Zofran ODT] 8 mg PO Q8HR PRN 02/19/19 [History] Sucralfate [Carafate] 1 gm PO BID 02/19/19 [History] tiZANidine HCL [Zanaflex] 2 - 4 mg PO Q8H PRN 02/19/19 [History] DULoxetine HCL [Cymbalta] 20 mg PO BID #60 capsule.dr 02/23/19 [Rx] Sulfamethox-Tmp 800-160Mg [Bactrim DS 800-160 mg] 1 tab PO Q12HR #6 tab 02/23/19 [Rx] rOPINIRole HCL [Requip] 0.25 mg PO HS #30 tab 02/23/19 [Rx] traZODone HCL [Desyrel] 150 mg PO HS #30 tab 02/23/19 [Rx] Follow up Appointment(s)/Referral(s): None,Stated [Primary Care Provider] - 1-2 days Johny Coto MD [Medical Doctor] - 1 Week Activity/Diet/Wound Care/Special Instructions: Diet: Regular Follow-up PCP within 3 days of discharge. Follow-up psychiatry within 1 week of discharge. Take all medications as advised. Discharge Disposition: HOME SELF-CARE
== END 2019-02-23 15:33 | disposition home or self-care (01) | DRG 872 ==
LOC: EC 16:38 → 4SSUR 19:10 → OBSVTOIN 02-21 14:11
PROVIDERS: ADMIT Internal Medicine; ATTEND Internal Medicine
DX: A41.9 Sepsis, unspecified organism (principal); N10 Acute pyelonephritis; R45.851 Suicidal ideations; M50.221 Other cervical disc displacement at C4-C5 level; G89.29 Other chronic pain; F32.9 Major depressive disorder, single episode, unspecified; I73.00 Raynaud's syndrome without gangrene; G62.9 Polyneuropathy, unspecified; F43.10 Post-traumatic stress disorder, unspecified; F41.9 Anxiety disorder, unspecified; K58.9 Irritable bowel syndrome, unspecified; I10 Essential (primary) hypertension; F17.210 Nicotine dependence, cigarettes, uncomplicated; K21.9 Gastro-esophageal reflux disease without esophagitis; M47.812 Spondylosis without myelopathy or radiculopathy, cervical region; J44.9 Chronic obstructive pulmonary disease, unspecified; B96.20 Unspecified Escherichia coli [E. coli] as the cause of diseases classified elsewhere; D75.89 Other specified diseases of blood and blood-forming organs; F60.89 Other specific personality disorders; G25.81 Restless legs syndrome; G43.909 Migraine, unspecified, not intractable, without status migrainosus; Z71.6 Tobacco abuse counseling; Z71.3 Dietary counseling and surveillance; Z79.899 Other long term (current) drug therapy; Z76.5 Malingerer [conscious simulation]; Z85.41 Personal history of malignant neoplasm of cervix uteri; Z87.11 Personal history of peptic ulcer disease; Z90.49 Acquired absence of other specified parts of digestive tract; Z59.0 Homelessness; Z98.890 Other specified postprocedural states; Z86.19 Personal history of other infectious and parasitic diseases; Z87.19 Personal history of other diseases of the digestive system; Z88.1 Allergy status to other antibiotic agents; Z88.3 Allergy status to other anti-infective agents; Z88.5 Allergy status to narcotic agent; Z88.8 Allergy status to other drugs, medicaments and biological substances
CPT/HCPCS: 36415; 71046; 80048; 80306; 81001; 82075; 82607; 82746; 83605; 83690; 83735; 85025; 85027; 87040; 87077; 87081; 87086; 87186; 87430; 87502; 93005; 96361; 96374; 99285

== ENCOUNTER 2020-12-02 16:47 | Emergency (ER) | payer MEDICARE, OTHER ==
[2020-12-02 17:56] VITALS: BP 141/80; PULSE 63; RESP 20; TEMP 98.5
--- NOTE | 2020-12-02 18:24 | XR ---
EXAMINATION TYPE: XR chest 2V DATE OF EXAM: 12/02/2020 COMPARISON: Chest radiograph 02/19/2019 HISTORY: Flu symptoms, generalized myalgias TECHNIQUE: Frontal and lateral views of the chest are obtained. FINDINGS: Lungs appear hyperaerated. There is no focal air space opacity, pleural effusion, or pneumo thorax seen. The cardiac silhouette size is within normal limits. The osseous structures are intac t. IMPRESSION: No acute cardiopulmonary process.
--- NOTE | 2020-12-02 19:19 | ED ---
URI HPI - General Chief Complaint: Upper Respiratory Infection Stated Complaint: flu symptoms Time Seen by Provider: 12/02/20 18:27 Source: patient, RN notes reviewed Mode of arrival: ambulatory Limitations: no limitations - History of Present Illness Initial Comments: Patient is a 55-year-old female that presents emergency department complaining of upper respiratory tract symptoms such as a cough. She notes that she hasn't if at home that was recently positive RSV. She wanted to get tested to make sure she didn't have Covid. She was otherwise well-appearing patient was she does have a history of smoking but is recently cut back quite significant. She denied any chest pain short of breath headache nausea vomiting diarrhea constipation fever fatigue chills. - Related Data Home Medications Medication Instructions Recorded Confirmed Gabapentin [Neurontin] 600 mg PO QID 06/20/16 02/19/19 Aspirin/Acetaminophen/Caffeine 1 tab PO Q12H PRN 05/12/18 02/19/19 [Excedrin Migraine Caplet] Cholecalciferol [Vitamin D3 (25 3,000 unit PO DAILY 05/12/18 02/19/19 Mcg = 1000 Iu)] Esomeprazole Magnesium [NexIUM] 20 mg PO DAILY 05/12/18 02/19/19 Famotidine [Pepcid] 20 mg PO DAILY 05/12/18 02/19/19 Hyoscyamine Sulfate [Hyoscyamine 0.125 mg SL Q12H PRN 05/12/18 02/19/19 Sulfate SL] LORazepam [Ativan] 1 mg PO HS PRN 05/12/18 02/19/19 Nicotine 7Mg/24Hr Patch [Habitrol] 1 patch TRANSDERM DAILY 05/12/18 02/19/19 Rizatriptan Benzoate [Maxalt [employer]] 10 mg PO DAILY PRN 05/12/18 02/19/19 valACYclovir HCL [Valtrex] 1,000 mg PO BID 05/12/18 02/19/19 Ascorbic Acid [Vitamin C] 500 mg PO DAILY 02/19/19 02/19/19 Lidocaine 4% Cream [Lmx 4] 1 applic TOPICAL DAILY 02/19/19 02/19/19 Ondansetron Odt [Zofran ODT] 8 mg PO Q8HR PRN 02/19/19 02/19/19 Sucralfate [Carafate] 1 gm PO BID 02/19/19 02/19/19 tiZANidine HCL [Zanaflex] 2 - 4 mg PO Q8H PRN 02/19/19 02/19/19 Previous Rx's Medication Instructions Recorded Loratadine [Claritin] 10 mg PO DAILY #30 tab 05/17/14 Metoprolol Tartrate [Lopressor] 25 mg PO BID #14 tablet 05/17/14 DULoxetine HCL [Cymbalta] 20 mg PO BID #60 capsule. 02/23/19 Sulfamethox-Tmp 800-160Mg [Bactrim 1 tab PO Q12HR #6 tab 02/23/19 DS 800-160 mg] rOPINIRole HCL [Requip] 0.25 mg PO HS #30 tab 02/23/19 traZODone HCL [Desyrel] 150 mg PO HS #30 tab 02/23/19 Allergies Allergy/AdvReac Type Severity Reaction Status Date / Time metoclopramide HCl Allergy Anaphylaxis Verified 12/02/20 17:56 [From Reglan] morphine Allergy Anaphylaxis Verified 12/02/20 17:56 prochlorperazine edisylate Allergy Anaphylaxis Verified 12/02/20 17:56 [From Compazine] prochlorperazine maleate Allergy Anaphylaxis Verified 12/02/20 17:56 [From Compazine] Tetracyclines Allergy Anaphylaxis Verified 12/02/20 17:56 levofloxacin [From Levaquin] AdvReac Nausea & Verified 12/02/20 17:56 Vomiting Review of Systems ROS Statement: Those systems with pertinent positive or pertinent negative responses have been documented in the HPI. ROS Other: All systems not noted in ROS Statement are negative. Past Medical History Past Medical History: Cancer, GERD/Reflux, Hypertension, Pneumonia Additional Past Medical History / Comment(s): pancreatitis, IBS, neuropathy, Raynauds, back PAIN, migraines, herniated disks C4 and C5; Cervical cancer (in remission), herpetic filemon History of Any Multi-Drug Resistant Organisms: None Reported Past Surgical History: Cholecystectomy, Tonsillectomy Additional Past Surgical History / Comment(s): neuroma, cervical coninition, permanent stitches in common bile duct and pancreatic, and sphincter of Oddi duct Past Anesthesia/Blood Transfusion Reactions: Postoperative Nausea & Vomiting (PONV) Additional Past Anesthesia/Blood Transfusion Reaction / Comment(s): pt states she has woken up in the middle of surgery before Past Psychological History: Anxiety, Depression, PTSD Smoking Status: Light tobacco smoker Past Alcohol Use History: None Reported Past Drug Use History: Marijuana - Past Family History Mother Family Medical History: Cancer, Hypertension Additional Family Medical History / Comment(s): ovarian cancer with mets to the lymph nodes Father Family Medical History: Cancer, Hypertension Additional Family Medical History / Comment(s): Lung CA General Exam Limitations: no limitations General appearance: alert, in no apparent distress Head exam: Present: atraumatic, normocephalic, normal inspection Eye exam: Present: normal appearance, PERRL, EOMI. Absent: scleral icterus, conjunctival injection, periorbital swelling ENT exam: Present: normal exam, mucous membranes moist Neck exam: Present: normal inspection Respiratory exam: Present: normal lung sounds bilaterally. Absent: respiratory distress, wheezes, rales, rhonchi, stridor Cardiovascular Exam: Present: regular rate, normal rhythm, normal heart sounds. Absent: systolic murmur, diastolic murmur, rubs, gallop, clicks Extremities exam: Present: normal inspection, full ROM, normal capillary refill. Absent: tenderness, pedal edema, joint swelling, calf tenderness Neurological exam: Present: alert, oriented X3 Psychiatric exam: Present: normal affect, normal mood Skin exam: Present: warm, dry, intact, normal color. Absent: rash Course Vital Signs 12/02/20 17:51 Temperature 98.5 F Pulse Rate 63 Respiratory 20 Rate Blood Pressure 141/80 O2 Sat by Pulse 98 Oximetry Medical Decision Making - Medical Decision Making 55-year-old female with upper respiratory tract symptoms and RSV positive if it home. Cepheid 4 Plex, chest x-ray ordered. Cepheid 4 Plex positive for RSV. Chest x-ray: No acute card up on her process. Patient is agreeable with discharge home with conservative management and follow-up primary care. Case discussed with Dr. Patino, patient can discharge home. - Lab Data Lab Results 12/02/20 Range/Units 18:00 Influenza Type A (PCR) Not Detected (Not Detectd) Influenza Type B (PCR) Not Detected (Not Detectd) RSV (PCR) Detected A (Not Detectd) SARS-CoV-2 (PCR) Not Detected (Not Detectd) - Radiology Data Radiology results: report reviewed, image reviewed Chest x-ray: No acute cardiopulmonary process. Disposition Clinical Impression: Respiratory syncytial virus Disposition: HOME SELF-CARE Condition: Stable Instructions (If sedation given, give patient instructions): Upper Respiratory Infection (ED) Additional Instructions: Please return to the Emergency Department if symptoms worsen or any other conc erns. Follow-up with primary care 1-2 days. Take Tylenol and Motrin alternating them every 3 hours for fever or pain. Is patient prescribed a controlled substance at d/c from ED?: No Referrals: Caroline Diamond MD [Primary Care Provider] - 1-2 days Time of Disposition: 19:18
== END 2020-12-02 20:00 | disposition home or self-care (01) ==
LOC: EC 16:47
DX: B97.4 Respiratory syncytial virus as the cause of diseases classified elsewhere (principal); I10 Essential (primary) hypertension; K21.9 Gastro-esophageal reflux disease without esophagitis; F41.9 Anxiety disorder, unspecified; F32.9 Major depressive disorder, single episode, unspecified; F43.12 Post-traumatic stress disorder, chronic; F17.290 Nicotine dependence, other tobacco product, uncomplicated; F12.90 Cannabis use, unspecified, uncomplicated; Z20.822 Contact with and (suspected) exposure to COVID-19; Z79.82 Long term (current) use of aspirin; Z88.5 Allergy status to narcotic agent; Z88.1 Allergy status to other antibiotic agents; Z86.018 Personal history of other benign neoplasm; Z85.41 Personal history of malignant neoplasm of cervix uteri; Z90.49 Acquired absence of other specified parts of digestive tract; Z90.89 Acquired absence of other organs
CPT/HCPCS: 71046; 87636; 99283

== ENCOUNTER 2021-10-14 14:17 | Emergency (ER) | payer MEDICARE, OTHER ==
[2021-10-14 15:06] VITALS: TEMP 98.5
[2021-10-14 18:19] LABS: Appearance,Urine Clear (Clear); Bilirubin,Urine Negative (Negative); Blood,Urine Negative (Negative); Color,Urine Yellow; Glucose,Urine (UA) Negative (Negative); Ketones,Urine Negative (Negative); Leukocyte Esterase,Urine Trace (Negative); Mucus,Urine Occasional /hpf; Nitrite,Urine Negative (Negative); PH, Urine 6.5 (5.0-8.0); Protein,Urine Trace (Negative); RBC,Urine 12 /hpf (0-5); Specific Gravity,Urine 1.026 (1.001-1.035); Squamous Epithelial Cell,Urine <1 /hpf (0-4); WBC,Urine 1 /hpf (0-5)
[2021-10-14] MEDS ORDERED: HYDROmorphone 1 MG/ML 1 ML SYRINGE IVP STA (19:07)
[2021-10-14] MEDS ORDERED: SODIUM CHLORIDE 0.9% 1,000 ML IV ONE (19:07)
[2021-10-14] MEDS ORDERED: ONDANSETRON 4 MG/2 ML VIAL IVP STA (19:07)
[2021-10-14 19:10] LABS: Basophils # (A) 0.1 k/uL (0-0.2); Basophils % (A) 1 %; Eosinophils # (A) 0.1 k/uL (0-0.7); Eosinophils % (A) 1 %; HCT 40.4 % (34.0-46.0); HGB 13.8 gm/dL (11.4-16.0); Lymphocytes # (A) 2.7 k/uL (1.0-4.8); Lymphocytes % (A) 37 %; MCV 99.9 fL (80.0-100.0); Mean Platelet Volume 7.8; Monocytes # (A) 0.3 k/uL (0-1.0); Monocytes % (A) 4 %; Neutrophils % (A) 55 %; Platelet Count 360 k/uL (150-450); RBC 4.05 m/uL (3.80-5.40); RDW 13.2 % (11.5-15.5); WBC 7.3 k/uL (3.8-10.6)
[2021-10-14 19:19] LABS: ALT 30 U/L (4-34); AST 32 U/L (14-36); African American GFR (CKD) >90 (>60 ml/min/1.73 sqM); Albumin 4.7 g/dL (3.5-5.0); Alkaline Phosphatase 88 U/L (38-126); Anion Gap 13 mmol/L; Blood Urea Nitrogen 17 mg/dL (7-17); Calcium 9.7 mg/dL (8.4-10.2); Carbon Dioxide 22 mmol/L (22-30); Chloride 105 mmol/L (98-107); Glucose 90 mg/dL (74-99); Lipase 92 U/L (23-300); Magnesium 1.7 mg/dL (1.6-2.3); Non-African American GFR(CKD) >90 (>60 ml/min/1.73 sqM); Potassium 3.8 mmol/L (3.5-5.1); Sodium 140 mmol/L (137-145); Total Bilirubin 0.4 mg/dL (0.2-1.3); Total Protein 7.5 g/dL (6.3-8.2)
--- NOTE | 2021-10-14 20:21 | ED ---
Abdominal Pain HPI - General Chief Complaint: Abdominal Pain Stated Complaint: Abd pain Time Seen by Provider: 10/14/21 19:00 Source: patient Mode of arrival: wheelchair Limitations: no limitations - History of Present Illness Initial Comments: 55-year-old female past history of chronic pancreatitis, IBS who presents to emergency room with reported epigastric pain. Patient states that for the past few days she has had increased nausea, vomiting and epigastric abdominal pain. States her symptoms are consistent with her recurrent pancreatitis. She has been to several facilities for treatment of her pancreatitis. She did have a stent placed in her sphincter of Lito which failed. She then had sutures performed however states that when she is stressed that she will have pain. Patient does not have anything for pain or nausea at home. She denies any fevers. No changes in her bowel or bladder habits. No other alleviating, precipitating or modifying factors - Related Data Home Medications Medication Instructions Recorded Confirmed Aspirin/Acetaminophen/Caffeine 1 tab PO Q12H PRN 05/12/18 03/27/21 [Excedrin Migraine Caplet] Ondansetron Odt [Zofran ODT] 4 - 8 mg PO Q8HR PRN 02/19/19 03/27/21 DULoxetine HCL [Cymbalta] 20 mg PO DAILY 03/27/21 03/27/21 Gabapentin [Neurontin] 800 mg PO QID 03/27/21 03/27/21 Melatonin [Melatonin ER] 40 mg PO HS 03/27/21 03/27/21 Multivitamins, Thera [Multivitamin 1 tab PO DAILY 03/27/21 03/27/21 (formulary)] guaiFENesin [Mucinex] 600 mg PO BID 03/27/21 03/27/21 methocarbamoL [Robaxin] 500 mg PO TID 03/27/21 03/27/21 valACYclovir HCL [Valtrex] 500 mg PO BID 03/27/21 03/27/21 Previous Rx's Medication Instructions Recorded Metoprolol Tartrate [Lopressor] 25 mg PO BID #14 tablet 05/17/14 Metoprolol Tartrate 25 mg PO BID #30 tab 03/27/21 Ondansetron Odt [Zofran Odt] 4 mg PO Q8HR PRN #20 tab 03/27/21 HYDROcodone/APAP 5-325MG [[place] 1 tab PO Q6HR PRN 3 Days #12 tab 10/14/21 5-325] Ondansetron Odt [Zofran Odt] 4 mg PO Q8HR PRN #20 tab 10/14/21 Allergies Allergy/AdvReac Type Severity Reaction Status Date / Time metoclopramide HCl Allergy Anaphylaxis Verified 10/14/21 15:06 [From Reglan] morphine Allergy Anaphylaxis Verified 10/14/21 15:06 prochlorperazine edisylate Allergy Anaphylaxis Verified 10/14/21 15:06 [From Compazine] prochlorperazine maleate Allergy Anaphylaxis Verified 10/14/21 15:06 [From Compazine] Tetracyclines Allergy Anaphylaxis Verified 10/14/21 15:06 tramadol Allergy Anaphylaxis Verified 10/14/21 15:06 levofloxacin [From Levaquin] AdvReac Nausea & Verified 10/14/21 15:06 Vomiting Review of Systems ROS Statement: Those systems with pertinent positive or pertinent negative responses have been documented in the HPI. ROS Other: All systems not noted in ROS Statement are negative. Past Medical History Past Medical History: Cancer, GERD/Reflux, Hypertension, Myocardial Infarction ( [place]), Pneumonia Additional Past Medical History / Comment(s): pancreatitis, IBS, neuropathy, Raynauds, back PAIN, migraines, herniated disks C4 and C5; Cervical cancer (in remission), herpetic filemon History of Any Multi-Drug Resistant Organisms: None Reported Past Surgical History: Cholecystectomy, Tonsillectomy Additional Past Surgical History / Comment(s): neuroma, cervical coninition, permanent stitches in common bile duct and pancreatic, and sphincter of Oddi duct Past Anesthesia/Blood Transfusion Reactions: Postoperative Nausea & Vomiting (PONV) Additional Past Anesthesia/Blood Transfusion Reaction / Comment(s): pt states she has woken up in the middle of surgery before Past Psychological History: Anxiety, Depression, PTSD Smoking Status: Light tobacco smoker Past Alcohol Use History: None Reported Past Drug Use History: Marijuana - Past Family History Mother Family Medical History: Cancer, Hypertension Additional Family Medical History / Comment(s): ovarian cancer with mets to the lymph nodes Father Family Medical History: Cancer, Hypertension Additional Family Medical History / Comment(s): Lung CA General Exam Limitations: no limitations General appearance: alert, in no apparent distress Head exam: Present: atraumatic, normocephalic, normal inspection Eye exam: Present: normal appearance, PERRL, EOMI. Absent: scleral icterus, conjunctival injection, periorbital swelling ENT exam: Present: normal exam, mucous membranes moist Neck exam: Present: normal inspection. Absent: tenderness, meningismus, lymphadenopathy Respiratory exam: Present: normal lung sounds bilaterally. Absent: respiratory distress, wheezes, rales, rhonchi, stridor Cardiovascular Exam: Present: regular rate, normal rhythm, normal heart sounds. Absent: systolic murmur, diastolic murmur, rubs, gallop, clicks GI/Abdominal exam: Present: soft, tenderness (epigastric), normal bowel sounds. Absent: distended, guarding, rebound, rigid Extremities exam: Present: normal inspection, full ROM, normal capillary refill. Absent: tenderness, pedal edema, joint swelling, calf tenderness Back exam: Present: normal inspection Neurological exam: Present: alert, oriented X3, CN II-XII intact Psychiatric exam: Present: normal affect, normal mood Skin exam: Present: warm, dry, intact, normal color. Absent: rash Course Vital Signs 10/14/21 10/14/21 15:04 21:05 Temperature 98.5 F Pulse Rate 63 60 Respiratory 16 18 Rate Blood Pressure 142/86 159/85 O2 Sat by Pulse 98 96 Oximetry Medical Decision Making - Medical Decision Making Upon arrival patient was placed into room 3. A thorough history and physical exam was performed. IV was established. Patient was given nausea and pain meds. Laboratory studies were conducted. I did hold off on CT at this time as the patient has had 5 CTs in the past several years. Patient was agreeable to this. She is reevaluated after pain and nausea medications and reports to improvement in her symptoms. Patient will be discharged home with Tima. Instructed to follow-up with her GI physician in the emergency room for any new or worsening symptoms. Patient discharged home in stable condition - Lab Data Result diagrams: 10/14/21 19:03 10/14/21 19:03 Lab Results 10/14/21 10/14/21 10/14/21 Range/Units 17:29 19:03 19:03 WBC 7.3 (3.8-10.6) k/uL RBC 4.05 (3.80-5.40) m/uL Hgb 13.8 (11.4-16.0) gm/dL Hct 40.4 (34.0-46.0) % MCV 99.9 (80.0-100.0) fL MCH 34.0 (25.0-35.0) pg MCHC 34.0 (31.0-37.0) g/dL RDW 13.2 (11.5-15.5) % Plt Count 360 (150-450) k/uL MPV 7.8 Neutrophils % 55 % Lymphocytes % 37 % Monocytes % 4 % Eosinophils % 1 % Basophils % 1 % Neutrophils # 4.0 (1.3-7.7) k/uL Lymphocytes # 2.7 (1.0-4.8) k/uL Monocytes # 0.3 (0-1.0) k/uL Eosinophils # 0.1 (0-0.7) k/uL Basophils # 0.1 (0-0.2) k/uL Sodium 140 (137-145) mmol/L Potassium 3.8 (3.5-5.1) mmol/L Chloride 105 (98-107) mmol/L Carbon Dioxide 22 (22-30) mmol/L Anion Gap 13 mmol/L BUN 17 (7-17) mg/dL Creatinine 0.56 (0.52-1.04) mg/dL Est GFR (CKD-EPI)AfAm >90 (>60 ml/min/1.73 sqM) Est GFR (CKD-EPI)NonAf >90 (>60 ml/min/1.73 sqM) Glucose 90 (74-99) mg/dL Calcium 9.7 (8.4-10.2) mg/dL Magnesium 1.7 (1.6-2.3) mg/dL Total Bilirubin 0.4 (0.2-1.3) mg/dL AST 32 (14-36) U/L ALT 30 (4-34) U/L Alkaline Phosphatase 88 (38-126) U/L Troponin I (0.000-0.034) ng/mL Total Protein 7.5 (6.3-8.2) g/dL Albumin 4.7 (3.5-5.0) g/dL Lipase 92 (23-300) U/L Urine Color Yellow Urine Appearance Clear (Clear) Urine pH 6.5 (5.0-8.0) Ur Specific [place] 1.026 (1.001-1.035) Urine Protein Trace H (Negative) Urine Glucose (UA) Negative (Negative) Urine Ketones Negative (Negative) Urine Blood Negative (Negative) Urine Nitrite Negative (Negative) Urine Bilirubin Negative (Negative) Urine Urobilinogen 2.0 (<2.0) mg/dL Ur Leukocyte Esterase Trace H (Negative) Urine RBC 12 H (0-5) /hpf Urine WBC 1 (0-5) /hpf Ur Squamous Epith Cells <1 (0-4) /hpf Urine Mucus Occasional H (None) /hpf 10/14/21 Range/Units 19:03 WBC (3.8-10.6) k/uL RBC (3.80-5.40) m/uL Hgb (11.4-16.0) gm/dL Hct (34.0-46.0) % MCV (80.0-100.0) fL MCH (25.0-35.0) pg MCHC (31.0-37.0) g/dL RDW (11.5-15.5) % Plt Count (150-450) k/uL MPV Neutrophils % % Lymphocytes % % Monocytes % % Eosinophils % % Basophils % % Neutrophils # (1.3-7.7) k/uL Lymphocytes # (1.0-4.8) k/uL Monocytes # (0-1.0) k/uL Eosinophils # (0-0.7) k/uL Basophils # (0-0.2) k/uL Sodium (137-145) mmol/L Potassium (3.5-5.1) mmol/L Chloride (98-107) mmol/L Carbon Dioxide (22-30) mmol/L Anion Gap mmol/L BUN (7-17) mg/dL Creatinine (0.52-1.04) mg/dL Est GFR (CKD-EPI)AfAm (>60 ml/min/1.73 sqM) Est GFR (CKD-EPI)NonAf (>60 ml/min/1.73 sqM) Glucose (74-99) mg/dL Calcium (8.4-10.2) mg/dL Magnesium (1.6-2.3) mg/dL Total Bilirubin (0.2-1.3) mg/dL AST (14-36) U/L ALT (4-34) U/L Alkaline Phosphatase (38-126) U/L Troponin I <0.012 (0.000-0.034) ng/mL Total Protein (6.3-8.2) g/dL Albumin (3.5-5.0) g/dL Lipase (23-300) U/L Urine Color Urine Appearance (Clear) Urine pH (5.0-8.0) Ur Specific [place] (1.001-1.035) Urine Protein (Negative) Urine Glucose (UA) (Negative) Urine Ketones (Negative) Urine Blood (Negative) Urine Nitrite (Negative) Urine Bilirubin (Negative) Urine Urobilinogen (<2.0) mg/dL Ur Leukocyte Esterase (Negative) Urine RBC (0-5) /hpf Urine WBC (0-5) /hpf Ur Squamous Epith Cells (0-4) /hpf Urine Mucus (None) /hpf Disposition Clinical Impression: Abdominal pain Disposition: HOME SELF-CARE Condition: Stable Instructions (If sedation given, give patient instructions): Abdominal Pain (ED) Additional Instructions: Please follow up with your PCP in 2-4 days and return for any new or worsening symptoms. Prescriptions: HYDROcodone/APAP 5-325MG [[place] 5-325] 1 tab PO Q6HR PRN 3 Days #12 tab PRN Reason: Pain Ondansetron Odt [Zofran Odt] 4 mg PO Q8HR PRN #20 tab PRN Reason: Nausea Is patient prescribed a controlled substance at d/c from ED?: Yes When asked, does pt state using other controlled substances?: No If prescribed controlled substance>3 days was MAPS reviewed?: Prescribed <3 Days Referrals: Caroline Diamond MD [Primary Care Provider] - 1-2 days Time of Disposition: 20:43
[2021-10-14] MEDS ORDERED: ONDANSETRON 4 MG ODT STARTER PACK 2 TAB BTL PO STA (20:41)
[2021-10-14 21:06] VITALS: BP 159/85; PULSE 60; RESP 18
== END 2021-10-14 21:13 | disposition home or self-care (01) ==
LOC: EC 14:17
DX: R10.13 Epigastric pain (principal); K21.9 Gastro-esophageal reflux disease without esophagitis; I10 Essential (primary) hypertension; I25.2 Old myocardial infarction; F41.9 Anxiety disorder, unspecified; F32.A Depression, unspecified; F17.210 Nicotine dependence, cigarettes, uncomplicated; F12.90 Cannabis use, unspecified, uncomplicated; Z88.8 Allergy status to other drugs, medicaments and biological substances; Z88.6 Allergy status to analgesic agent; Z88.1 Allergy status to other antibiotic agents; Z88.5 Allergy status to narcotic agent; Z79.899 Other long term (current) drug therapy; Z79.82 Long term (current) use of aspirin
CPT/HCPCS: 36415; 80053; 83690; 83735; 84484; 85025; 81001; 99284; 96374; 96375; 96361 ×2; J2405; J1170; S0119

== ENCOUNTER 2022-06-25 14:36 | Emergency (ER) | payer MEDICARE, OTHER ==
[2022-06-25 14:52] VITALS: TEMP 98.2
[2022-06-25] MEDS ORDERED: SODIUM CHLORIDE 0.9% 1,000 ML IV ONE (16:42)
--- NOTE | 2022-06-25 16:46 | ED ---
General Adult HPI - General Chief complaint: Abdominal Pain Stated complaint: IBS Time Seen by Provider: 06/25/22 15:45 Source: patient Mode of arrival: ambulatory Limitations: no limitations - History of Present Illness Initial comments: This patient is a 56-year-old woman who presents with a constellation of symptoms that been going on for the past few days to week. She states she is having some diffuse abdominal discomfort. She has had some nausea, vomiting, and diarrhea that had developed a few days ago. She has not noted any blood with bowel movements or any dark tarry stools. She correlates this with the fact that she is having to spread out her Neurontin dosing. She stopped seeing her previous pain specialist, and has been referred to a new pains specialist she will start with on July 08. She was taking 800 mg Neurontin 4 times per day but has been getting by with less than that as she is trying to stretch the remaining medicines until her next appointment. She now feels like she is getting dehydrated. She is a little lightheaded when she stands. -: days(s) Location: abdomen Radiation: periumbilical Quality: other (Cramping) Consistency: intermittent Improves with: none Worsens with: none Associated Symptoms: nausea/vomiting Treatments Prior to Arrival: none - Related Data Home Medications Medication Instructions Recorded Confirmed Aspirin/Acetaminophen/Caffeine 1 tab PO Q12H PRN 05/12/18 06/25/22 [Excedrin Migraine Caplet] DULoxetine HCL [Cymbalta] 20 mg PO DAILY 03/27/21 06/25/22 Gabapentin [Neurontin] 1,200 mg PO TID 03/27/21 06/25/22 Melatonin [Melatonin ER] 40 mg PO HS 03/27/21 06/25/22 valACYclovir HCL [Valtrex] 500 mg PO DAILY 03/27/21 06/25/22 Amitriptyline(Unknown Dose) 1 tab PO HS 06/25/22 06/25/22 Atorvastatin [Lipitor] 10 mg PO HS 06/25/22 06/25/22 Ondansetron Odt [Zofran Odt] 4 mg PO Q8H PRN 06/25/22 06/25/22 Spirulina/Chlorella 1 dose PO DAILY 06/25/22 06/25/22 rOPINIRole HCL [Requip] 0.25 mg PO HS 06/25/22 06/25/22 Previous Rx's Medication Instructions Recorded Metoprolol Tartrate 25 mg PO BID #30 tab 03/27/21 HYDROcodone/APAP 5-325MG [[place] 1 tab PO Q6HR PRN 3 Days #12 tab 10/14/21 5-325] Gabapentin [Neurontin] 800 mg PO TID 3 Days #40 tab 06/25/22 Ondansetron Odt [Zofran ODT] 4 mg PO Q8HR PRN #10 tab 06/25/22 Allergies Allergy/AdvReac Type Severity Reaction Status Date / Time metoclopramide HCl Allergy Anaphylaxis Verified 06/25/22 16:58 [From Reglan] morphine Allergy Anaphylaxis Verified 06/25/22 16:58 prochlorperazine edisylate Allergy Anaphylaxis Verified 06/25/22 16:58 [From Compazine] prochlorperazine maleate Allergy Anaphylaxis Verified 06/25/22 16:58 [From Compazine] Tetracyclines Allergy Anaphylaxis Verified 06/25/22 16:58 tramadol Allergy Anaphylaxis Verified 06/25/22 16:58 levofloxacin [From Levaquin] AdvReac Nausea & Verified 06/25/22 16:58 Vomiting Review of Systems ROS Statement: Those systems with pertinent positive or pertinent negative responses have been documented in the HPI. ROS Other: All systems not noted in ROS Statement are negative. Constitutional: Denies: fever, chills Respiratory: Denies: cough, dyspnea Cardiovascular: Denies: chest pain Gastrointestinal: Reports: nausea, vomiting, diarrhea. Denies: abdominal pain, hematemesis, melena, hematochezia Genitourinary: Denies: dysuria, hematuria Musculoskeletal: Denies: back pain Skin: Denies: rash Neurological: Denies: headache, weakness, numbness Psychiatric: Reports: anxiety Past Medical History Past Medical History: Cancer, GERD/Reflux, Hypertension, Myocardial Infarction ([place]), Pneumonia Additional Past Medical History / Comment(s): pancreatitis, IBS, neuropathy, Raynauds, back PAIN, migraines, herniated disks C4 and C5; Cervical cancer (in remission), herpetic filemon History of Any Multi-Drug Resistant Organisms: None Reported Past Surgical History: Cholecystectomy, Tonsillectomy Additional Past Surgical History / Comment(s): neuroma, cervical coninition, permanent stitches in common bile duct and pancreatic, and sphincter of Oddi jl t Past Anesthesia/Blood Transfusion Reactions: Postoperative Nausea & Vomiting (PONV) Additional Past Anesthesia/Blood Transfusion Reaction / Comment(s): pt states she has woken up in the middle of surgery before Past Psychological History: Anxiety, Depression, PTSD Smoking Status: Light tobacco smoker Past Alcohol Use History: None Reported Past Drug Use History: Marijuana - Past Family History Mother Family Medical History: Cancer, Hypertension Additional Family Medical History / Comment(s): ovarian cancer with mets to the lymph nodes Father Family Medical History: Cancer, Hypertension Additional Family Medical History / Comment(s): Lung CA General Exam Limitations: no limitations General appearance: alert, in no apparent distress Head exam: Present: atraumatic, normocephalic Eye exam: Present: normal appearance. Absent: scleral icterus, conjunctival injection ENT exam: Present: mucous membranes dry Neck exam: Present: normal inspection Respiratory exam: Present: normal lung sounds bilaterally. Absent: respiratory distress, wheezes, rales, rhonchi, stridor Cardiovascular Exam: Present: regular rate, normal rhythm, normal heart sounds. Absent: systolic murmur, diastolic murmur, rubs, gallop GI/Abdominal exam: Present: soft. Absent: distended, tenderness, guarding, rebound, rigid, mass, pulsatile mass, hernia Extremities exam: Present: normal inspection, normal capillary refill. Absent: pedal edema, calf tenderness Back exam: Present: normal inspection. Absent: CVA tenderness (R), CVA tendern ess (L) Neurological exam: Present: alert Skin exam: Present: warm, dry, intact, normal color. Absent: rash Course Vital Signs 06/25/22 06/25/22 14:50 18:51 Temperature 98.2 F Pulse Rate 94 88 Respiratory 16 18 Rate Blood Pressure 141/92 134/78 O2 Sat by Pulse 97 99 Oximetry Medical Decision Making - Medical Decision Making This patient is 56-year-old woman who presents to have evaluation for symptoms she believes are related to taper her Neurontin. The workup here unremarkable other than probable mild dehydration. Patient is feeling much better and would like to go home. We discussed appropriate further care and follow-up as well as return parameters. The patient did request refill of the Neurontin that she is prescribed and I will do this on a one-time basis as this is a controlled substance. Was pt. sent in by a medical professional or institution (, SUNIL, DATABASE DEVELOPER, urgent care, hospital, or assisted...) When possible be specific @ -[No] Did you speak to anyone other than the patient for history (EMS, parent, family, police, friend...)? What history was obtained from this source @ -[No] Did you review nursing and triage notes (agree or disagree)? Why? @ -[I reviewed and agree with nursing and triage notes] Were old charts reviewed (outside hosp., previous admission, EMS record, old EKG, old radiological studies, urgent care reports/EKG's, assisted records)? Report findings @ -[No old charts were reviewed] Differential Diagnosis (chest pain, altered mental status, abdominal pain women, abdominal pain men, vaginal bleeding, weakness, fever, dyspnea, syncope, headache, dizziness, GI bleed, back pain, seizure, CVA, palpatations, mental health, musculoskeletal)? @ -[Differential Dizziness: Benign paroxysmal positional Vertigo, Menieres disease, otitis media, acoustic neuroma, vertebrobasilar insufficiency, cerebellar stroke, encephalitis, hypovolemic, arrhythmia, coronary artery syndrome, anemia, this is not meant to be an all-inclusive list EKG interpreted by me (3pts min.). @ -[ X-rays interpreted by me (1pt min.). @ -[ CT interpreted by me (1pt min.). @ -[None done] U/S interpreted by me (1pt. min.). @ -[None done] What testing was considered but not performed or refused? (CT, X-rays, U/S, labs)? Why? @ -[None] What meds were considered but not given or refused? Why? @ -[None] Did you discuss the management of the patient with other professionals (professionals i.e. , SUNIL, DATABASE DEVELOPER, lab, RT, psych nurse, psychotherapist social worker, butcher supervisor, teacher, chief security and safety officer, returned case inspector)? Give summary @ -[No] Was smoking cessation discussed for >3mins.? @ -[No] Was critical care preformed (if so, how long)? @ -[No] Were there social determinants of health that impacted care today? How? (Homelessness, low income, unemployed, alcoholism, drug addiction, transportation, low edu. Level, literacy, decrease access to med. care, [facility], rehab)? @ -[No] Was there de-escalation of care discussed even if they declined (Discuss DNR or withdrawal of care, Hospice)? DNR status @ -[No] What co-morbidities impacted this encounter? (DM, HTN, Smoking, COPD, CAD, Cancer, CVA, ARF, Chemo, Hep., AIDS, mental health diagnosis, sleep apnea, morbid obesity)? @ -[None] Was patient admitted / discharged? Hospital course, mention meds given and route, prescriptions, significant lab abnormalities, going to OR and other pertinent info. @ -Discharged Undiagnosed new problem with uncertain prognosis? @ -[No] Drug Therapy requiring intensive monitoring for toxicity (Heparin, Nitro, Insulin, Cardizem)? @ -[No] Were any procedures done? @ -[No] Diagnosis/symptom? @ -[Acute dehydration Possible Neurontin withdrawal Acute, or Chronic, or Acute on Chronic? @ -[Acute Uncomplicated (without systemic symptoms) or Complicated (systemic symptoms)? @ -[Uncomplicated Side effects of treatment? @ -[No] Exacerbation, Progression, or Severe Exacerbation? @ -[No] Poses a threat to life or bodily function? How? (Chest pain, [place], [place], pneumonia, PE, COPD, DKA, ARF, appy, cholecystitis, CVA, Diverticulitis, Homicidal, Suicidal, threat to staff... and all critical care pts) @ -[No] - Lab Data Result diagrams: 06/25/22 17:24 06/25/22 17:24 Lab Results 06/25/22 06/25/22 06/25/22 Range/Units 17:24 17:24 17:24 WBC 9.2 (3.8-10.6) k/uL RBC 4.38 (3.80-5.40) m/uL Hgb 14.4 (11.4-16.0) gm/dL Hct 42.3 (34.0-46.0) % MCV 96.5 (80.0-100.0) fL MCH 32.8 (25.0-35.0) pg MCHC 34.0 (31.0-37.0) g/dL RDW 12.8 (11.5-15.5) % Plt Count 285 (150-450) k/uL MPV 7.7 Neutrophils % 72 % Lymphocytes % 22 % Monocytes % 4 % Eosinophils % 1 % Basophils % 0 % Neutrophils # 6.6 (1.3-7.7) k/uL Lymphocytes # 2.1 (1.0-4.8) k/uL Monocytes # 0.4 (0-1.0) k/uL Eosinophils # 0.1 (0-0.7) k/uL Basophils # 0.0 (0-0.2) k/uL Sodium 142 (137-145) mmol/L Potassium 3.6 (3.5-5.1) mmol/L Chloride 105 (98-107) mmol/L Carbon Dioxide 24 (22-30) mmol/L Anion Gap 13 mmol/L BUN 13 (7-17) mg/dL Creatinine 0.54 (0.52-1.04) mg/dL Est GFR (CKD-EPI)AfAm >90 (>60 ml/min/1.73 sqM) Est GFR (CKD-EPI)NonAf >90 (>60 ml/min/1.73 sqM) Glucose 90 (74-99) mg/dL Calcium 9.5 (8.4-10.2) mg/dL Total Bilirubin 0.3 (0.2-1.3) mg/dL AST 26 (14-36) U/L ALT 20 (4-34) U/L Alkaline Phosphatase 88 (38-126) U/L Total Protein 8.0 (6.3-8.2) g/dL Albumin 4.8 (3.5-5.0) g/dL Amylase 68 (30-110) U/L Lipase 84 (23-300) U/L Urine Color Light Yellow Urine Appearance Clear (Clear) Urine pH 6.0 (5.0-8.0) Ur Specific [place] 1.013 (1.001-1.035) Urine Protein Negative (Negative) Urine Glucose (UA) Negative (Negative) Urine Ketones 1+ H (Negative) Urine Blood Trace H (Negative) Urine Nitrite Negative (Negative) Urine Bilirubin Negative (Negative) Urine Urobilinogen <2.0 (<2.0) mg/dL Ur Leukocyte Esterase Trace H (Negative) Urine RBC 3 (0-5) /hpf Urine WBC 1 (0-5) /hpf Ur Squamous Epith Cells 4 (0-4) /hpf Urine Bacteria Rare H (None) /hpf Urine Mucus Occasional H (None) /hpf Urine HCG, Qual (Not Detectd) 06/25/22 Range/Units 17:24 WBC (3.8-10.6) k/uL RBC (3.80-5.40) m/uL Hgb (11.4-16.0) gm/dL Hct (34.0-46.0) % MCV (80.0-100.0) fL MCH (25.0-35.0) pg MCHC (31.0-37.0) g/dL RDW (11.5-15.5) % Plt Count (150-450) k/uL MPV Neutrophils % % Lymphocytes % % Monocytes % % Eosinophils % % Basophils % % Neutrophils # (1.3-7.7) k/uL Lymphocytes # (1.0-4.8) k/uL Monocytes # (0-1.0) k/uL Eosinophils # (0-0.7) k/uL Basophils # (0-0.2) k/uL Sodium (137-145) mmol/L Potassium (3.5-5.1) mmol/L Chloride (98-107) mmol/L Carbon Dioxide (22-30) mmol/L Anion Gap mmol/L BUN (7-17) mg/dL Creatinine (0.52-1.04) mg/dL Est GFR (CKD-EPI)AfAm (>60 ml/min/1.73 sqM) Est GFR (CKD-EPI)NonAf (>60 ml/min/1.73 sqM) Glucose (74-99) mg/dL Calcium (8.4-10.2) mg/dL Total Bilirubin (0.2-1.3) mg/dL AST (14-36) U/L ALT (4-34) U/L Alkaline Phosphatase (38-126) U/L Total Protein (6.3-8.2) g/dL Albumin (3.5-5.0) g/dL Amylase (30-110) U/L Lipase (23-300) U/L Urine Color Urine Appearance (Clear) Urine pH (5.0-8.0) Ur Specific [place] (1.001-1.035) Urine Protein (Negative) Urine Glucose (UA) (Negative) Urine Ketones (Negative) Urine Blood (Negative) Urine Nitrite (Negative) Urine Bilirubin (Negative) Urine Urobilinogen (<2.0) mg/dL Ur Leukocyte Esterase (Negative) Urine RBC (0-5) /hpf Urine WBC (0-5) /hpf Ur Squamous Epith Cells (0-4) /hpf Urine Bacteria (None) /hpf Urine Mucus (None) /hpf Urine HCG, Qual Not Detected (Not Detectd) Disposition Clinical Impression: Dehydration Disposition: HOME SELF-CARE Condition: Good Instructions (If sedation given, give patient instructions): Dehydration (ED) Prescriptions: Gabapentin [Neurontin] 800 mg PO TID 3 Days #40 tab Ondansetron Odt [Zofran ODT] 4 mg PO Q8HR PRN #10 tab PRN Reason: Nausea Is patient prescribed a controlled substance at d/c from ED?: No Referrals: Sandy Ballard MD [Primary Care Provider] - 1-2 days
[2022-06-25 17:39] LABS: Basophils % (A) 0 %; Eosinophils # (A) 0.1 k/uL (0-0.7); Eosinophils % (A) 1 %; HCT 42.3 % (34.0-46.0); HGB 14.4 gm/dL (11.4-16.0); Lymphocytes # (A) 2.1 k/uL (1.0-4.8); Lymphocytes % (A) 22 %; MCH 32.8 pg (25.0-35.0); MCV 96.5 fL (80.0-100.0); Mean Platelet Volume 7.7; Monocytes # (A) 0.4 k/uL (0-1.0); Monocytes % (A) 4 %; Neutrophils # (A) 6.6 k/uL (1.3-7.7); Neutrophils % (A) 72 %; Platelet Count 285 k/uL (150-450); RBC 4.38 m/uL (3.80-5.40); RDW 12.8 % (11.5-15.5); WBC 9.2 k/uL (3.8-10.6)
[2022-06-25 17:50] LABS: Appearance,Urine Clear (Clear); Bacteria,Urine Rare /hpf; Bilirubin,Urine Negative (Negative); Blood,Urine Trace (Negative); Color,Urine Light Yellow; Glucose,Urine (UA) Negative (Negative); Ketones,Urine 1+ (Negative); Leukocyte Esterase,Urine Trace (Negative); Mucus,Urine Occasional /hpf; Nitrite,Urine Negative (Negative); Protein,Urine Negative (Negative); RBC,Urine 3 /hpf (0-5); Specific Gravity,Urine 1.013 (1.001-1.035); Squamous Epithelial Cell,Urine 4 /hpf (0-4); Urobilinogen,Urine <2.0 mg/dL (<2.0); WBC,Urine 1 /hpf (0-5)
[2022-06-25 17:57] LABS: ALT 20 U/L (4-34); AST 26 U/L (14-36); African American GFR (CKD) >90 (>60 ml/min/1.73 sqM); Albumin 4.8 g/dL (3.5-5.0); Alkaline Phosphatase 88 U/L (38-126); Amylase 68 U/L (30-110); Anion Gap 13 mmol/L; Blood Urea Nitrogen 13 mg/dL (7-17); Calcium 9.5 mg/dL (8.4-10.2); Carbon Dioxide 24 mmol/L (22-30); Chloride 105 mmol/L (98-107); Glucose 90 mg/dL (74-99); Lipase 84 U/L (23-300); Non-African American GFR(CKD) >90 (>60 ml/min/1.73 sqM); Potassium 3.6 mmol/L (3.5-5.1); Sodium 142 mmol/L (137-145); Total Bilirubin 0.3 mg/dL (0.2-1.3)
[2022-06-25 18:52] VITALS: BP 134/78; PULSE 88; RESP 18
== END 2022-06-25 18:52 | disposition home or self-care (01) ==
LOC: EC 14:36
DX: E86.0 Dehydration (principal); I10 Essential (primary) hypertension; I25.2 Old myocardial infarction; F32.A Depression, unspecified; F41.9 Anxiety disorder, unspecified; K21.9 Gastro-esophageal reflux disease without esophagitis; F17.200 Nicotine dependence, unspecified, uncomplicated; F12.90 Cannabis use, unspecified, uncomplicated; Z79.899 Other long term (current) drug therapy; Z88.1 Allergy status to other antibiotic agents; Z88.5 Allergy status to narcotic agent; Z88.8 Allergy status to other drugs, medicaments and biological substances; Z90.49 Acquired absence of other specified parts of digestive tract
CPT/HCPCS: 36415; 80053; 81001; 81025; 82150; 83690; 85025; 96360; 99284

== ENCOUNTER → 2022-07-10 | Outpatient (CLI) | payer MEDICARE, OTHER ==
[2022-07-10 14:06] VITALS: BP 166/109; PULSE 118; RESP 18; TEMP 98.9
--- NOTE | 2022-07-10 14:49 | P.PAINPG ---
PQRS Measure Charge Sheet Comment: HISTORY OF PRESENT ILLNESS: 56 yr old female as a referral from Dr Ballard presents today w severe and chronic LBP secondary to DDD, spondylosis and facet arthropathy without myelopathy for evaluation. Pt states pain level is provoked at 7/10 in intensity, constant, localized in the lower lumbar spine, dull, achy in character w shooting pain towards the BLEs. Pain is provoked by lifting. Pain is alleviated by at home exercises, massage therapy semi monthly in 2020, chiropractic treatments 10 yrs ago, heat, ice, medications (Neurontin, Excedrin), topical, repositioning and rest. Pt states her pain clinic whom prescribes Neurontin at [facility] relocated to [facility] and she has limited transportation there. PMH: Asthma, Cervical CA GERD, HTN, MO, IBS, Raynauds Phenomenon, MDD/ Anxiety/ PTSD PSH: Cholecystectomy, Tonsillectomy, Cervical Coninition, SH: Current tobacco use, No ETOH abuse, Cannabis use. Lives 1 housemate & son. FH: Mo- HTN, Ovarian CA. Fa- HTN, Lung CA All: See list Meds: See list REVIEW OF ORGAN SYSTEMS: CONSTITUTIONAL: No fevers or chills. No recent weight loss. NEUROLOGICAL: + numbness and tingling along the distal extremities. No seizure disorders or headaches. MUSCULOSKELETAL: + pain PSYCHIATRIC: Denies current depression or suicidal thoughts. Physical Examinations : Constitutional : Cooperative , not in acute distress . Neurologic : Cranial nerve II to XII intact. No focal neurological deficits. Psychiatric : alert & oriented x 3. Matching mood & appropriate affect. Judgment & insight intact. Musculoskeletal : Cervical Spine Motor strength in the deltoid and biceps: Normal right side. Normal Left side Motor strength biceps and the wrist extensors: Normal right side . Normal left side Motor strength in the triceps muscle: Normal right side. Normal left side Deep tendon reflexes: Normal at the biceps. Normal at Brachioradialis. Normal at triceps Vertebral body tenderness to deep palpation over Cervical facet loading test: positive bilaterally Spurling test: positive bilaterally Neck distraction test: positive bilaterally Alirio sign: positive bilaterally Lumbar spine Motor strength lower extremities ,thigh and legs 5/5 Right side , 5/5 Left side Deep tendon reflexes : Normal Knee Jerk. Normal Ankle Jerk Vertebral body tenderness over Brasher Test positive Lumbar facet Loading Test: positive Right / positive Left Range of motion of the lumbar spine Flexion 30 degrees, extension 10 degrees Straight Leg Raise test: Left/ Right positive at degree [place] test: positive right / positive left. Severe tenderness over the Sacroiliac joint on the Right / Left sides Gaenslen test: positive bilaterally Seated flexion test: positive bilaterally. Sacral spine : Severe tenderness over the Sacroiliac joint: right side / left side Range of motion: Flexion of the lumbar spine <60 degrees Range of motion: Extension of the lumbar spine <20 degrees Gaenslen's Test positive Galen's Test positive [place] test: positive right side / left side Thigh Thrust Test Sacral Thrust Test Imaging: None on file Assessment/ Plan : Lumbar DDD Recommendation of follow up w her facility, either through telehealth or in person. Pt is not a narcotic agreement candidate due to her Cannabis use. Pt's original narcotic agreement still in effect. All questions answered. I have spent greater than 30 minutes on patient care today. Dr Correa was available by phone for the evaluation of this patient. The time was used to review the medical records including relevant urine studies and Prescription history (MAPs), review of the available imaging, evaluation and examination of the patient, coordination of care with the medical staff and if applicable referring physicians, as well as creation of the medical record PQRS Narrative: Smoking Status Current every day smoker Home Medications: Ambulatory Orders Aspirin/Acetaminophen/Caffeine [Excedrin Migraine Caplet] 1 tab PO Q12H PRN 05/12/18 DULoxetine HCL [Cymbalta] 20 mg PO DAILY 03/27/21 Gabapentin [Neurontin] 1,200 mg PO TID 03/27/21 Melatonin [Melatonin ER] 40 mg PO HS 03/27/21 Metoprolol Tartrate 25 mg PO BID #30 tab 03/27/21 valACYclovir HCL [Valtrex] 500 mg PO DAILY 03/27/21 HYDROcodone/APAP 5-325MG [[place] 5-325] 1 tab PO Q6HR PRN 3 Days #12 tab 10/14/21 Amitriptyline(Unknown Dose) 1 tab PO HS 06/25/22 Atorvastatin [Lipitor] 10 mg PO HS 06/25/22 Gabapentin [Neurontin] 800 mg PO TID 3 Days #40 tab 06/25/22 Ondansetron Odt [Zofran ODT] 4 mg PO Q8HR PRN #10 tab 06/25/22 Ondansetron Odt [Zofran Odt] 4 mg PO Q8H PRN 06/25/22 Spirulina/Chlorella 1 dose PO DAILY 06/25/22 rOPINIRole HCL [Requip] 0.25 mg PO HS 06/25/22 Controlled Substance Measures - Controlled Substance Measures Is patient prescribed a controlled substance at discharge?: No
== END ==
LOC: PNWHC3 12:56
PROVIDERS: ATTEND Specialist
DX: M51.36 Other intervertebral disc degeneration, lumbar region (principal); M50.90 Cervical disc disorder, unspecified, unspecified cervical region; F17.200 Nicotine dependence, unspecified, uncomplicated; J45.909 Unspecified asthma, uncomplicated; K21.9 Gastro-esophageal reflux disease without esophagitis; I10 Essential (primary) hypertension; I25.2 Old myocardial infarction; F41.9 Anxiety disorder, unspecified; F32.9 Major depressive disorder, single episode, unspecified; F43.10 Post-traumatic stress disorder, unspecified; Z79.82 Long term (current) use of aspirin; Z88.8 Allergy status to other drugs, medicaments and biological substances; Z88.1 Allergy status to other antibiotic agents; Z88.6 Allergy status to analgesic agent; Z88.5 Allergy status to narcotic agent; Z79.899 Other long term (current) drug therapy
CPT/HCPCS: 99211